=== PATIENT | female | born 1975 | race Caucasian/White ===

== ENCOUNTER 2021-06-03 12:23 | Outpatient (REF) | payer MEDICAID, SELFPAY ==
--- NOTE | ~2021-06-03 | CT_ITS ---
EXAMINATION: CT ABDOMEN AND PELVIS WITH CONTRAST CLINICAL INFORMATION: Left lower quadrant pain COMPARISON: None TECHNIQUE: Multidetector volumetric images were obtained from the superior aspect of the liver through the pubic symphysis following administration 85 mL of Omnipaque 350 intravenous contrast. Sagittal and coronal reformatted images were obtained on the technologist's workstation. Oral contrast: Yes This CT examination was performed using dose optimization techniques as appropriate, variously including the following: *Automated exposure control *Adjustment of mA and/or kV according to patient size (this includes techniques or standardized protocols for targeted exams where dose is matched to indication/reason for exam; i.e. extremities or head) *Use of iterative reconstruction technique DLP: 372 mGy-cm FINDINGS: LUNG BASES: The visualized lung bases are unremarkable. LIVER, GALLBLADDER, AND BILIARY TREE: The liver is normal in size, shape, and attenuation. No focal hepatic lesion or biliary ductal dilatation is present. The gallbladder is unremarkable with no evidence of radiopaque gallstones, gallbladder wall thickening, or obvious pericholecystic inflammatory changes. PANCREAS: Unremarkable. SPLEEN: Unremarkable. ADRENAL GLANDS: Unremarkable. KIDNEYS AND URETERS: The kidneys are normal in size, shape, and attenuation. No hydronephrosis, hydroureter, or calculi seen. No perinephric stranding. BLADDER: Unremarkable. GASTROINTESTINAL TRACT: There is a large amount of stool in the colon suggestive of constipation. The small and large bowel are otherwise unremarkable. The appendix is unremarkable. ABDOMINAL WALL: No significant hernia is appreciated. LYMPH NODES: Normal. VASCULAR: Unremarkable. PELVIC VISCERA: There is a small 2 cm left ovarian cyst. Uterus and adnexa are otherwise unremarkable. OSSEOUS STRUCTURES: Unremarkable. CT/CT abdomen pelvis w con IMPRESSION: Constipation. Small 2 cm left ovarian cyst.
[2021-06-03] MEDS: iohexoL 350 MG/ML 100 ML INFUS..BTL IV (15:28)
[2021-06-03] MEDS: Barium Sulfate Oral (Vanilla) 450 ML ORAL.SUSP 900 ML PO (15:29)
== END 2021-06-03 12:24 | disposition home or self-care (01) ==
LOC: HO.CT 12:23
PROVIDERS: PCP Internal Medicine; Visit Provider Internal Medicine
DX: R10.32 Left lower quadrant pain (principal)
CPT/HCPCS: 74177; Q9967

== ENCOUNTER 2021-06-29 11:57 | Outpatient (REF) | payer MEDICAID, SELFPAY ==
--- NOTE | ~2021-06-29 | XR_ITS ---
EXAMINATION: XR CERVICAL SPINE CLINICAL INFORMATION: Cervicalgia. COMPARISON: None TECHNIQUE: 6 views of the cervical spine, inclusive of flexion and extension views, were obtained. FINDINGS: Some mild degenerative changes are present at C4-C5, C5-C6 and C6-C7. They are most marked, but still somewhat mild at C5-C6, where there is the most joint space narrowing. Foramina are widely patent. No fractures, soft tissue swelling or bony destructive lesions. XR/XR cervical spine min 6V IMPRESSION: Negative exam aside from some mild degenerative changes as described above.
== END 2021-06-29 11:58 | disposition home or self-care (01) ==
LOC: HO.XRAY 11:57
PROVIDERS: Absent Provider Internal Medicine; PCP Internal Medicine; Visit Provider Emergency Medicine
DX: M54.2 Cervicalgia (principal)
CPT/HCPCS: 72052

== ENCOUNTER 2021-07-01 10:30 | Outpatient (REF) | payer MEDICAID, SELFPAY ==
--- NOTE | ~2021-07-01 | MM_ITS ---
EXAMINATION: MM DIAGNOSTIC DIGITAL BREAST TOMOSYNTHESIS, BILATERAL US DIAGNOSTIC ULTRASOUND BREAST, LEFT CLINICAL INFORMATION: Upper left breast pain for approximately one week. No palpable mass or discharge. Due for yearly. Family history breast cancer, paternal aunt. The lifetime risk of breast cancer based on the Tyrer-Cuzick Model is 10%. COMPARISON: Mammography: 11/17/2016, 02/21/2013 TECHNIQUE: Digital breast tomosynthesis is performed in both the craniocaudal and mediolateral oblique views along with computer-aided detection (CAD). Synthesized 2D images are generated from the tomosynthesis. Ultrasound left breast is targeted to the areas of clinical concern, imaging 9:00 through 3:00 position. Grayscale imaging and color Doppler are performed without and with harmonics. FINDINGS: There are scattered areas of fibroglandular density (ACR BI-RADS breast composition Category b). There are no significant masses, abnormal calcifications, or other abnormalities. Parenchymal pattern is similar to prior studies. There is no developing density or interval architectural changes. No coarsening of the Skinny's ligaments. No skin thickening. The axilla are unremarkable. Ultrasound demonstrates no cystic or solid mass, architectural abnormality, or focal duct ectasia. There is no skin thickening or edema tracking in the soft tissue planes. Results are discussed with the patient at time of visit. MM/MM tomosynthesis diagnostic BI IMPRESSION: No mammographic evidence of malignancy or inflammatory changes. Unremarkable targeted left breast ultrasound. ASSESSMENT: BI-RADS 1: Negative RECOMMENDATION: 1. Patient's left breast pain should be managed based on the clinical impression. 2. Otherwise, routine annual screening mammography. This patient's information was entered into a reminder system with a target due date for their next mammogram.
== END 2021-07-01 10:31 | disposition home or self-care (01) ==
LOC: HO.MAMMO 10:30
PROVIDERS: PCP Internal Medicine; Visit Provider Advanced Practice Midwife
DX: N64.4 Mastodynia (principal)
CPT/HCPCS: 76642; 77062; 77066

== ENCOUNTER 2021-07-14 10:09 | Outpatient (REF) | payer MEDICAID, SELFPAY ==
--- NOTE | ~2021-07-14 | US_ITS ---
EXAMINATION: US PELVIS CLINICAL INFORMATION: Dysmenorrhea COMPARISON: Previous CT of the abdomen and pelvis May 2021 TECHNIQUE: Ultrasound of the pelvis is performed using both transabdominal and transvaginal transducers along with Doppler. Transvaginal imaging is performed due to inadequate visualization transabdominally. FINDINGS: The uterus is anteverted and measures 9 x 4.3 x 5 cm in dimension. No focal uterine lesion is seen. Endometrial thickness is normal measuring 1.1 cm. There are nabothian cysts in the cervix. The ovaries are normal-appearing. The right ovary measures 3.5 x 1.3 x 2.2 cm and the left ovary measures 4.3 x 2.4 x 2.2 cm. There is no fluid in the pelvis. There are prominent pelvic vessels bilaterally questionable for pelvic congestion. US/US pelvic and transvaginal IMPRESSION: Prominent bilateral pelvic vessels questionable for pelvic congestion. Otherwise unremarkable exam.
== END 2021-07-14 10:10 | disposition home or self-care (01) ==
LOC: HO.HMGCX 10:09
PROVIDERS: PCP Internal Medicine; Visit Provider Advanced Practice Midwife
DX: N92.0 Excessive and frequent menstruation with regular cycle (principal); N94.6 Dysmenorrhea, unspecified
CPT/HCPCS: 76830; 76856

== ENCOUNTER 2021-12-10 09:46 | Outpatient (REF) | payer MEDICAID, SELFPAY ==
--- NOTE | ~2021-12-10 | US_ITS ---
EXAMINATION: US PELVIS CLINICAL INFORMATION: Pain. COMPARISON: Previous ultrasound July [address] of the abdomen and pelvis May 2021. TECHNIQUE: Ultrasound of the pelvis is performed using both transabdominal and transvaginal transducers along with Doppler. Transvaginal imaging is performed due to inadequate visualization transabdominally. FINDINGS: The uterus is anteverted and measures 8.3 x 4.3 x 5.6 cm in dimension. Endometrial thickness is normal measuring 1.2 cm. No focal uterine lesion is seen. There are small nabothian cysts in the cervix. The right ovary is normal-appearing and measures 4.1 x 2.4 x 2.3 cm. The left ovary measures 3.6 x 2.3 x 2.2 cm. There is a 2.6 x 2.2 x 1.7 cm complex left ovarian cyst. This is irregularly shaped. This has a thickened echogenic wall and internal echoes. This may represent an involuting physiologic cyst. Of note, complex left ovarian cyst is seen on May [address] and previous pelvic ultrasound July 2021 and it is uncertain whether this could represent the same cyst. There is no fluid in the pelvis. US/US pelvic and transvaginal IMPRESSION: 2.6 x 2.2 x 1.7 cm complex left ovarian cyst, question representing an involuting or hemorrhagic cyst. Complex left ovarian cyst is seen on May [address] and previous pelvic ultrasound July 2021 and it is uncertain whether this could represent the same cyst.
== END 2021-12-10 09:47 | disposition home or self-care (01) ==
LOC: HO.HMGCX 09:46
PROVIDERS: PCP Internal Medicine; Visit Provider Internal Medicine
DX: R10.2 Pelvic and perineal pain (principal)
CPT/HCPCS: 76830; 76856

== ENCOUNTER 2022-06-13 07:22 | Outpatient (REF) | payer MEDICAID, SELFPAY | END 2022-06-13 07:23 | disposition home or self-care (01) | LOC: HO.MAMMO 07:22 | PROVIDERS: PCP Internal Medicine; Visit Provider Obstetrics & Gynecology | DX: Z13.89 Encounter for screening for other disorder (principal) ==

== ENCOUNTER 2022-07-19 07:41 | Outpatient (REF) | payer MEDICAID, SELFPAY ==
--- NOTE | ~2022-07-19 | MM_ITS ---
EXAMINATION: MM SCREENING DIGITAL BREAST TOMOSYNTHESIS, BILATERAL CLINICAL INFORMATION: Screening. Asymptomatic. COMPARISON: Mammography: 07/01/2021 and studies dating back to 02/21/2013 TECHNIQUE: Digital breast tomosynthesis is performed in both the craniocaudal and mediolateral oblique views along with computer-aided detection (CAD). Synthesized 2D images are generated from the tomosynthesis. FINDINGS: There are scattered areas of fibroglandular density (ACR BI-RADS breast composition Category b). There is a stable parenchymal pattern of the right breast with no new abnormal dominant mass or suspicious grouping of microcalcifications. There is a question region of architectural distortion which is not completely imaged on left breast craniocaudal projection deep lateral aspect as well as 2 densities seen on the mediolateral oblique projection in the deep superior aspect. Spot compression views and possible ultrasound recommended. MM/MM tomosynthesis screening BI IMPRESSION: Left breast findings for further evaluation as described. ASSESSMENT: BI-RADS 0: Incomplete - Need Additional Imaging Evaluation RECOMMENDATION: 1. Additional views of the left breast 2. Targeted ultrasound if warranted after review of the additional views. 3. Radiology department staff will contact the patient for additional imaging. This patient's information was entered into a reminder system with a target due date for their next mammogram.
== END 2022-07-19 07:42 | disposition home or self-care (01) ==
LOC: HO.MAMMO 07:41
PROVIDERS: PCP Internal Medicine; Visit Provider Internal Medicine
DX: Z12.31 Encounter for screening mammogram for malignant neoplasm of breast (principal)
CPT/HCPCS: 77063; 77067

== ENCOUNTER 2022-07-22 08:40 | Outpatient (REF) | payer MEDICAID, SELFPAY ==
--- NOTE | ~2022-07-22 | MM_ITS ---
EXAMINATION: MM DIAGNOSTIC DIGITAL BREAST TOMOSYNTHESIS, LEFT US BREAST TARGETED, LEFT CLINICAL INFORMATION: Density deep upper outer aspect of the left breast. COMPARISON: Mammography: 07/19/2022 and studies dating back to 02/21/2013 TECHNIQUE: Digital breast tomosynthesis is performed. 2D images are generated from the tomosynthesis. The following views are obtained: Spot compression views and exaggerated craniocaudal and mediolateral oblique projections. Targeted left breast ultrasound. FINDINGS: MAMMOGRAM: There are scattered areas of fibroglandular density (ACR BI-RADS breast composition Category b). Additional views show no significant mass, architectural abnormality, or abnormal calcifications. The questioned region of architectural distortion compresses out and is shown to demonstrate some position of fibroglandular tissue. There is also noted to be a circumscribed density with what appears to be some internal fat within the upper outer aspect of the left breast approximately 5 cm from the nipple measuring 4 x 4 mm in size. This likely represents an intramammary lymph node or cyst. There is persistence of a faintly seen density in the region of the left axilla with measuring approximately 6 x 4 mm area. US TARGETED EXAMINATION BREAST APPROXIMATELY 4 CM NIPPLE, LEFT: There is a simple appearing cyst. Targeted ultrasound at approximately 2 o'clock position 9 cm from nipple demonstrated a cystic structure with the appearance of complex cyst without any internal vascularity or distal sound shadowing. There is some distal sound enhancement and the lesion is wider than it is tall. No suspicious-appearing masses seen. There are some normal-appearing lymph nodes within the axilla with smooth margins, normal fatty clefts, and no evidence of cortical thickening or lobulation. This measures approximately 9 x 4 x 5 mm in size. Recommend 6 month follow-up mammogram and ultrasound. Results are discussed with the patient at time of visit. MM/MM tomosynthesis added views L IMPRESSION: Complex-appearing cyst, deep upper outer aspect of the left breast, for which 6 month follow-up mammography and ultrasound is recommended. ASSESSMENT: BI-RADS 3: Probably Benign RECOMMENDATION: Diagnostic mammography in 6 months. This patient's information was entered into a reminder system with a target due date for their next mammogram.
== END 2022-07-22 08:41 | disposition home or self-care (01) ==
LOC: HO.MAMMO 08:40
PROVIDERS: PCP Internal Medicine; Visit Provider Internal Medicine
DX: R92.2 Inconclusive mammogram (principal)
CPT/HCPCS: 76642; 77061; 77065

== ENCOUNTER 2023-09-16 08:42 | Outpatient (REF) | payer MEDICAID, SELFPAY | END 2023-09-16 08:43 | disposition home or self-care (01) | LOC: HO.LAB 08:42 | PROVIDERS: PCP Internal Medicine; Visit Provider Internal Medicine | DX: Z00.00 Encounter for general adult medical examination without abnormal findings (principal); G43.909 Migraine, unspecified, not intractable, without status migrainosus | CPT/HCPCS: 36415; 80048; 80061; 80076; 85025 ==

== ENCOUNTER 2023-10-13 14:27 | Outpatient (REF) | payer MEDICAID, SELFPAY ==
--- NOTE | ~2023-10-13 | US_ITS ---
EXAMINATION: US PELVIS COMPLETE CLINICAL INFORMATION: Complex ovarian cyst; the last menstrual period is not specified. COMPARISON: Pelvic ultrasound dated 12/10/2021. TECHNIQUE: Transabdominal and transvaginal imaging were performed. FINDINGS: The uterus is of normal size and echogenicity measuring 7.3 x 3.8 x 4.9 cm. The uterus is anteverted and anteflexed. A regular, homogeneous endometrium is identified measuring 0.6 cm. FIBROIDS: There is 1 fibroid seen. 1. Location: Fundus. Size: 1.0 x 0.8 x 1.0 cm. Fibroid characteristics: Hypoechoic, possibly showing central degenerative necrosis. Both ovaries are of normal size and echogenicity. The right ovary measures 2.9 x 1.2 x 1.9 cm for a volume of 3.5 mL. The right ovary contains a 1.1 cm dominant, simple physiologic follicle. This requires no imaging follow-up. The left ovary measures 3.1 x 2.1 x 2.5 cm for a volume of 8.5 mL. There is no pelvic free fluid. No adnexal mass is seen. US/US pelvic and transvaginal IMPRESSION: A small degenerating fundal fibroid is seen. The examination is otherwise unremarkable.
== END 2023-10-13 14:28 | disposition home or self-care (01) ==
LOC: HO.US 14:27
PROVIDERS: PCP Internal Medicine; Visit Provider Internal Medicine
DX: N60.09 Solitary cyst of unspecified breast (principal)
CPT/HCPCS: 76830; 76856

== ENCOUNTER 2023-12-26 11:29 | Outpatient (REF) | payer MEDICAID, SELFPAY ==
[2023-12-28 22:39] LABS: TS Negative Control Passed; TS Panel A 0; TS Panel B 0; TS Positive Control Passed; TSpotTB Negative (Negative)
== END 2023-12-26 11:30 | disposition home or self-care (01) ==
LOC: HO.HHCL 11:29
PROVIDERS: Visit Provider Internal Medicine
DX: Z11.1 Encounter for screening for respiratory tuberculosis (principal)
CPT/HCPCS: 36415; 86481

== ENCOUNTER 2024-05-10 15:08 | Outpatient (REF) | payer MEDICAID, SELFPAY ==
--- NOTE | ~2024-05-10 | CT_ITS ---
EXAMINATION: CT HEAD WITHOUT CONTRAST CLINICAL INFORMATION: Left facial numbness for 2 to 3 weeks COMPARISON: None available. TECHNIQUE: Contiguous axial imaging was performed from the skull base to vertex without intravenous administration of contrast. This CT examination was performed using dose optimization techniques as appropriate, variously including the following: *Automated exposure control *Adjustment of mA and/or kV according to patient size (this includes techniques or standardized protocols for targeted exams where dose is matched to indication/reason for exam; i.e. extremities or head) *Use of iterative reconstruction technique DLP: 713 mGy-cm RESULTS: There is no evidence of acute intracranial hemorrhage, acute large vessel infarct, midline shift or mass effect. The tang-white differentiation is preserved. The ventricles and sulci are within normal limits in size and configuration. There is no evidence of hydrocephalus. There are no extraaxial collections. Osseous structures are intact. Paranasal sinuses and mastoid air cells are well aerated. CT/CT head/brain wo IV con IMPRESSION: Unremarkable non-contrast CT of the brain. Electronically signed by: Melyssa Andersen MD 05/11/2024 11:45 AM EDT
== END 2024-05-10 15:09 | disposition home or self-care (01) ==
LOC: HO.CT 15:08
PROVIDERS: PCP Internal Medicine; Visit Provider Registered Nurse
DX: R20.0 Anesthesia of skin (principal); R20.2 Paresthesia of skin; R20.8 Other disturbances of skin sensation
CPT/HCPCS: 70450

== ENCOUNTER 2024-09-17 15:14 | Outpatient (REF) | payer MEDICAID, SELFPAY ==
--- NOTE | ~2024-09-17 | XR_ITS ---
EXAMINATION: Left shoulder and cervical spine. CLINICAL INDICATION: Neck pain and left shoulder pain. COMPARISON: Cervical spine 06/29/2021 TECHNIQUE: Cervical spine 3 views. Left shoulder 3 views. FINDINGS: Cervical spine: There is maintained cervical lordosis. The vertebral heights and alignment is normal. There is mild loss of C5-6 disc height with mild posterior spondylosis. Rest the disc heights are normal. The craniovertebral junction and C1-C2 alignment is normal. There is no visible acute fracture, dislocation or subluxation seen. The prevertebral soft tissues are normal. Left shoulder: The glenohumeral and AC joint spaces maintain normal. No acute fracture, dislocation or subluxation seen. The soft tissues are normal. XR/XR cervical spine 3V IMPRESSION: Unremarkable left shoulder exam. Degenerative disc changes C5-6 disc level with mild posterior spondylosis. Electronically signed by: Stefano Noel MD 09/17/2024 04:21 PM [facility]
--- NOTE | ~2024-09-17 | XR_ITS ---
EXAMINATION: Left shoulder and cervical spine. CLINICAL INDICATION: Neck pain and left shoulder pain. COMPARISON: Cervical spine 06/29/2021 TECHNIQUE: Cervical spine 3 views. Left shoulder 3 views. FINDINGS: Cervical spine: There is maintained cervical lordosis. The vertebral heights and alignment is normal. There is mild loss of C5-6 disc height with mild posterior spondylosis. Rest the disc heights are normal. The craniovertebral junction and C1-C2 alignment is normal. There is no visible acute fracture, dislocation or subluxation seen. The prevertebral soft tissues are normal. Left shoulder: The glenohumeral and AC joint spaces maintain normal. No acute fracture, dislocation or subluxation seen. The soft tissues are normal. XR/XR shoulder LT min 2V IMPRESSION: Unremarkable left shoulder exam. Degenerative disc changes C5-6 disc level with mild posterior spondylosis. Electronically signed by: Stefano Noel MD 09/17/2024 04:21 PM [facility]
== END 2024-09-17 15:15 | disposition home or self-care (01) ==
LOC: HO.HHCX 15:14
PROVIDERS: Visit Provider Internal Medicine
DX: M54.2 Cervicalgia (principal); M25.512 Pain in left shoulder
CPT/HCPCS: 72040; 73030

== ENCOUNTER → 2024-09-17 15:15 | Outpatient (BNV) | payer MEDICAID, SELFPAY | PROVIDERS: Visit Provider Radiology Diagnostic Radiology | DX: M25.512 Pain in left shoulder (principal); M54.2 Cervicalgia | CPT/HCPCS: 72040; 73030 ==

== ENCOUNTER 2024-09-23 13:03 | Outpatient (REF) | payer MEDICAID, SELFPAY | END 2024-09-23 13:04 | disposition home or self-care (01) | LOC: HO.HHCLNP 13:03 | PROVIDERS: Visit Provider Internal Medicine | DX: R35.0 Frequency of micturition (principal) | CPT/HCPCS: 87086 ==

== ENCOUNTER 2024-10-08 05:57 | Outpatient (REF) | payer MEDICAID, SELFPAY ==
--- NOTE | 2024-10-08 | EMG_ITS ---
Left median and ulnar motor and sensory studies were performed. Left radial sensory and median and lateral antecubital brachial sensory studies were performed, and paraspinal muscles were tested with a needle. IMPRESSION: This is an unremarkable study with no significant abnormality noted. MD STEVEN Collazo/ROZ / [id number]
--- OUTSIDE RECORDS SUMMARY | 2024-10-08 05:59 | XMS_ITS | Encounter Summary ---
Author Organization [employer] Address [address] [place] [address] [address] [place] [address] Care Team Providers Care Industrial Retrofit Designer Name Role Phone Gilmer Alvarez MD Primary Care Provide r Encounter Details Date Type Department Care Team (Late Contact Info) Description 09/08/2022 Telephone [facility] [address] [place] [address] [phone] Gilmer Alvarez MD [address] [place] [address] [phone] Social History Tobacco Use Types Packs/Day Years Used Date Smoking Tobacco: Never Assessed Comments Unknown Sex and Gender Information Value Date Recorded Sex Assigned at Female 07/11/2022 10:16 AM EDT Legal Sex Female 10:16 AM EDT Gender Identity Female 07/11/2022 10:16 AM EDT Sexual Orientation Straight 07/11/2022 10 :16 AM EDT COVID-19 Exposure Response Date Recorded In the last 10 days, have yo u been in contact with someone who was confirmed or suspected to have Coronavirus/COVID-19? No / Unsure 09/01/2022 10:22 AM EST documented as of this encounter Plan of Treatment Upcoming Encounters Date Type Department Care Team (Late st Contact Info) Description 11/19/2024 11:15 AM EDT Office Visit [facility] [address] [place] [phone] Gilmer Alvarez MD [address] [place] [address] [phone] documented as of this encounter Visit Diagnoses Not on filedocumented in this encounter Care Teams Industrial Retrofit Designer Relationship Specialty Start Date End Date Gilmer Alvarez MD [address] [place] [address] PCP - General Internal Medicine 06/18/14 documented as of this encounter
--- OUTSIDE RECORDS SUMMARY | 2024-10-08 05:59 | XMS_ITS | Encounter Summary ---
Author Organization [employer] Address [address] [place] [address] Care Team Providers Care Sap Administrator Name Role Phone Gilmer Alvarez MD Primary Care Provide r Encounter Details Date Type Department Care Team ([facility] st Contact Info) Description 09/17/2024 Telephone [facility] [address] [place], [place] [phone] Gilmer Alvarez MD [address] [place], [place] [phone] Social History Tobacco Use Types Packs/Day Years Used Date Smoking Tobacco: Never Passive Smoke Exposure: Never Smokeless Tobacco: Never Depression Answer Date Recorded Patient Health Questionnaire-9 Score 0 09/17/2024 Patient Health Questionnaire-9 Score 0 09/17/2024 Last PHQ-9: Questionnaire Data Not on file 0 09/17/2024 Housing Stability Answer Date Recorded What is your housing situation today? I have veronica pleitez 09/05/[address] you li ve. Do you have problems with any of the following? None of the above 09/05/2024 Food Insecurity Answer Date Recorded Within the past 12 months, y ou worried that your food would run out before you got money to buy more: Never True 09/05/2024 Within the past 12 months,th e food you bought just didn't last and you didn't have enough money to get more: Never True Transportation Answer Date Recorded In the past 12 months, has l ack of transportation kept you from medical appts, meetings, work or from getting things needed for daily living? No 09/05/2024 Utilities Answer Date Recorded In the past 12 months, has t he electric, gas, oil or water company threatened to shut off services in your home? No 09/05/2024 Depression Answer Date Recorded Patient Health Questionnaire-2 Score 0 09/17/2024 Internet Access Answer Date Recorded Internet Access Q1 Yes 09/05/2024 Internet Access Q2 Not on file 09/05/2024 Comments Unknown Sex and Gender Information Value Date Recorded Sex Assigned at Female 07/11/2022 10:16 AM EDT Legal Sex Female 10:16 AM EDT Gender Identity Female 07/11/2022 10:16 AM EDT Sexual Orientation Straight 07/11/2022 10 :16 AM EDT documented as of this encounter Plan of Treatment Upcoming Encounters Date Type Department Care Team (Late st Contact Info) Description 11/19/2024 11:15 AM EDT Office Visit [facility] [address] [place] [phone] Gilmer Alvarez MD [address] [place] [phone] documented as of this encounter Visit Diagnoses Not on filedocumented in this encounter Additional Health Concerns Assessment Noted Time PHQ-9 Depression Total Score: 0 09/17/19 25 2:35 PM EST documented as of this encounter Care Teams Sap Administrator Relationship Specialty Start Date End Date Gilmer Alvarez MD [address] [place] [phone] PCP - General Internal Medicine 06/18/14 documented as of this encounter
--- OUTSIDE RECORDS SUMMARY | 2024-10-08 05:59 | XMS_ITS | Clinical Summary ---
Author Organization [facility] Address [address] [place] [address] Phone Care Team Providers Care Family Therapist Name Role Phone Gilmer Silverio MD Primary Care Provi kirsty Allergies No known active allergies Medications Medication Sig Dispensed Refills Start Date End Date Status diphenhydrAMINE (BENADRYL) 25 mg capsule Take 1 capsule (25 mg total) by mouth every 4 (four) hours if needed for itching for up to 4 days. 16 capsule 08/07/2024 Active predniSONE (DELTASONE) 20 mg tablet Take 3 tablets (60 mg total) by mouth 1 (one) time each day. 15 tablet 09/25/2024 Active doxycycline (MONODOX) 100 mg capsule Take 1 capsule (100 mg total) by mouth 2 (two) times a day for 7 days. Take with at least 8 ounces (large glass) of water, do not lie down for 30 minutes after 14 each 09/25/2024 10/02/2024 Active Problems No known active problems Encounters Date Type Department Care Team Description 09/25/2024 6:20 PM EST - 09/25/2024 10:38 PM EST Emergency [facility] Emergency [address] [place] [address] Yogi Carrillo DO Acute cough (Primary Dx) Discharge Disposition: Home or Self Care 08/07/2024 10:44 AM EST - 08/07/2024 11:21 AM EST Emergency [facility] Emergency [address] [place] [address] Tinea corporis (Primary Dx) Discharge Disposition: Home or Self Care from Last 3 Months Medical History Medical History Date Comments Migraines Asthma Social History Tobacco Use Types Packs/Day Years Used Date Smoking Tobacco: Never Smokeless Tobacco: Never Tobacco Cessation:Counseling Given: Not Answered Alcohol Use Standard Drinks/Week Comments Not Asked 0 (1 standard drink = 0.6 oz pur e alcohol) Sex and Gender Information Value Date Recorded Sex Assigned at Female 08/07/2024 10:56 AM EST Gender Identity Female 08/07/2024 10:56 AM EST Sexual Orientation Straight 08/07/2024 10 :56 AM EST Job Start Date Occupation Industry Not on file Not on file Not on file Obstetrics History Last Filed Vital Signs Vital Sign Reading Time Taken Comments Blood Pressure 134/72 09/25/2024 10:18 PM EST Pulse 111 09/25/2024 10:18 PM EST Temperature 37 ??C (98.6 ??F) 09/25/2024 10:18 PM EST Respiratory Rate 26 09/25/2024 6:07 PM EST Oxygen Saturation 96% 09/25/2024 10:18 PM EST Inhaled Oxygen Concentration - - Weight 72.6 kg (160 lb) 09/25/2024 6:07 PM EST Height 154.9 cm (5' 1 ) 09/25/2024 6:07 PM EST Body Mass Index 30.23 09/25/2024 6:07 PM EST Plan of Treatment Health Maintenance Due Date Last Done Comments Breast Cancer Screening 1975 Pneumococcal Vaccine: Pediatrics (0 to 5 Years) and At-Risk Patients (6 to 64 Years) (1 of 2 - PCV) 12/04/1981 Cervical Cancer Screening: P ap Smear 12/04/1996 Cholesterol Screening (Lipid Panel) 08/14/2022 Colorectal Cancer Screening: Colonoscopy 08/14/2022 Social Influencers of Health Screening 08/14/2022 COVID-19 Vaccine (2023-2 5 season) 2024 09/17/2021, 02/23/2021, 01/26/2021 Influenza Vaccine (#1) 2024 06/23/2021 Depression Screening 09/17/2025 09/17/2024 Hypertension/CHF/CAD Annual BMP Blood Test 09/25/2025 09/25/2024 DTaP,Tdap,and Td Vaccines (2 - Td or Tdap) 06/23/2031 06/23/2021 Hepatitis B Vaccines Completed 02/18/2009, 08/26/2008, 07/10/2008 HIV Screening Completed 09/02/2022 Hepatitis C Screening Completed 09/02/2022 HIB Vaccines Aged Out No longer eligi ble based on patient's age to complete this topic HPV Vaccines Aged Out No longer eligi ble based on patient's age to complete this topic Hepatitis A Vaccines Aged Out No long er eligible based on patient's age to complete this topic IPV Vaccines Aged Out No longer eligi ble based on patient's age to complete this topic MMR Vaccines Aged Out No longer eligi ble based on patient's age to complete this topic Meningococcal ACWY Vaccine Aged Out N o longer eligible based on patient's age to complete this topic RSV Immunization Patients Under 20 months Aged Out No longer eligible b ased on patient's age to complete this topic Varicella Vaccines Aged Out No longer eligible based on patient's age to complete this topic Procedures Procedure Name Priority Date/Time Associated Diagnosis Comments XR CHEST 2 VIEWS STAT 09/25/2024 9:20 PM EST COMPREHENSIVE METABOLIC PANEL STAT 09/25/2024 7:31 PM EST COMPLETE BLOOD COUNT STAT 09/25/2024 7:31 PM EST RESPIRATORY VIRUS PANEL MOLECULAR STUDY STAT 09/25/2024 7:25 PM EST from Last 3 Months Results * XR Chest 2 Views (09/25/2024 9:20 PM EST) Anatomical Region Laterality Modality Body Radiographic Rebecca ging 09/26/2024 8:31 AM EST Impressions 09/26/2024 8:31 AM EST Normal chest radiographs. -------- FINAL REPORT -------- Dictated By: Enmanuel Friend Dictated Date: 09/26/2024 08:31 ET Assigned Physician: Enmanuel Friend Reviewed and Electronically Signed By: Enmanuel Friend Signed Date: 09/26/2024 08:31 ET Workstation ID: [id number] Transcribed By: Self Edit Transcribed Date: 09/26/2024 08:31 ET Narrative 09/26/2024 8:31 AM EST PROCEDURE: PA and lateral radiographs of the chest. HISTORY: dyspnea. COMPARISON: 12/18/2023. FINDINGS: The heart, mediastinum, lungs, pleural spaces, and bony thorax are normal. Procedure Note Enmanuel Friend MD - 09/26/2024 PROCEDURE: PA and lateral radiographs of the chest. HISTORY: dyspnea. COMPARISON: 12/18/2023. FINDINGS: The heart, mediastinum, lungs, pleural spaces, and bony thorax arenormal. IMPRESSION: Normal chest radiographs. -------- FINAL REPORT -------- Dictated By: Enmanuel Friend Dictated Date: 09/26/2024 08:31 ET Assigned Physician: Enmanuel Friend Reviewed and Electronically Signed By: Enmanuel Friend Signed Date: 09/26/2024 08:31 ET Workstation ID: [id number] Transcribed By: Self Edit Transcribed Date: 09/26/2024 08:31 ET Lauri PERDOMO IMG XR PROCEDURES * (ABNORMAL) CBC (09/25/2024 7:31 PM EST) WBC 18.7(H) 4.8 - 10.8 K/mcL LAB HEMETOLOGY METHOD 09/25/2024 8:08 PM [facility] RBC 5.10(H) 3.80 - 4.80 M/mcL LAB HEMETOLOGY METHOD 09/25/2024 8:08 PM [facility] Hemoglobin 13.4 11.5 - 16.0 g/dL LAB HEMETOLOGY METHOD 09/25/2024 8:08 PM [facility] Hematocrit 42.1 35.0 - 47.0 % LAB HEMETOLOGY METHOD 09/25/2024 8:08 PM [facility] MCV 82.9 79.0 - 98.0 FL LAB HEMETOLOGY METHOD 09/25/2024 8:08 PM EST [facility] MCH 26.4(L) 27.0 - 32.0 pcg LAB HEMETOLOGY METHOD 09/25/2024 8:08 PM EST [facility] MCHC 31.8(L) 32.0 - 37.0 g/dL LAB HEMETOLOGY METHOD 09/25/2024 8:08 PM EST [facility] RDW 15.7(H) 11.0 - 15.0 % LAB HEMETOLOGY METHOD 09/25/2024 8:08 PM [facility] Platelets 427(H) 130 - 400 K/mcL LAB HEMETOLOGY METHOD 09/25/2024 8:08 PM [facility] MPV 11.7(H) 7.0 - 11.0 FL LAB HEMETOLOGY METHOD 09/25/2024 8:08 PM EST [facility] NRBC 0.0 <1.0 % LAB HEMETOLOGY METHOD 09/25/2024 8:08 PM EST [facility] NRBC Absolute 0.00 <0.10 K/mcL LAB HEMETOLOGY METHOD 09/25/2024 8:08 PM [facility] Blood Venous blood specimen / Unknown Venipuncture / Unknown 09/25/2024 7:31 PM EST 09/25/2024 7:57 PM EST Chio Ritchie DO LAB BLOOD ORDERAB LES [facility] [address] [place] [address], * (ABNORMAL) Comprehensive metabolic panel (09/25/2024 7:31 PM EST) Sodium 137 133 - 145 mmol/L LAB CHEMISTRY METHOD 09/25/2024 8:54 PM EST [facility] Potassium 3.7 3.5 - 5.5 mmol/L LAB CHEMISTRY METHOD 09/25/2024 8:54 PM [facility] Chloride 106 96 - 110 mmol/L LAB CHEMISTRY METHOD 09/25/2024 8:54 PM [facility] CO2 23 21 - 32 mmol/L LAB CHEMISTRY METHOD 09/25/2024 8:54 PM [facility] Anion Gap 8 3 - 11 LAB CHEMISTRY METHOD 09/25/2024 8:54 PM [facility] Glucose 98 70 - 100 mg/dL LAB CHEMISTRY METHOD 09/25/2024 8:54 PM [facility] BUN 16 5 - 25 mg/dL LAB CHEMISTRY METHOD 09/25/2024 8:54 PM [facility] Creatinine 0.86 0.50 - 1.10 mg/dL LAB CHEMISTRY METHOD 09/25/2024 8:54 PM [facility] eGFR 83 >=60 mL/min/1. 73m2 LAB CHEMISTRY METHOD 09/25/2024 8:54 PM [facility] Comment:Calculation based on the??Chronic Kidney Disease Epidemiology Collaboration (CKD-EPI) equation refit??without adjustment for race. BUN/Creatinine Ratio 18.6 LAB CHEMISTRY METHOD 09/25/2024 8:54 PM [facility] Calcium 9.7 8.5 - 10.5 mg/dL LAB CHEMISTRY METHOD 09/25/2024 8:54 PM [facility] AST (SGOT) 52(H) 10 - 42 unit/L LAB CHEMISTRY METHOD 09/25/2024 8:54 PM [facility] ALT (SGPT) 64(H) 10 - 60 unit/L LAB CHEMISTRY METHOD 09/25/2024 8:54 PM [facility] Alkaline Phosphatase 99 42 - 121 unit/L LAB CHEMISTRY METHOD 09/25/2024 8:54 PM [facility] Total Protein 8.4(H) 6.0 - 8.0 g/dL LAB CHEMISTRY METHOD 09/25/2024 8:54 PM EST [facility] Albumin 4.3 3.2 - 5.0 g/dL LAB CHEMISTRY METHOD 09/25/2024 8:54 PM EST [facility] Total Bilirubin 0.3 0.0 - 1.4 mg/dL LAB CHEMISTRY METHOD 09/25/2024 8:54 PM EST [facility] Blood Venous blood specimen / Unknown Venipuncture / Unknown 09/25/2024 7:31 PM EST 09/25/2024 7:57 PM EST Chio Haji Ritchie DO LAB BLOOD ORDERAB LES [facility] [address] [place] [address], * Respiratory virus panel molecular study (09/25/2024 7:25 PM EST) Adenovirus Detection by PCR Not Detected Not Detected LAB MICROBIOLOGY METHOD 09/25/2024 9:18 PM [facility] Influenza A PCR Not Detected Not Detected LAB MICROBIOLOGY METHOD 09/25/2024 9:18 PM [facility] Influenza B PCR Not Detected Not Detected LAB MICROBIOLOGY METHOD 09/25/2024 9:18 PM [facility] Coronavirus 229E Not Detected Not Detected LAB MICROBIOLOGY METHOD 09/25/2024 9:18 PM EST [facility] Coronavirus HKU1 Not Detected Not Detected LAB MICROBIOLOGY METHOD 09/25/2024 9:18 PM EST [facility] Coronavirus OC43 Not Detected Not Detected LAB MICROBIOLOGY METHOD 09/25/2024 9:18 PM [facility] Coronavirus NL63 Not Detected Not Detected LAB MICROBIOLOGY METHOD 09/25/2024 9:18 PM EST [facility] Parainfluenza Virus 1 Not Detected Not Detected LAB MICROBIOLOGY METHOD 09/25/2024 9:18 PM [facility] Parainfluenza Virus 2 Not Detected Not Detected LAB MICROBIOLOGY METHOD 09/25/2024 9:18 PM [facility] Parainfluenza Virus 3 Not Detected Not Detected LAB MICROBIOLOGY METHOD 09/25/2024 9:18 PM [facility] Parainfluenza Virus 4 Not Detected Not Detected LAB MICROBIOLOGY METHOD 09/25/2024 9:18 PM [facility] RSV PCR Not Detected Not Detected LAB MICROBIOLOGY METHOD 09/25/2024 9:18 PM [facility] Human Metapneumovirus A and B Not Detected Not Detected LAB MICROBIOLOGY METHOD 09/25/2024 9:18 PM [facility] Rhinovirus/Entero virus Not Detected Not Detected LAB MICROBIOLOGY METHOD 09/25/2024 9:18 PM [facility] Bordetella pertussis Not Detected Not Detected LAB MICROBIOLOGY METHOD 09/25/2024 9:18 PM [facility] Bordetella parapertussis Not Detected Not Detected LAB MICROBIOLOGY METHOD 09/25/2024 9:18 PM [facility] Mycoplasma pneumo by PCR Not Detected Not Detected LAB MICROBIOLOGY METHOD 09/25/2024 9:18 PM [facility] Chlamydia pneumoniae Not Detected Not Detected LAB MICROBIOLOGY METHOD 09/25/2024 9:18 PM [facility] SARS COV-2 Not Detected Not Detected LAB MICROBIOLOGY METHOD 09/25/2024 9:18 PM [facility] Swab Both anterior nares / Unknown Non-blood Collection / Unknown 09/25/2024 7:25 PM EST 09/25/2024 8:17 PM EST [facility] - 09/25/2024 9:18 PM EST Testing was performed using the [employer] Respiratory Pathogen PCR Assay. All results must be correlated with the clinical findings. Results should not be used as the sole basis for diagnosis. False Negative results may occur from the presence of sequence variants in the region targeted by the assay or the presence of inhibitors. Results may be affected by concurrent antiviral/antimicrobial therapy or levels of organisms that are below the limit of detection. Yogi Carrillo DO LAB MICROBIOLOGY - G ENERAL ORDERABLES [facility] [address] [place] [address], from Last 3 Months Care Teams Family Therapist Relationship Specialty Start Date End Date Gilmer Silverio MD [address] [place] [address] PCP - General Internal Medicine 08/07/24
--- OUTSIDE RECORDS SUMMARY | 2024-10-08 05:59 | XMS_ITS | Clinical Summary ---
Author Organization [employer] Address [address] [place] [address] Care Team Providers Care Stain Applicator Name Role Phone Gilmer Alvarez MD Primary Care Provide r Allergies No known active allergies Medications * This document contains information received from the source organization and may not represent a complete record from that organization. ibuprofen 800 MG tablet TAKE 1 TABLET BY MOUTH THREE TIMES DAILY NEEDED FOR PAIN 06/27/20 22 Active polyethylene glycol, PEG, 3350 (Glycolax) 17 GM/SCOOP powder TAKE 17 GM MIXED IN 8 OUNCES OF WATER ONCE DAILY 01/25/20 22 Active FeroSul 325 (65 Fe) MG tablet TAKE 1 TABLET BY MOUTH EVERY OTHER DAY 90 tablet 01/04/20 23 Active rizatriptan (Maxalt) 10 MG tablet TAKE 1 TABLET BY MOUTH EVERY DAY AT ONSET OF MIGRAINE, MAY REPEAT IN 4 HOURS NEEDED, DO NOT EXCEED 2 DOSES / 24 HOURS 10/10/19 24 Active topiramate 50 MG tablet Take 1 tablet by mouth at bedtime. 10/10/19 24 Active ondansetron ODT (Zofran-ODT) 4 MG disintegrating tablet DISSOLVE 1 TABLET BY MOUTH EVERY DAY NEEDED FOR NAUSEA 20 tablet 11/09/19 24 Active omeprazole (PriLOSEC) [address] capsule TAKE 1 CAPSULE BY MOUTH EVERY DAY 30 MINUTES TO 1 HOUR BEFORE A MEAL 90 capsule 11/10/19 24 Active SUMAtriptan (Imitrex) 50 MG tablet TAKE 1 TABLET BY MOUTH AT ONSET OF MIGRAINE. MAY REPEAT ONCE AFTER 2 HOURS IF NEEDED DO NOT EXCEED 4 TABLETS IN 24 HOURS 6 tablet 01/25/20 24 Active buPROPion XL (Wellbutrin XL) 150 MG 24 hr tabletIndications: Depressive disorder Take 1 tablet (150 mg) by mouth Once per day. Do not crush, chew, or split. 30 tablet 6 03/05/20 24 Active hydrOXYzine pamoate (Vistaril) 25 MG capsuleIndications :Anxiety TAKE 1 CAPSULE BY MOUTH EVERY 8 HOURS NEEDED FOR ANXIETY 90 capsule 1 04/22/20 24 Active fluticasone (Flonase) 50 MCG/ACT nasal sprayIndications:R ight ear pain Administer 1-2 sprays into each nostril Once per day. Shake gently. Before first use, prime pump. After use, clean tip and replace cap. 16 g 2 08/02/20 24 025 Active cetirizine (ZyrTEC) 10 MG tabletIndications: Right ear pain Take 1 tablet (10 mg) by mouth Once per day. 30 tablet 5 08/02/20 24 025 Active clotrimazole (Lotrimin) 1 % creamIndications:T inea corporis Apply to affected area of skin twice a day until resolved, between 1-3 weeks. 60 g 1 08/05/20 24 Active amLODIPine (Norvasc) 2.5 MG tabletIndications: Primary hypertension Take 1 tablet (2.5 mg) by mouth Once per day. 30 tablet 3 08/15/20 24 Active Blood Pressure kitIndications:Lucia trey hypertension Use once a week 1 kit 09/17/19 25 Active predniSONE (Deltasone) 20 MG tabletIndications: Cough, unspecified type 2 tabs po daily for 5 days 10 tablet 09/23/19 25 Active predniSONE (Deltasone) 20 MG tabletIndications: Cervical spondylosis,Numbne ss and tingling in left arm 2 tabs po daily for 5 days 10 tablet 04/24/20 24 025 Discontinu ed(Therapy completed) guaiFENesin (Robitussin) 100 MG/5ML liquidIndications: Cough, unspecified type Take 10 mL (200 mg) by mouth if needed in the morning, at noon, and at bedtime for cough for up to 10 days. 120 mL 09/17/19 25 025 Discontinu ed(Therapy completed) benzonatate (Tessalon Perles) 100 MG capsuleIndications :Cough, unspecified type Take 1 capsule (100 mg) by mouth if needed in the morning, at noon, and at bedtime for cough for up to 7 days. Do not crush or chew. 20 capsule 09/23/19 25 025 acetaminophen (Tylenol Extra Strength) 500 MG tabletIndications: Cough, unspecified type Take 1 tablet (500 mg) by mouth every 6 (six) hours if needed for mild pain for up to 10 days. 30 tablet 09/23/19 25 025 Active Problems Problem Noted Date Diagnosed Date Neck pain on left side 09/17/2024 Assessment & Plan (09/17/2024 2:54 PM EST): Pt with c/o left sided neck pain radiates to left shoulder and arm Exam: evidence of muscle spasm Plan: Plain films, PT eval NCS to rule out radiculopathy Acute pain of left shoulder 09/17/2024 Assessment & Plan (09/17/2024 2:54 PM EST): Pt with c/o left sided neck pain radiates to left shoulder and arm Exam: evidence of muscle spasm Plan: Plain films, PT eval NCS to rule out radiculopathy Cough 09/17/2024 Assessment & Plan (09/17/2024 3:04 PM EST): Pt with mild non productive cough, lungs CTA B. Neg rapid flu and neg rapid covid tests Plan: Supportive measures, guaifenesin PRN. Ok to go back to work Subconjunctival hemorrhage of left eye Assessment & Plan (08/15/2024 12:16 PM EST): -no other symptoms -appointment for tomorrow with [facility] eye care 3:30 -Advised to go to ER for increased pain, vision changes, worsening symptoms or concerns. She agrees with the plan. Primary hypertension 08/15/2024 Assessment & Plan (09/17/2024 2:57 PM EST): Pt's blood pressure elevated recently started on Amlodipine 2.5mg daily 08/15/24. At [facility] Pt did not take it today Plan: BP monitor Follow up 8 weeks Assessment & Plan (08/15/2024 12:15 PM EST): -restart amlodipine 2.5mg daily 08/15/24 Breast pain, left 03/05/2024 Assessment & Plan (09/17/2024 2:41 PM EST): Pt had a Mammogram 07/2022 that showed a complex-appearing cyst, deep upper outer aspect of the left breast, for which 6 month follow-up mammography and ultrasound was recommended. Repeat Mammogram 03/15/2023 showed a suspicious mass for which a breast biopsy was recommended Biopsy was done 03/29/2023 . No evidence of malignancy, 6 month follow up was recommended Pt last visit c/o persistent pain left breast She was referred back to the Breast and wellness Ctr at [facility]. She was seen 04/03/2024 and reassured that there was no breast sources of her pain and it was likely referred pain Assessment & Plan (03/05/2024 1:10 PM EDT): Pt had a Mammogram 07/2022 that showed a complex-appearing cyst, deep upper outer aspect of the left breast, for which 6 month follow-up mammography and ultrasound was recommended. Repeat Mammogram 03/15/2023 showed a suspicious mass for which a breast biopsy was recommended Biopsy was done 03/29/2023 . No evidence of malignancy, 6 month follow up was recommended Pt today c/o persistent pain left breast Plan: Will refer back to the Breast and wellness Ctr at [facility] Adjustment disorder with anxiety 12/13/2023 Assessment & Plan (12/13/2023 11:32 AM EDT): During [facility]BH Consult Purnima presenting with excessive worry/anxiety, difficulty controlling worry, restless/keyed up/On edge, easily fatigued, difficulty concentrating/Mind going blank , irritability, muscle tension, and sleep disturbance difficulty falling asleep and palpitations, trembling/shaking, sensation of shortness of breath/smothering, Chest pain/discomfort, nausea/abdominal distress, dizzy/unsteady/light-headed/faint, numbness/tingling, fear of losing control, Persistent concern/worry of panic attacks or their consequences; for a period of 0-6 mo, for all symptoms in the context of illness or family illness. Purnima received bad news from the hospital where her is currently staying. This news is leading to increase of symptoms and episodes of panic attacks. Pt reports having difficulty adjusting to drastic changes. Made a plan to utilize when experiencing high increase of sxs which includes coping mechanisms to regulate emotions. Pt interested on starting medication to help with sleep routine. Request sent to provider. PLAN: (check all that apply) Behavioral Health Integration Plan Patient Self Plan Patient to utilize skills provided in intervention , Patient to reach out to [facility] team as needed, Comply with medication , and Patient to reach out to [facility] as needed. Varicose vein of leg 09/12/2023 09/12/2023 Complex cyst of breast 09/12/2023 Assessment & Plan (09/17/2024 2:42 PM EST): Pt had a Mammogram 07/2022 that showed a complex-appearing cyst, deep upper outer aspect of the left breast, for which 6 month follow-up mammography and ultrasound was recommended. Repeat Mammogram 03/15/2023 showed a suspicious mass for which a breast biopsy was recommended Biopsy was done 03/29/2023 . No evidence of malignancy, 6 month follow up was recommended She was referred back to the Breast and wellness Ctr at [facility]. She was seen 04/03/2024 and reassured that there was no breast sources of her pain and it was likely referred pain Assessment & Plan (03/05/2024 1:10 PM EDT): Pt had a Mammogram 07/2022 that showed a complex-appearing cyst, deep upper outer aspect of the left breast, for which 6 month follow-up mammography and ultrasound was recommended. Repeat Mammogram 03/15/2023 showed a suspicious mass for which a breast biopsy was recommended Biopsy was done 03/29/2023 . No evidence of malignancy, 6 month follow up was recommended Pt today c/o persistent pain left breast Plan: Will refer back to the Breast and wellness Ctr at [facility] Breast mass, left 09/01/2022 Assessment & Plan (09/12/2023 10:55 AM EST): Pt had a Mammogram 07/2022 that showed a complex-appearing cyst, deep upper outer aspect of the left breast, for which 6 month follow-up mammography and ultrasound was recommended. Repeat Mammogram 03/15/2023 showed a suspicious mass for which a breast biopsy is recommended Biopsy was done 03/29/2023 . No evidence of malignancy, 6 month follow up was recommended Scheduled for 10/04/2023 per her report Assessment & Plan (04/11/2023 4:34 PM EDT): Pt had a Mammogram 07/2022 that showed a complex-appearing cyst, deep upper outer aspect of the left breast, for which 6 month follow-up mammography and ultrasound was recommended. Repeat Mammogram 03/15/2023 showed a suspicious mass for which a breast biopsy is recommended Biopsy was done 03/29/2023 . No evidence of malignancy, 6 month follow up was recommended Assessment & Plan (09/01/2022 4:29 PM EST): Pt had a Mammogram 07/2022 that showed a complex-appearing cyst, deep upper outer aspect of the left breast, for which 6 month follow-up mammography and ultrasound was recommended. This will need to be done in 01/2023. Pt was also referred to [facility], seen 08/10/2022 Complex cyst of left ovary 09/01/2022 Assessment & Plan (01/11/2024 9:46 AM EDT): Pt had c/o pelvic pain, work up included a Pelvic U/S done in 12/10/2021 that showed: 2.6 x 2.2 x 1.7 cm complex left ovarian cyst, question representing an involuting or hemorrhagic cyst. Complex left ovarian cyst is seen on May [address] and previous pelvic ultrasound July 2021 and it is uncertain whether this could represent the same cyst. Pt was referred to [employer] [employer] . Pt tells me she is going to schedule an appointment. She tells me she is seeing someone at [facility] Repeat Pelvic US 10/2023 showed:A small degenerating fundal fibroid is seen. The examination is otherwise unremarkable. Assessment & Plan (09/12/2023 11:02 AM EST): Pt had c/o pelvic pain, work up included a Pelvic U/S done in 12/10/2021 that showed: 2.6 x 2.2 x 1.7 cm complex left ovarian cyst, question representing an involuting or hemorrhagic cyst. Complex left ovarian cyst is seen on May [address] and previous pelvic ultrasound July 2021 and it is uncertain whether this could represent the same cyst. Pt was referred to [facility] . Pt tells me she is going to schedule an appointment. She tells me she is seeing someone at [facility] Will repeat Pelvic US Assessment & Plan (09/01/2022 10:51 AM EST): Pt had c/o pelvic pain, work up included a Pelvic U/S done in 12/10/2021 that showed: 2.6 x 2.2 x 1.7 cm complex left ovarian cyst, question representing an involuting or hemorrhagic cyst. Complex left ovarian cyst is seen on May [address] and previous pelvic ultrasound July 2021 and it is uncertain whether this could represent the same cyst. Pt was referred to [facility] Physical exam, routine 09/01/2022 Assessment & Plan (09/12/2023 10:52 AM EST): Physical exam today within normal limits Assessment & Plan (09/01/2022 4:29 PM EST): Within normal limits Cervical spondylosis 07/05/2021 Depressive disorder 01/31/2013 Assessment & Plan (09/17/2024 2:43 PM EST): Patient here for a follow up Denies any SI or thoughts She is on Wellbutrin SR 150 mg po daily Pt reports she is felling better Pt has a Hx of panic attacks Pt is not amenable to counseling In the past she used to follow at [facility] (Paroxetine 20 mg po daily was stopped due to headaches Effexor XR to 150 mg po daily was stopped due to sedation) She was discharged from the agency she was going to due to no shows. In the past she was on Wellbutrin SR 100 mg po daily, with good results and Vistaril 25 mg po q 8 hrs for anxiety. Assessment & Plan (03/05/2024 1:10 PM EDT): Patient here for a follow up Recently lost her partner, very depressed as a result Denies any SI or thoughts, cries easily Last visit I started her on Wellbutrin SR 150 mg po daily Pt reports she is felling better Pt has a Hx of panic attacks Pt is not amenable to counseling In the past she used to follow at [facility] (Paroxetine 20 mg po daily was stopped due to headaches Effexor XR to 150 mg po daily was stopped due to sedation) She was discharged from the agency she was going to due to no shows. In the past she was on Wellbutrin SR 100 mg po daily, with good results and Vistaril 25 mg po q 8 hrs for anxiety. Assessment & Plan (01/11/2024 10:13 AM EDT): Patient here for a follow up Recently lost her prtner, very depressed as a result Denies any SI or thoughts, cries easily Pt has a Hx of panic attacks Pt is not amenable to counseling In the past she used to follow at [facility] (Paroxetine 20 mg po daily was stopped due to headaches Effexor XR to 150 mg po daily was stopped due to sedation) She was discharged from the agency she was going to due to no shows. In the past she was on Wellbutrin SR 100 mg po daily, with good results and Vistaril 25 mg po q 8 hrs for anxiety Today she is agreeable to restart Wellbutrin, I asked her to come back and see me in 6 weeks. Migraine 01/31/2013 Assessment & Plan (01/11/2024 9:44 AM EDT): Pt here for a follow up, previously seen at [facility] treated with Sumatriptan with good results Last visit she was referred back to neurology, appointment was scheduled for 09/2023 Of note she has a well known Hx of resistant migraines on average 4 episodes a month. Pt has been intolerant to numerous medications (please see Neurologist Note from 03/10/2015 ). The last time she was seen by Neurology he recommended the use of Imitrex 50 mg and if a touch of nausea could use the Imitrex 4mg injections instead. He mentioned that both of these treatments could be repeated after 1 hour if need be. Of note she had a CT of brain on 12/18/2015 that aside from sinusitis was otherwise negative. Pt used to follow with Dr Juarez who had been treating her with Topamax to 50mg po BID Pt is not taking it because she says it does not help and makes my stomach upset Pt was scheduled with Dr juarez but she no showed x 2. Here stating she did not go because the lack of site acquisition manager. Pt was seen by a different neurologist at [facility] who mentioned pt had compliance issues. recommended Sumatriptan and Amitriptyline and f/u last seen 10/2013 Assessment & Plan (09/12/2023 10:58 AM EST): Recently seen at [facility] treated with Sumatriptan with good results Will refer back to neurology Of note she has a well known Hx of resistant migraines on average 4 episodes a month. Pt has been intolerant to numerous medications (please see Neurologist Note from 03/10/2015 ). The last time she was seen by Neurology he recommended the use of Imitrex 50 mg and if a touch of nausea could use the Imitrex 4mg injections instead. He mentioned that both of these treatments could be repeated after 1 hour if need be. Of note she had a CT of brain on 12/18/2015 that aside from sinusitis was otherwise negative. Pt used to follow with Dr Juarez who had been treating her with Topamax to 50mg po BID Pt is not taking it because she says it does not help and makes my stomach upset Pt was scheduled with Dr juarez but she no showed x 2. Here stating she did not go because the lack of site acquisition manager. Pt was seen by a different neurologist at [facility] who mentioned pt had compliance issues. recommended Sumatriptan and Amitriptyline and f/u last seen 10/2013 Posttraumatic stress disorder 01/31/2013 Encounters Date Type Department Care Team Description 09/23/2024 9:20 AM EST Office Visit [facility] [address] [address] Marcela Hurd MD Cough, unspecified type (Primary Dx); Mild intermittent reactive airway disease with acute exacerbation; Primary hypertension; Urinary frequency 09/17/2024 2:30 PM EST Office Visit [address] [address] Gilmer Alvarez MD Breast pain, left (Primary Dx); Cough, unspecified type; Complex cyst of breast; Depressive disorder; Neck pain on left side; Acute pain of left shoulder; Primary hypertension 09/17/2024 Orders Only [address] [address] Gilmer Alvarez MD 09/17/[address] [address] Gilmer Alvarez MD 09/17/2024 Travel 09/05/[address] [address] Gilmer Alvarez MD Chart Prep 09/05/2024 Patient Outreach [address] [address] Gilmer Alvarez MD Pre-visit Planning (SDOH Screening negative and Tobacco screening negative) 09/02/2024 9:30 AM EST Office Visit [facility] [address] [place] [id number] Tata Madrid, OD Presbyopia of both eyes (Primary Dx) 09/02/2024 Travel 08/16/2024 11:00 AM EST Office Visit [facility] [address] [place] [address] Tata Madrid, OD Subconjunctival hemorrhage of left eye (Primary Dx) 08/16/2024 Travel 08/15/2024 11:40 AM EST Office Visit [facility] [address] [address] Leandra Lyon MD Subconjunctival hemorrhage of left eye (Primary Dx); Primary hypertension 08/05/2024 10:00 AM EST Office Visit [facility] [address] [place] [address] Rehana Arceo MD Tinea corporis (Primary Dx) 08/02/2024 9:40 AM EST Office Visit [facility] [address] [place] [address] Gay Watts, SUSTAINABILITY COACH Right ear pain (Primary Dx); Decreased hearing of right ear 08/01/2024 Telephone [facility] [address], [place] [phone] Gilmer Alvarez MD Nurse Triage from Last 3 Months Immunizations Name Administration Dates Next Due Hep B, adult 02/18/2009,08/26/2008,07/10/2008 Influenza injectable quadriv alent preservative free 06/23/2021 Tdap 06/23/2021 Social History Tobacco Use Types Packs/Day Years Used Date Smoking Tobacco: Never Passive Smoke Exposure: Never Smokeless Tobacco: Never Tobacco Cessation:Counseling Given: Not Answered Depression Answer Date Recorded Patient Health Questionnaire-9 [...] Orientation Straight 07/11/2022 10 :16 AM EDT Last Filed Vital Signs Vital Sign Reading Time Taken Comments Blood Pressure 146/85 09/23/2024 9:41 AM EST Pulse 79 09/23/2024 9:41 AM EST Temperature 36.8 ??C (98.2 ??F) 09/23/2024 9:41 AM ES T Respiratory Rate 17 09/23/2024 9:41 AM EST Oxygen Saturation 97% 09/23/2024 9:41 AM EST Inhaled Oxygen Concentration - - Weight 73 kg (161 lb) 09/23/2024 9:41 AM EST Height 154.9 cm (5' 1 ) 09/23/2024 9:41 AM EST Body Mass Index 30.42 09/23/2024 9:41 AM EST Plan of Treatment Upcoming Encounters Date Type Department Care Team (Late st Contact Info) Description 11/19/2024 11:15 AM EDT Office Visit [facility] [address], [place] [phone] Gilmer Alvarez MD [address] [place] [address] Health Maintenance Due Date Last Done Comments CT Colonography 1975 Colonoscopy 1975 Colorectal Cancer Screening 1975 FIT DNA/Cologuard 1975 FIT 1975 FOBT 1975 Sigmoidoscopy 1975 Pneumococcal Vaccine: Pediatrics (0 to 5 Years) and At-Risk Patients (6 to 64 Years) (1 of 2 - PCV) 12/04/1981 Family Planning (PISQ) 12/04/1990 Mammogram 01/12/2024 01/11/2023, 07/12, 07/22/2022, Additional history exists COVID-19 Vaccine ( season) 2024 09/17/2021, 02/23/2021, 01/26/2021 Influenza Vaccine (#1) 2024 06/23/2021 SDOH Screening 09/05/2025 09/05/2024 Alcohol/Substance Use Screening 09/17/2025 09/17/2024 Depression Screening 09/17/2025 09/17/2024, 09/17/19 Tobacco Screening 09/23/2025 09/23/2024 Zoster Vaccines (1 of 2) 12/04/2025 Cervical Cancer Screening 06/23/2026 HPV/Cotest 06/23/2026 06/23/2021 Pap Smear 06/23/2026 06/23/2021 Lipid Panel 09/16/2028 09/16/2023, 12/01/2021 DTaP/Tdap/Td Vaccines (2 - Td or Tdap) 06/23/2031 06/23/2021 RSV Patients and Patients Aged 60 years or older (1 - 1-dose 75+ series) 12/04/2050 Hepatitis B Vaccines Completed 02/18/2009, 08/26/2008, 07/10/2008 HIV Screening Completed 09/02/2022 Hepatitis C Screening Completed 09/02/2022, 022 HIB Vaccines Aged Out No longer eligi [...] patient's age to complete this topic Meningococcal Vaccine Aged Out No anibal lizzeth eligible based on patient's age to complete this topic RSV under 20 months Aged Out No longe r eligible based on patient's age to complete this topic Rotavirus Vaccines Aged Out No longer eligible based on patient's age to complete this topic Procedures Procedure Name Priority Date/Time Associated Diagnosis Comments POCT URINALYSIS DIPSTICK Routine 09/23/2024 10:14 AM EST Cough, unspecified type POCT INFLUENZA B (ID NOW RAPID MOLECULAR) Routine 09/23/2024 10:14 AM EST Cough, unspecified type POCT INFLUENZA A (ID NOW RAPID MOLECULAR) Routine 09/23/2024 10:14 AM EST Cough, unspecified type POCT COVID-19 AG BARBOSA ID NOW Routine 09/23/2024 10:14 AM EST Cough, unspecified type CULTURE, URINE, ROUTINE Routine 09/23/2024 12:00 AM EST Urinary frequency XR CERVICAL SPINE 3V Routine 09/17/2024 3:17 PM EST XR SHOULDER 2+ VIEWS LEFT Routine 09/17/2024 3:15 PM EST Acute pain of left shoulder POCT INFLUENZA A (ID NOW RAPID MOLECULAR) Routine 09/17/2024 2:44 PM EST Cough, unspecified type POCT INFLUENZA B (ID NOW RAPID MOLECULAR) Routine 09/17/2024 2:44 PM EST Cough, unspecified type POCT RAPID COVID ANTIGEN Routine 09/17/2024 2:37 PM EST Cough, unspecified type LIPID PANEL WITH REFLEX TO DIRECT LDL Routine 09/16/2023 8:58 AM EST Physical exam, routine HM MAMMOGRAPHY Routine 01/11/2023 11:46 AM EDT HEPATITIS C AB W/REFL TO HCV RNA, QN, PCR Routine 09/02/2022 9:37 AM EST Physical exam, routine HIV 1/2 ANTIGEN/ANTIBODY, FOURTH GENERATION W/RFL Routine 09/02/2022 9:37 AM EST Physical exam, routine HPV MRNA E6/E7 Routine 06/23/2021 11:17 AM EDT THINPREP PAP Routine 06/23/2021 11:17 AM EDT from Last 3 Months or Most Recently Relevant to Health Maintenance Results * POCT Rapid Influenza B BARBOSA ID NOW (09/23/2024 10:14 AM EST) Only the most recent of2 resultswithin the time period is included. [facility] Influenza B Negative Negative, Indeterminate [facility] Swab 09/23/2024 10:1 4 AM EST us Marcela Hurd MD POINT OF CARE TEST ENTER/ED IT ORDERABLES Final Result Performing Organization Address City/[facility]/ZIP Co de Phone Number [facility] [address] [place] [phone] * POCT Rapid Influenza A BARBOSA ID NOW (09/23/2024 10:14 AM EST) Only the most recent of2 resultswithin the time period is included. [facility] Influenza A Negative Negative, Indeterminate [facility] Swab 09/23/2024 10:1 4 AM EST us Marcela Hurd MD POINT OF CARE TEST ENTER/ED IT ORDERABLES Final Result Performing Organization Address [facility] Phone Number [facility] [address] [place] [phone] * POCT Rapid Covid-19 BARBOSA ID NOW (09/23/2024 10:14 AM EST) [facility] Coronavirus Antigen PCR Negative Negative, Indeterminate, None Detected, Invalid, Specimen unsatisfactory for evaluation, Weakly Positive [facility] Swab 09/23/2024 10:1 4 AM EST us Marcela Hurd MD POINT OF CARE TEST ENTER/ED IT ORDERABLES Final Result Performing Organization Address [facility] Co de Phone Number [facility] [address] [place] [phone] * POCT Urinalysis (09/23/2024 10:14 AM EST) Color, UA Yellow Clarity, UA Clear Glucose, UA Negative Bilirubin, UA Negative Ketones, UA Negative Spec Grav, UA 1.025 Blood, UA Negative Negative, None Detected pH, UA 5.0 Protein, UA Negative Urobilinogen, UA 0.2 Leukocytes, UA Trace Negative, Rare, Trace Nitrite, UA Negative Negative, None Detected Urine 09/23/2024 10:1 4 AM EST us Marcela Hurd MD POINT OF CARE TEST ENTER/ED IT ORDERABLES Final Result * Culture, Urine, Routine (09/23/2024 12:00 AM EST) Urine Urine specimen obtained by clean catch procedure / Unknown 09/23/2024 09/23/2024 Comment:UACC Narrative [facility] - 09/24/2024 8:38 AM EST Urine Culture No growth. Specimen Source: Urine clean catch us Marcela Hurd MD LAB MICROBIOLOGY - GENERAL ORDERABLES Final Result [facility] [address] [place] [phone] * XR CERVICAL SPINE 3V (09/17/2024 3:17 PM EST) Anatomical Region Laterality Modality Abdomen Radiographic Rebecca ging 09/17/2024 3:17 PM EST Narrative 09/17/2024 4:24 PM EST ?[facility] ?[address] ?[place] [address] ?XRay Report ? Signed ? Patient: Webber,Purnima ?MR#: [id number] ? : 1975 ?Acct:[id number] ? Age/Sex: 48 / F ?ADM Date: 01/07/25 ? Loc: HO.HHCX ? Attending Dr: Gilmer Silverio MD ? Ordering Physician: Gilmer Silverio MD ?? Date of Service: 09/17/24 ?? Procedure(s): XR cervical spine 3V ?? Accession Number(s): [id number] ? cc: Gilmer Silverio MD ? EXAMINATION: Left shoulder and cervical spine. ? CLINICAL INDICATION: Neck pain and left shoulder pain. ? COMPARISON: Cervical spine 06/29/2021 ? TECHNIQUE: Cervical spine 3 views. Left shoulder 3 views. ? FINDINGS: ? Cervical spine: There is maintained cervical lordosis. The vertebral ?? heights and alignment is normal. There is mild loss of C5-6 disc height ?? with mild posterior spondylosis. Rest the disc heights are normal. The ?? craniovertebral junction and C1-C2 alignment is normal. There is no ?? visible acute fracture, dislocation or subluxation seen. The ?? prevertebral soft tissues are normal. ? Left shoulder: The glenohumeral and AC joint spaces maintain normal. No ?? acute fracture, dislocation or subluxation seen. The soft tissues are ?? normal. ? XR/XR cervical spine 3V ?? IMPRESSION: Unremarkable left shoulder exam. ? Degenerative disc changes C5-6 disc level with mild posterior ?? spondylosis. ? Electronically signed by: ??Stefano Noel MD ??09/17/2024 04:21 PM EST RP ? Dictated By: ?Stefano Noel MD ? Signed By: ?<Electronically signed by Stefano Noel MD in OV> ?09/17/24 1621 ? DD/ 1517 ? TD/TT: 09/17/24 1544 ? Cigarette Carton Sealer: MSM ? Procedure Note Gerald, Image - 09/17/[address] [address] XRay Report Signed Patient: Leonardo Webber#: [id number] : 1975Acct:[id number] Age/Sex: 48 / FADM Date: 09/17/24 Loc: HO.HHCX Attending Dr: Gilmer Silverio MD Ordering Physician: Gilmer Silverio MD Date of Service: 09/17/24 Procedure(s): XR cervical spine 3V Accession Number(s): [id number] cc: Gilmer Silverio MD EXAMINATION: Left shoulder and cervical spine. CLINICAL INDICATION: Neck pain and left shoulder pain. COMPARISON: Cervical spine 06/29/2021 TECHNIQUE: Cervical spine 3 views. Left shoulder 3 views. FINDINGS: Cervical spine: There is maintained cervical lordosis. The vertebral heights and alignment is normal. There is mild loss of C5-6 disc height with mild posterior spondylosis. Rest the disc heights are normal. The craniovertebral junction and C1-C2 alignment is normal. There is no visible acute fracture, dislocation or subluxation seen. The prevertebral soft tissues are normal. Left shoulder: The glenohumeral and AC joint spaces maintain normal. No acute fracture, dislocation or subluxation seen. The soft tissues are normal. XR/XR cervical spine 3V IMPRESSION: Unremarkable left shoulder exam. Degenerative disc changes C5-6 disc level with mild posterior spondylosis. Electronically signed by: Stefano Noel MD 09/17/2024 04:21 PM EST RP Dictated By: Stefano Noel MD Signed By: <Electronically signed by Stefano Noel MD in OV> 09/17/24 1621 DD/ 1517 TD/TT: 09/17/24 1544 Cigarette Carton Sealer: CHET us Gilmer Garcia MD IMG XR PROCEDURES Fin al Result * XR Shoulder 2+ Views Left (09/17/2024 3:15 PM EST) Anatomical Region Laterality Modality Upper Extremities, Shoulder Left Radi ographic Imaging 09/17/2024 3:15 PM EST Narrative 09/17/2024 4:24 PM EST ?[facility] ?[address] ?[place] [address] ?XRay Report ? Signed ? Patient: Webber,Purnima ?MR#: [id number] ? : 1975 ?Acct:[id number] ? Age/Sex: 48 / F ?ADM Date: 01/07/25 ? Loc: HO.HHCX ? Attending Dr: Gilmer Silverio MD ? Ordering Physician: Gilmer Silverio MD ?? Date of Service: 09/17/24 ?? Procedure(s): XR shoulder LT min 2V ?? Accession Number(s): [id number] ? cc: Gilmer Silverio MD ? EXAMINATION: Left shoulder and cervical spine. ? CLINICAL INDICATION: Neck pain and left shoulder pain. ? COMPARISON: Cervical spine 06/29/2021 ? TECHNIQUE: Cervical spine 3 views. Left shoulder 3 views. ? FINDINGS: ? Cervical spine: There is maintained cervical lordosis. The vertebral ?? heights and alignment is normal. There is mild loss of C5-6 disc height ?? with mild posterior spondylosis. Rest the disc heights are normal. The ?? craniovertebral junction and C1-C2 alignment is normal. There is no ?? visible acute fracture, dislocation or subluxation seen. The ?? prevertebral soft tissues are normal. ? Left shoulder: The glenohumeral and AC joint spaces maintain normal. No ?? acute fracture, dislocation or subluxation seen. The soft tissues are ?? normal. ? XR/XR shoulder LT min 2V ?? IMPRESSION: Unremarkable left shoulder exam. ? Degenerative disc changes C5-6 disc level with mild posterior ?? spondylosis. ? Electronically signed by: ??Stefano Noel MD ??09/17/2024 04:21 PM EST RP ? Dictated By: ?Stefano Noel MD ? Signed By: ?<Electronically signed by Stefano Noel MD in OV> ?09/17/24 1621 ? DD/ 1515 ? TD/TT: 09/17/24 1544 ? Cigarette Carton Sealer: MSM ? Procedure Note Gerald, Byron - 09/17/[address] [address] XRay Report Signed Patient: Purnima WebberMR#: [id number] : 1975Acct:[id number] Age/Sex: 48 / FADM Date: 09/17/24 Loc: HO.HHCX Attending Dr: Gilmer Silverio MD Ordering Physician: Gilmer Silverio MD Date of Service: 09/17/24 Procedure(s): XR shoulder LT min 2V Accession Number(s): [id number] cc: Gilmer Silverio MD EXAMINATION: Left shoulder and cervical spine. CLINICAL INDICATION: Neck pain and left shoulder pain. COMPARISON: Cervical spine 06/29/2021 TECHNIQUE: Cervical spine 3 views. Left shoulder 3 views. FINDINGS: Cervical spine: There is maintained cervical lordosis. The vertebral heights and alignment is normal. There is mild loss of C5-6 disc height with mild posterior spondylosis. Rest the disc heights are normal. The craniovertebral junction and C1-C2 alignment is normal. There is no visible acute fracture, dislocation or subluxation seen. The prevertebral soft tissues are normal. Left shoulder: The glenohumeral and AC joint spaces maintain normal. No acute fracture, dislocation or subluxation seen. The soft tissues are normal. XR/XR shoulder LT min 2V IMPRESSION: Unremarkable left shoulder exam. Degenerative disc changes C5-6 disc level with mild posterior spondylosis. Electronically signed by: Stefano Noel MD 09/17/2024 04:21 PM EST Dictated By: Stefano Noel MD Signed By: <Electronically signed by Stefano Noel MD in OV> 09/17/24 1621 DD/ 1515 TD/TT: 09/17/24 1544 Cigarette Carton Sealer: CHET Gilmer Garcia MD IMG XR PROCEDURES Fin al Result * POCT Rapid Covid-19 BinaxNOW (09/17/2024 2:37 PM EST) [facility] Rapid COVID Ag Negative QC Media Lot # [id number] Lot# Expiration Date [id number] Swab 09/17/2024 2:37 PM EST Gilmer Garcia MD POINT OF CARE TEST EN TER/EDIT ORDERABLES Final Result * (ABNORMAL) Lipid Panel with Reflex to Direct LDL (09/16/2023 8:58 AM EST) Triglycerides 69 <150 mg/dL [facility] Comment:Desirable Triglyceri de: less than 150 mg/dLBorderline High Triglyceride 150-199 mg/dLHigh Triglyceride: 200-499 mg/dLVery High Triglyceride: greater than or equal to 5OO mg/dL Cholesterol 196 <200 mg/dL [facility] Comment:Desirable Cholestero l: less than 200 mg/dLBorderline High Cholesterol: 200-239 mg/dLHigh Cholesterol: greater than 239 mg/dL LDL Cholesterol Calculated 121(H) <100 mg/dL [facility] Comment:Desirable LDL: less than 100 mg/dLNear Optimal/Above Optimal LDL: 110- 129 mg/dLBorderline High LDL: 130-159 mg/dLHigh LDL: 160-189 mg/dLVery High LDL: greater than or equal to 190 mg/dL HDL Cholesterol 62 >40 mg/dL [facility] Comment:Desirable HDL: great er than 40 mg/dL Note: This HDL assay may give artificially low results in patients with liver disease. Blood 09/16/2023 8:58 AM EST 09/16/2023 8:58 AM EST Gilmer Garcia MD LAB BLOOD ORDERABLES Final Result [facility] [address] [place] [phone] * Mammography (01/11/2023 11:46 AM EDT) Mammogram Birads-1 Anatomical Region Laterality Modality Other Historical Provider HEALTH MAINTENANCE Final Result * Hepatitis C Antibody with Reflex to HCV, RNA, Quantitative, Real-Time PCR (09/02/2022 9:37 AM EST) Hepatitis C Antibody NON-REACT ADELINE NON-REACT ADELINE [facility] [place] [employer] Index 0.06 <1.00 [facility] [place] [facility] Comment: HCV antibody was non-reactive. There is no laboratory evidence of HCV infection. In most cases, no further action is required. However, if recent HCV exposure is suspected, a test for HCV RNA (test code 49817) is suggested. For additional information please refer to http://ACS Global.OnDeck/faq/USC13y2 (This link is being provided for informational/ educational purposes only.) Blood Venous blood specimen / Unknown 09/02/2022 9:37 AM EST 09/02/2022 9:38 AM EST Narrative [facility] - 09/04/2022 8:57 AM EST FASTING:NO FASTING: NO Gilmer Garcia MD LAB BLOOD ORDERABLES Final Result [facility] [address] [place] [address], [facility], [place] [address] [facility] [place] [employer] [address] [facility], ([address]) [place] [address] * HIV-1/2 Antigen and Antibodies, Fourth Generation, with Reflexes (09/02/2022 9:37 AM EST) [facility] HIV Antigen/Antibody, 4th Generation NON-REAC TIVE NON-REAC TIVE [facility] [place] [employer] Comment: HIV-1 antigen and HIV-1/HIV-2 antibodies were not detected. There is no laboratory evidence of HIV infection. PLEASE NOTE: This information has been disclosed to you from records whose confidentiality may be protected by state law. ??If your state requires such protection, then the state law prohibits you from making any further disclosure of the information without the specific written consent of the person to whom it pertains, or as otherwise permitted by law. A general authorization for the release of medical or other information is NOT sufficient for this purpose. ?? For additional information please refer to http://ACS Global.OnDeck/faq/FXX320 (This link is being provided for informational/ educational purposes only.) The performance of this assay has not been clinically validated in patients less than 2 years old. Blood Venous blood specimen / Unknown 09/02/2022 9:37 AM EST 09/02/2022 9:38 AM EST Narrative [facility] - 09/04/2022 8:57 AM EST FASTING:NO FASTING: NO us Gilmer Garcia MD LAB BLOOD ORDERABLES Final Result [address], [facility], [place] [address] [facility] [address] [facility], ([address]) [place] [address] * THINPREP PAP (06/23/2021 11:17 AM EDT) Clinical Information: None given [facility] COMMENT SEE COMMENT [facility] Comment: EXPLANATORY NOTE: ? The Pap is a screening test for cervical cancer. It is ?? not a diagnostic test and is subject to false negative ?? and false positive results. It is most reliable when a ?? satisfactory sample, regularly obtained, is submitted ?? with relevant clinical findings and history, and when ?? the Pap result is evaluated along with historic and ?? current clinical information. ?? Airframe And Powerplant Technician : SEE COMMENT [facility] Comment: HJP, CT(ASCP) CT screening location: [address] ??[id number] Interpretation/R esult: Negative for intraepithelial lesion or malignancy. [facility] LMP: NONE GIVEN [facility] Prev. BX: NONE GIVEN [facility] Prev. PAP: NONE GIVEN [facility] SOURCE: None given [facility] Statement Of Adequacy: SEE COMMENT [facility] Comment: Satisfactory for evaluation. Endocervical/transformation zone component absent. Age and/or menstrual status not provided 06/23/2021 11:1 7 AM EDT us Shadia Siddiqui CNM LAB PATHOLOGY ORDERABLES Final Result [facility] [address] * HPV mRNA E6/E7 (06/23/2021 11:17 AM EDT) HPV nRNA E6/E7 Not Detected Not Detected [facility] Comment: Methodology: Fixed Wing Aircraft Crew Chief-Mediated Amplification This assay detects E6/E7 viral messenger RNA (mRNA) from 14 high-risk HPV types (16,18,31,33,35,39,45,51,52,56,58,59,66,68). ? The analytical performance characteristics of this assay have been determined by [facility]. The modifications have not been cleared or approved by the FDA. This assay has been validated pursuant to the CLIA regulations and is used for clinical purposes. ?? For additional information, please refer to http://education.OnDeck/faq/WUG186d4 (This link if provided for information/ educational purposes only.) 06/23/2021 11:1 7 AM EDT Shadia ALEXANDRE LAB BLOOD ORDERABLES Makayla reina Result [facility] [address] from Last 3 Months or Most Recently Relevant to Health Maintenance Insurance [facility] C3 Care Teams Stain Applicator Relationship Specialty Start Date End Date Gilmer Alvarez MD [address] [place] [phone] PCP - General Internal Medicine 06/18/14
--- OUTSIDE RECORDS SUMMARY | 2024-10-08 05:59 | XMS_ITS | Encounter Summary ---
Author Organization [facility] Address [address] [facility] 7[address] [place] [address] Care Team Providers Care Grants Director Name Role Phone Gilmer Alvarez MD Primary Care Provide r Reason for Visit * Reason Comments UTI Cough Encounter Details Date Type Department Care Team ([facility] Contact Info) Description 09/23/2024 9:20 AM EST Office Visit [facility] [address] [place] [address] Marcela Hurd MD [address] [place] [address] Cough, unspecified type (Primary Dx); Mild intermittent reactive airway disease with acute exacerbation; Primary hypertension; Urinary frequency Social History Tobacco Use Types Packs/Day Years [...] AM EDT documented as of this encounter Last Filed Vital Signs Vital Sign Reading [...] Mass Index 30.42 09/23/2024 9:41 AM EST documented in this encounter Progress Notes * Marcela Hurd MD - 09/23/2024 9:20 AM EST Subjective Patient ID: Purnima Webber is a 48 y.o. female who presents for UTI and Cough. HPI H/o right anterior lower rib cage x 7 days and exacerbated by the cough. Prescribed Guaifenesin. Treatment completed but pt still has the cough. No fever. The cough also causes urinary incontinence. Also c/o worsening cough since cleaning her bathroom w/ Clorox about a week ago. Also c/o urinary frequency x the last week as well. Patient Active Problem List Diagnosis Cervical spondylosis Depressive disorder Migraine Posttraumatic stress disorder Breast mass, left Complex cyst of left ovary Physical exam, routine Varicose vein of leg Complex cyst of breast Adjustment disorder with anxiety Breast pain, left Subconjunctival hemorrhage of left eye Primary hypertension Neck pain on left side Acute pain of left shoulder Cough Current Outpatient Medications on File Prior to Visit Medication Sig Dispense Refill amLODIPine (Norvasc) 2.5 MG tablet Take 1 tablet (2.5 mg) by mouth Once per day. 30 tablet 3 Blood Pressure kit Use once a week 1 kit 0 buPROPion XL (Wellbutrin XL) 150 MG 24 hr tablet Take 1 tablet (150 mg) by mouth Once per day. Do not crush, chew, or split. 30 tablet 6 cetirizine (ZyrTEC) 10 MG tablet Take 1 tablet (10 mg) by mouth Once per day. 30 tablet 5 clotrimazole (Lotrimin) 1 % cream Apply to affected area of skin twice a day until resolved, between 1-3 weeks. 60 g 1 FeroSul 325 (65 Fe) MG tablet TAKE 1 TABLET BY MOUTH EVERY OTHER DAY 90 tablet 0 fluticasone (Flonase) 50 MCG/ACT nasal spray Administer 1-2 sprays into each nostril Once per day. Shake gently. Before first use, prime pump. After use, clean tip and replace cap. 16 g 2 hydrOXYzine pamoate (Vistaril) 25 MG capsule TAKE 1 CAPSULE BY MOUTH EVERY 8 HOURS NEEDED FOR ANXIETY 90 capsule 1 ibuprofen 800 MG tablet TAKE 1 TABLET BY MOUTH THREE TIMES DAILY NEEDED FOR PAIN omeprazole (PriLOSEC) [address] capsule TAKE 1 CAPSULE BY MOUTH EVERY DAY 30 MINUTES TO 1 HOUR BEFORE A MEAL 90 capsule 0 ondansetron ODT (Zofran-ODT) 4 MG disintegrating tablet DISSOLVE 1 TABLET BY MOUTH EVERY DAY NEEDED FOR NAUSEA 20 tablet 0 polyethylene glycol, PEG, 3350 (Glycolax) 17 GM/SCOOP powder TAKE 17 GM MIXED IN 8 OUNCES OF WATER ONCE DAILY rizatriptan (Maxalt) 10 MG tablet TAKE 1 TABLET BY MOUTH EVERY DAY AT ONSET OF MIGRAINE, MAY REPEATIN 4 HOURS NEEDED, DO NOT EXCEED 2 DOSES / 24 HOURS SUMAtriptan (Imitrex) 50 MG tablet TAKE 1 TABLET BY MOUTH AT ONSET OF MIGRAINE. MAY REPEAT ONCE AFTER 2 HOURS IF NEEDED DO NOT EXCEED 4 TABLETS IN 24 HOURS 6 tablet 0 topiramate 50 MG tablet Take 1 tablet by mouth at bedtime. [DISCONTINUED] guaiFENesin (Robitussin) 100 MG/5ML liquid Take 10 mL (200 mg) by mouth if needed inthe morning, at noon, and at bedtime for cough for up to 10 days. 120 mL 0 [DISCONTINUED] predniSONE (Deltasone) 20 MG tablet 2 tabs po daily for 5 days 10 tablet 0 No current facility-administered medications on file prior to visit. Review of Systems Constitutional: Negative for appetite change, chills and diaphoresis. Respiratory: Positive for cough and chest tightness. Cardiovascular: Negative for leg swelling. Gastrointestinal: Negative for anal bleeding and blood in stool. Musculoskeletal: Positive for myalgias. Skin: Negative for rash. Objective BP (!) 146/85 (BP Location: Left arm, Patient Position: Sitting, BP Cuff Size: Adult) Pulse 79 Temp 98.2 ??F (36.8 ??C) (Oral) Resp 17 Ht 5' 1 (1.549 m) Wt 161 lb (73 kg) SpO2 97% BMI 30.42 kg/m?? Physical Exam Constitutional: General: She is not in acute distress. Appearance: Normal appearance. She is not ill-appearing, toxic-appearing or diaphoretic. Cardiovascular: Rate and Rhythm: Normal rate. Pulmonary: Effort: Pulmonary effort is normal. Breath sounds: Decreased air movement present. Abdominal: Palpations: Abdomen is soft. Neurological: Mental Status: She is alert. Assessment/Plan Diagnoses and all orders for this visit: Cough, unspecified type - POCT Rapid Covid-19 BARBOSA ID NOW - POCT Rapid Influenza A BARBOSA ID NOW - POCT Rapid Influenza B BARBOSA ID NOW - POCT Urinalysis - predniSONE (Deltasone) 20 MG tablet; 2 tabs po daily for 5 days - benzonatate (Tessalon Perles) 100 MG capsule; Take 1 capsule (100 mg) by mouth if needed in the morning, at noon, and at bedtime for cough for up to 7 days. Do not crush or chew. - acetaminophen (Tylenol Extra Strength) 500 MG tablet; Take 1 tablet (500 mg) by mouth every 6 (six) hours if needed for mild pain for up to 10 days. Mild intermittent reactive airway disease with acute exacerbation As noted above. Primary hypertension Comments: Uncontrolled Did not take her medication today DASH diet Compliance to medication reinforce. Urinary frequency Comments: Push fluids Urine culture ordered. We will treat accordingly. Orders: - Culture, Urine, Routine; Future documented in this encounter Plan of Treatment Upcoming Encounters Date Type Department Care Team (Late st Contact Info) Description 11/19/2024 11:15 AM EDT Office Visit [facility] [address] [place], [place] [phone] Gilmer Alvarez MD [address] [place], [place] [phone] documented as of this encounter Procedures Procedure Name Priority Date/Time Associated Diagnosis Comments POCT INFLUENZA B (ID NOW RAPID MOLECULAR) Routine 09/23/2024 10:14 AM EST Cough, unspecified type POCT INFLUENZA A (ID NOW RAPID MOLECULAR) Routine 09/23/2024 10:14 AM EST Cough, unspecified type POCT COVID-19 AG BARBOSA ID NOW Routine 09/23/2024 10:14 AM EST Cough, unspecified type POCT URINALYSIS DIPSTICK Routine 09/23/2024 10:14 AM EST Cough, unspecified type CULTURE, URINE, ROUTINE Routine 09/23/2024 12:00 AM EST Urinary frequency documented in this encounter Results * POCT Urinalysis (09/23/2024 10:14 AM EST) [...] TEST ENTER/ED IT ORDERABLES Final Result * POCT Rapid Influenza B BARBOSA ID NOW (09/23/2024 10:14 AM EST) Influenza B Negative Negative, Indeterminate [facility] Swab 09/23/2024 10:1 4 AM EST us Marcela Hurd MD POINT OF CARE TEST ENTER/ED IT ORDERABLES Final Result Performing Organization Address [facility] Co de Phone Number [facility] [address] [place] [phone] * POCT Rapid Influenza A BARBOSA ID NOW (09/23/2024 10:14 AM EST) Influenza A Negative Negative, Indeterminate [facility] Swab 09/23/2024 10:1 4 AM EST us Marcela Hurd MD POINT OF CARE TEST ENTER/ED IT ORDERABLES Final Result Performing Organization Address [facility] Co de Phone Number [facility] [address] [place] [phone] * POCT Rapid Covid-19 BARBOSA ID NOW (09/23/2024 10:14 AM EST) Coronavirus Antigen PCR Negative Negative, Indeterminate, None Detected, Invalid, Specimen unsatisfactory for evaluation, Weakly Positive [facility] Swab 09/23/2024 10:1 4 AM EST us Marcela Hurd MD POINT OF CARE TEST ENTER/ED IT ORDERABLES Final Result Performing Organization Address [facility] Co de Phone Number [facility] [address] [place] [phone] * Culture, Urine, Routine (09/23/2024 12:00 AM EST) Urine Urine specimen obtained by clean catch procedure / Unknown 09/23/2024 09/23/2024 Comment:UACC Narrative [facility] - 09/24/2024 8:38 AM EST Urine Culture No growth. Specimen Source: Urine clean catch us Marcela Hurd MD LAB MICROBIOLOGY - GENERAL ORDERABLES Final Result Performing Organization Address City/State/[facility] Co de Phone Number [facility] [address] [place] [address] [phone] documented in this encounter Visit Diagnoses Diagnosis Cough, unspecified type- Primary Mild intermittent reactive airway disease with acute exacerbation Primary hypertension Unspecified essential hypertension Urinary frequency documented in this encounter Additional Health Concerns Assessment Noted Time PHQ-9 Depression Total Score: 0 09/17/19 25 2:35 PM EST documented as of this encounter Care Teams Grants Director Relationship Specialty Start Date End Date Gilmer Alvarez MD [address] [place] [phone] PCP - General Internal Medicine 06/18/14 documented as of this encounter
--- OUTSIDE RECORDS SUMMARY | 2024-10-08 05:59 | XMS_ITS | Encounter Summary ---
Author Organization [employer] Address [address] [facility] [address] [place] [address] Care Team Providers Care Service Agent Name Role Phone Gilmer Alvarez MD Primary Care Provide r Reason for Referral * Consultation (Routine) - Closed Specialty Diagnoses / Procedures Referred By Miguel Angel t Referred To Contact Physical Therapy Diagnoses Neck pain on left side Acute pain of left shoulder Gilmer Alvarez MD [address] [place] [address] Phone: tel: fax: [facility] [address] [place] [address] Phone: tel: fax: Referral ID Status Reason Start Date Expiration Date V isits Requested Visits Authorized [id number] Closed Specialty Services Required 09/17/2024 09/17/2025 20 20 * Neurology (Routine) - Authorized Specialty Diagnoses / Procedures Referred By Contac t Referred To Contact Diagnoses Neck pain on left side Acute pain of left shoulder Procedures Nerve conduction test Gilmer Alvarez MD [address] [place] [address] Phone: tel: fax: [facility] [address] [place] [address] Phone: tel: fax: Referral ID Status Reason Start Date Expiration Date V isits Requested Visits Authorized [id number] Authorized 09/17/2024 09/17/2025 1 1 Encounter Details Date Type Department Care Team (Late st Contact Info) Description 09/17/2024 2:30 PM EST Office Visit [facility] [address] [place] [address] Gilmer Alvarez MD [address] [place] [address] Breast pain, left (Primary Dx); Cough, unspecified type; Complex cyst of breast; Depressive disorder; Neck pain on left side; Acute pain of left shoulder; Primary hypertension Social History Tobacco Use Types Packs/Day Years [...] Sign Reading Time Taken Comments Blood Pressure 145/98 09/17/2024 2:34 PM EST Pulse 77 09/17/2024 2:34 PM EST Temperature 36.3 ??C (97.3 ??F) 09/17/2024 2:34 PM ES T Respiratory Rate 20 09/17/2024 2:34 PM EST Oxygen Saturation 98% 09/17/2024 2:34 PM EST Inhaled Oxygen Concentration - - Weight 72.9 kg (160 lb 12.8 oz) 09/17/2024 2:34 PM EST Height 154.9 cm (5' 1 ) 09/17/2024 2:34 PM EST Body Mass Index 30.38 09/17/2024 2:34 PM EST documented in this encounter Progress Notes * Gilmer Garcia MD - 09/17/2024 2:30 PM EST SUBJECTIVE Purnima Webber is a 48 y.o. female who presents for No chief complaint on file.. Depression Visit Type: follow-up Patient is not experiencing: shortness of breath. Cough This is a new problem. The current episode started in the past 7 days. The cough is Non-productive.Pertinent negatives include no chest pain, chills, fever, headaches, sore throat or shortness of breath. The symptoms are aggravated by dust. She has tried nothing for the symptoms. Review of Systems Constitutional: Negative for chills and fever. HENT: Negative for sore throat. Respiratory: Positive for cough. Negative for shortness of breath. Cardiovascular: Negative for chest pain. Gastrointestinal: Negative for abdominal pain. Neurological: Negative for headaches. Psychiatric/Behavioral: Positive for depression. No Known Allergies OBJECTIVE Vitals: 09/17/24 1434 BP: (!) 145/98 BP Location: Left arm Patient Position: Sitting BP Cuff Size: Adult Pulse: 77 Resp: 20 Temp: 97.3 ??F (36.3 ??C) TempSrc: Temporal SpO2: 98% Weight: 160 lb 12.8 oz (72.9 kg) Height: 5' 1 (1.549 m) Physical Exam Vitals reviewed. Constitutional: Appearance: Normal appearance. HENT: Head: Normocephalic and atraumatic. Right Ear: External ear normal. Left Ear: External ear normal. Nose: Nose normal. Mouth/Throat: Mouth: Mucous membranes are moist. Eyes: Conjunctiva/sclera: Conjunctivae normal. Cardiovascular: Rate and Rhythm: Normal rate and regular rhythm. Pulmonary: Effort: Pulmonary effort is normal. Breath sounds: Normal breath sounds and air entry. No wheezing, rhonchi or rales. Skin: General: Skin is warm. Neurological: Mental Status: She is alert. Mental status is at baseline. Assessment/Plan Problem List Items Addressed This Visit Cough Pt with mild non productive cough, lungs CTA B. Neg rapid flu and neg rapid covid tests Plan: Supportive measures, guaifenesin PRN. Ok to go back to work Relevant Medications guaiFENesin (Robitussin) 100 MG/5ML liquid Other Relevant Orders POCT Rapid Influenza B BARBOSA ID NOW (Completed) POCT Rapid Influenza A BARBOSA ID NOW (Completed) POCT Rapid Covid-19 BinaxNOW (Completed) Breast pain, left - Primary Pt had a Mammogram 07/2022 that showed [...] to the [facility] She was seen 04/03/2024 and reassured that there was no breast sources of her pain and it was likely referred pain Complex cyst of breast Pt had a Mammogram 07/2022 that showed [...] to the [facility] at [facility] She was seen 04/03/2024 and reassured that there was no breast sources of her pain and it was likely referred pain Depressive disorder Patient here for a follow up Denies any SI or thoughts She is on Wellbutrin SR 150 mg po daily Pt reports she is felling better Pt has a Hx of panic attacks Pt is not amenable to counseling In the past she used to follow at [facility] (Paroxetine 20 mg po daily was stopped due to headaches Effexor XR to 150 mg po daily was stopped due to sedation) She was discharged from the agency she was going to due to no shows. In the past she was on Wellbutrin SR 100 mg po daily, with good results and Vistaril 25 mg po q 8 hrs for anxiety. Neck pain on left side Pt with c/o left sided neck pain radiates to left shoulder and arm Exam: evidence of muscle spasm Plan: Plain films, PT eval NCS to rule out radiculopathy Relevant Orders Nerve conduction test XR Cervical Spine 2-3 Views Referral to Physical Therapy Acute pain of left shoulder Pt with c/o left sided neck pain radiates to left shoulder and arm Exam: evidence of muscle spasm Plan: Plain films, PT eval NCS to rule out radiculopathy Relevant Orders Nerve conduction test XR Shoulder 2+ Views Left Referral to Physical Therapy Primary hypertension Pt's blood pressure elevated recently started on Amlodipine 2.5mg daily 08/15/24. At [facility] Pt did not take it today Plan: BP monitor Follow up 8 weeks Relevant Medications Blood Pressure kit documented in this encounter Miscellaneous Notes * Assessment & Plan Note - Gilmer Garcia MD - 09/17/2024 3:04 PM EST Associated Problem(s): Cough Pt with mild non productive cough, lungs CTA B. Neg rapid flu and neg rapid covid tests Plan: Supportive measures, guaifenesin PRN. Ok to go back to work * Assessment & Plan Note - Gilmer Garcia MD - 09/17/2024 2:56 PM EST Associated Problem(s): Primary hypertension Pt's blood pressure elevated recently started on Amlodipine 2.5mg daily 08/15/24. At [facility] Pt did not take it today Plan: BP monitor Follow up 8 weeks * Assessment & Plan Note - Gilmer Garcia MD - 09/17/2024 2:54 PM EST Associated Problem(s): Acute pain of left shoulder Pt with c/o left sided neck pain radiates to left shoulder and arm Exam: evidence of muscle spasm Plan: Plain films, PT eval NCS to rule out radiculopathy * Assessment & Plan Note - Gilmer Garcia MD - 09/17/2024 2:54 PM EST Associated Problem(s): Neck pain on left side Pt with c/o left sided neck pain radiates to left shoulder and arm Exam: evidence of muscle spasm Plan: Plain films, PT eval NCS to rule out radiculopathy * Assessment & Plan Note - Gilmer Garcia MD - 09/17/2024 2:42 PM EST Associated Problem(s): Depressive disorder Patient here for a follow up Denies any SI or thoughts She is on Wellbutrin SR 150 mg po daily Pt reports she is felling better Pt has a Hx of panic attacks Pt is not amenable to counseling In the past she used to follow at [facility] (Paroxetine 20 mg po daily was stopped due to headaches Effexor XR to 150 mg po daily was stopped due to sedation) She was discharged from the agency she was going to due to no shows. In the past she was on Wellbutrin SR 100 mg po daily, with good results and Vistaril 25 mg po q 8 hrs for anxiety. * Assessment & Plan Note - Gilmer Garcia MD - 09/17/2024 2:42 PM EST Associated Problem(s): Complex cyst of breast Pt had a Mammogram 07/2022 that showed [...] to the [facility] at [facility] She was seen 04/03/2024 and reassured that there was no breast sources of her pain and it was likely referred pain * Assessment & Plan Note - Gilmer Garcia MD - 09/17/2024 2:41 PM EST Associated Problem(s): Breast pain, left Pt had a Mammogram 07/2022 that showed [...] to the [facility] and [facility] at [facility]. She was seen 04/03/2024 and reassured that there was no breast sources of her pain and it was likely referred pain documented in this encounter Plan of Treatment Upcoming Encounters Date Type Department Care Team (Late st Contact Info) Description 11/19/2024 11:15 AM EDT Office Visit [facility] [address] [place] [address] Gilmer Alvarez MD [address] [place] [address] Scheduled Orders Name Type Priority Associated Diagnoses Orde r Schedule Nerve conduction test Neurology Routine Neck pain on left side Acute pain of left shoulder Expected: 09/17/2024 (Approximate), Expires: 09/17/2025 XR Cervical Spine 2-3 Views Imaging Routine Neck pain on left side Ordered: 09/17/2024 Scheduled Referrals Name Type Priority Associated Diagnoses Orde r Schedule Referral to Physical Therapy Outpatient Referral Routine Neck pain on left side Acute pain of left shoulder Expected: 09/17/2024 (Approximate), Expires: 09/17/2025 documented as of this encounter Procedures Procedure Name Priority Date/Time Associated Diagnosis Comments XR SHOULDER 2+ VIEWS LEFT Routine 09/17/2024 3:15 PM EST Acute pain of left shoulder POCT INFLUENZA B (ID NOW RAPID MOLECULAR) Routine 09/17/2024 2:44 PM EST Cough, unspecified type POCT INFLUENZA A (ID NOW RAPID MOLECULAR) Routine 09/17/2024 2:44 PM EST Cough, unspecified type POCT RAPID COVID ANTIGEN Routine 09/17/2024 2:37 PM EST Cough, unspecified type documented in this encounter Results * XR Shoulder 2+ Views Left (09/17/2024 3:15 PM EST) Anatomical Region Laterality Modality Upper Extremities, Shoulder Left Radi ographic Imaging 09/17/2024 3:15 PM EST Narrative 09/17/2024 4:24 PM EST ?[facility] [place] [facility] ?[address] ?[place] [address] ?XRay Report ? Signed ? Patient: Webber,Purnima ?MR#: [id number] ? : 1975 ?Acct:[id number] ? Age/Sex: 48 / F ?ADM Date: 09/17/24 ? Loc: HO.HHCX ? Attending Dr: Gilmer Silverio MD ? Ordering Physician: Gilmer Silverio MD ?? Date of Service: 09/17/24 ?? Procedure(s): XR shoulder LT min 2V ?? Accession Number(s): [id number] ? cc: Gilmer Silverio MD ? EXAMINATION: [...] EST RP ? Dictated By: ?Stefano Noel S ? Signed By: ?<Electronically signed by Stefano S MD Sadie in OV> ?09/17/24 1621 ? DD/ 1515 ? TD/TT: 09/17/24 1544 ? Catering Barista: MSM ? Procedure Note Gerald, Byron - 09/17/2024 [facility] [address] [facility] [place] [address] XRay Report Signed Patient: Purnima WebberMR#: [id number] : 1975Acct:[id number] Age/Sex: 48 / FADM Date: 09/17/24 Loc: HO.HHCX Attending Dr: Gilmer Silverio MD Ordering Physician: Gilmer Silverio MD Date of Service: 09/17/24 Procedure(s): XR shoulder LT min 2V Accession Number(s): [id number] cc: Gilmer Silverio MD EXAMINATION: Left shoulder [...] 09/17/24 1621 DD/ 1515 TD/TT: 09/17/24 1544 Catering Barista: CHET us Gilmer Garcia MD IMG XR PROCEDURES Fin al Result * POCT Rapid Influenza A BARBOSA ID NOW (09/17/2024 2:44 PM EST) Influenza A Negative Negative, Indeterminate [facility] QC Media Lot # [id number] [facility] Lot# Expiration Date 3,026 [facility] Swab 09/17/2024 2:44 PM EST Gilmer Garcia MD POINT OF CARE TEST EN TER/EDIT ORDERABLES Final Result Performing Organization Address [facility] Co de Phone Number [facility] [address] [place] [phone] * POCT Rapid Influenza B BARBOSA ID NOW (09/17/2024 2:44 PM EST) Influenza B Negative Negative, Indeterminate [facility] QC Media Lot # [id number] [facility] Lot# Expiration Date [facility] Swab 09/17/2024 2:44 PM EST Gilmer Garcia MD POINT OF CARE TEST EN TER/EDIT ORDERABLES Final Result Performing Organization Address [facility] Co de Phone Number [facility] [address] [place] [phone] * POCT Rapid Covid-19 BinaxNOW (09/17/2024 2:37 PM EST) Rapid COVID Ag Negative QC Media Lot # [id number] Lot# Expiration Date Swab 09/17/2024 2:37 PM EST Result [facility] Gilmer Garcia MD POINT OF CARE TEST EN TER/EDIT ORDERABLES Final Result documented in this encounter Visit Diagnoses Diagnosis Breast pain, left- Primary Cough, unspecified type Complex cyst of breast Depressive disorder Depressive disorder, not elsewhere classified Neck pain on left side Acute pain of left shoulder Primary hypertension Unspecified essential hypertension documented in this encounter Additional Health Concerns Assessment Noted Time PHQ-9 Depression Total Score: 0 09/17/19 25 2:35 PM EST documented as of this encounter Care Teams Service Agent Relationship Specialty Start Date End Date Gilmer Alvarez MD [address] [place] [address] PCP - General Internal Medicine 06/18/14 documented as of this encounter
--- OUTSIDE RECORDS SUMMARY | 2024-10-08 05:59 | XMS_ITS | Encounter Summary ---
Author Organization [employer] [facility] Address [address] [place] [address] [address] [place] [address] Care Team Providers Care Ore Miner Name Role Phone Gilmer Alvarez MD Primary Care Provide r Encounter Details Date Type Department Care Team (Late st Contact Info) Description 10/26/2022 Orders Only [facility] [address] [place] [phone] Provider, MD Christo Social History Tobacco Use Types Packs/Day Years [...] Office Visit [facility] [address] [place] [phone] Gilmer Alvarez MD [address] [place] [phone] documented as of this encounter Visit Diagnoses Not on filedocumented in this encounter Care Teams Ore Miner Relationship Specialty Start Date End Date Gilmer Alvarez MD [address] [place] [phone] PCP - General Internal Medicine 06/18/14 documented as of this encounter
--- OUTSIDE RECORDS SUMMARY | 2024-10-08 05:59 | XMS_ITS | Encounter Summary ---
Author Organization [facility] Address [address] [place] [address] Care Team Providers Care Multi Disciplined Language Analyst Name Role Phone Gilmer Silverio MD Primary Care Provi kirsty Reason for Visit * Reason Comments Cough Shortness of Breath Asthma Encounter Details Date Type Department Care Team (Late st Contact Info) Description 09/25/2024 6:20 PM EST - 09/25/2024 10:38 PM EST [facility] Emergency [address] [place] [address] Yogi Carrillo, DO [address] [place] [address] Acute cough (Primary Dx) Discharge Disposition: Home or Self Care Social History Tobacco Use Types Packs/Day Years Used Date Smoking Tobacco: Never Smokeless Tobacco: Never Alcohol Use Standard Drinks/Week Comments Not Asked 0 (1 standard drink = 0.6 oz pur e alcohol) Sex and Gender Information Value Date Recorded Sex Assigned at Female 08/07/2024 10:56 AM EST Gender Identity Female 08/07/2024 10:56 AM EST Sexual Orientation Straight 08/07/2024 10 :56 AM EST Job Start Date Occupation Industry Not on file Not on file Not on file documented as of this encounter Last Filed [...] Mass Index 30.23 09/25/2024 6:07 PM EST documented in this encounter Functional Status Functional Status Response Date of Assess ment Are you deaf or do you have serious difficulty h earing? No 09/25/2024 Are you blind or do you have serious difficulty seeing, even when wearing glasses? No 09/25/2024 Do you have serious difficul ty walking or climbing stairs? No 09/25/2024 Do you have serious difficulty dressing or bathi ng? No 09/25/2024 Because of a physical, menta l, or emotional condition, do you have serious difficulty doing errands alone such as visiting the doctor? No 09/25/2024 Cognitive Status Response Date of Assessm ent Because of a physical, menta l, or emotional condition, do you have serious difficulty concentrating, remembering, or making decisions? (5 years old or older) No 09/25/2024 documented as of this encounter Discharge Instructions * Discharge Instructions* CONOR Mendez - 09/25/2024 10:28 PM EST Thank you for choosing [facility]'s Emergency Department for your care today. Thankfully your viral panel today was negative for COVID, influenza, or RSV. Your lung exam today improved significantly following administration of steroids, breathing treatments, and magnesium sulfate. At this time there is no indication for admission to the hospital or continued ED observation, and it is safe to discharge you home. Your chest x-ray shows no radiographic evidence of pneumonia, however your laboratory evaluation does show an elevated white blood cell count which can indicate an infection. Seeing as your symptoms have been ongoing for greater than 10 days, and your white blood cell count is elevated, we are treating you for suspected pneumonia with an antibiotic called doxyc ycline. We are also treating you with a 5-day burst of prednisone as your symptoms improved following steroids in the ED. Please take both the antibiotic and steroid as prescribed until finished. Please stay well hydrated and get plenty of rest. Please follow up with your primary care physician for re-evaluation, pulmonary function testing to evaluate for a diagnosis of asthma/COPD, as well as additional management of your symptoms, and continued preventative care. If you do not have a primary care physician, please call the [facility] at [phone] [facility] a new primary care physician. Please return to the emergency department if you develop a sudden severe change in your symptoms, afever over 100.4,, or severe or recurrent vomiting, or if you experience any other new or worseningsymptoms or concerns. * Attachments The following attachments cannot be sent through Care Everywhere. * Cough (Beninese) documented in this encounter Medications at Time of Discharge Medication Sig Dispensed Refills Start Date End Date predniSONE (DELTASONE) 20 mg tablet Take 3 tablets (60 mg total) by mouth 1 (one) time each day. 15 tablet 09/25/2024 doxycycline (MONODOX) 100 mg capsule Take 1 capsule (100 mg total) by mouth 2 (two) times a day for 7 days. Take with at least 8 ounces (large glass) of water, do not lie down for 30 minutes after 14 each 09/25/2024 10/02/2024 documented as of this encounter Ordered Prescriptions Prescription Sig Dispensed Refills Start Date End Da te predniSONE (DELTASONE) 20 mg tablet Take 3 tablets (60 mg total) by mouth 1 (one) time each day. 15 tablet 09/25/2024 doxycycline (MONODOX) 100 mg capsule Take 1 capsule (100 mg total) by mouth 2 (two) times a day for 7 days. Take with at least 8 ounces (large glass) of water, do not lie down for 30 minutes after 14 each 09/25/2024 10/02/2024 documented in this encounter Discharge Disposition Disposition Code Departure Means Destination Comment s Home or Self Care documented in this encounter Progress Notes * Yogi Carrillo, - 09/25/2024 5:31 PM EST Emergency Medicine Note Patient Name: Purnima Webber Initial Evaluation: 09/25/2024 : 1975 Patient's PCP: Gilmer Silverio MD Emergency Physician: Yogi Carrillo DO History of Present Illness Chief Complaint: Chief Complaint Patient presents with Cough Shortness of Breath Asthma HPI: This 48-year-old female presents emergency department from home with her adult boyfriend who is helping to interpret Moroccan and to provide some history. The patient reportedly has been having cough and wheezing and shortness of breath for approximately 1 week with nasal congestion. He has some chest tightness but no other chest discomfort or palpitations. No fevers, chills or sweats. She has had a cough with clear sputum. No abdominal pain or vomiting or diarrhea. No headache, neck pain or focal numbness or weakness. No urinary or other complaints. The patient does not smoke and doesnot believe she has a history of asthma. No other acute complaints. ROS: I have performed a ROS with the pertinent positives and negatives documented in the history ofpresent illness. Previous History Past Medical History: Diagnosis Date Asthma Migraines History reviewed. No pertinent surgical history. Social History Tobacco Use Smoking status: Never Smokeless tobacco: Never Vaping Use Vaping status: Never Used Substance Use Topics Drug use: Never No family history on file. has No Known Allergies. No current facility-administered medications on file prior to encounter. Current Outpatient Medications on File Prior to Encounter Medication Sig Dispense Refill diphenhydrAMINE (BENADRYL) 25 mg capsule Take 1 capsule (25 mg total) by mouth every 4 (four) hoursif needed for itching for up to 4 days. 16 capsule 0 Physical Exam ED Triage Vitals [09/25/24 1807] Temp Heart Rate Resp BP 36.7 ??C (98.1 ??F) (!) 114 26 (!) 151/95 SpO2 Temp Source Heart Rate Source Patient Position 97 % Oral -- -- BP Location FiO2 (%) -- -- General: Alert and oriented x 3, taking an albuterol treatment at the time of my evaluation, she isable to speak sentences, but has some increased respiratory effort. She is conversing and followingcommands appropriately with clear sensorium. HEENT: R[place] and moist mucosa Neck: Soft and supple Chest: Good air entry bilaterally, wheezing bilaterally positive increased respiratory effort Circulatory: Regular rhythm, mild tachycardia with her shortness of breath Abdomen: Soft, non-distended, Non-Tender Extremities: Warm and well-perfused Skin: Warm and dry Neuro: Alert and oriented x 3, no obvious gross acute focal deficits Results Labs Reviewed COMPLETE BLOOD COUNT - Abnormal Result Value WBC 18.7 (*) RBC 5.10 (*) Hemoglobin 13.4 Hematocrit 42.1 MCV 82.9 MCH 26.4 (*) MCHC 31.8 (*) RDW 15.7 (*) Platelets 427 (*) MPV 11.7 (*) NRBC 0.0 NRBC Absolute 0.00 COMPREHENSIVE METABOLIC PANEL - Abnormal Sodium 137 Potassium 3.7 Chloride 106 CO2 23 Anion Gap 8 Glucose 98 BUN 16 Creatinine 0.86 eGFR 83 BUN/Creatinine Ratio 18.6 Calcium 9.7 AST (SGOT) 52 (*) ALT (SGPT) 64 (*) Alkaline Phosphatase 99 Total Protein 8.4 (*) Albumin 4.3 Total Bilirubin 0.3 RESPIRATORY VIRUS PANEL MOLECULAR STUDY - Normal Adenovirus Detection by PCR Not Detected Influenza A PCR Not Detected Influenza B PCR Not Detected Coronavirus 229E Not Detected Coronavirus HKU1 Not Detected Coronavirus OC43 Not Detected Coronavirus NL63 Not Detected Parainfluenza Virus 1 Not Detected Parainfluenza Virus 2 Not Detected Parainfluenza Virus 3 Not Detected Parainfluenza Virus 4 Not Detected RSV PCR Not Detected Human Metapneumovirus A and B Not Detected Rhinovirus/Enterovirus Not Detected Bordetella pertussis Not Detected Bordetella parapertussis Not Detected Mycoplasma pneumo by PCR Not Detected Chlamydia pneumoniae Not Detected SARS COV-2 Not Detected Narrative: Testing was performed using the [employer] Respiratory Pathogen PCR Assay. All results must [...] that are below the limit of detection. Abnormal Labs Reviewed COMPLETE BLOOD COUNT - Abnormal; Notable for the following components: Result Value WBC 18.7 (*) RBC 5.10 (*) MCH 26.4 (*) MCHC 31.8 (*) RDW 15.7 (*) Platelets 427 (*) MPV 11.7 (*) All other components within normal limits COMPREHENSIVE METABOLIC PANEL - Abnormal; Notable for the following components: AST (SGOT) 52 (*) ALT (SGPT) 64 (*) Total Protein 8.4 (*) All other components within normal limits XR Chest 2 Views Final Result Normal chest radiographs. -------- FINAL REPORT -------- Dictated By: Enmanuel Friend Dictated Date: 09/26/2024 08:31 ET Assigned Physician: Enmanuel Friend Reviewed and Electronically Signed By: Enmanuel Friend Signed Date: 09/26/2024 08:31 ET Workstation ID: [id number] Transcribed By: Self Edit Transcribed Date: 09/26/2024 08:31 ET I have discussed the incidental/abnormal imaging and/or lab abnormalities with the patient and haveinstructed them the need for further evaluation and workup with their primary care doctor. The laboratory results, imaging results and other diagnostic exam results were reviewed in the EMR. EKG Interpretation Critical Care Time None ? Medical Decision Making Medications albuterol 2.5 mg /3 mL (0.083 %) nebulizer solution 2.5 mg (2.5 mg nebulization Given 09/25/24 185) methylPREDNISolone sodium succ (SOLU-Medrol) injection 125 mg (125 mg intravenous Given 09/25/24 1924) magnesium sulfate 2 gram/50 mL (4 %) IVPB 2 g (0 g intravenous Stopped 09/25/242105) albuterol 2.5 mg /3 mL (0.083 %) nebulizer solution 10 mg (10 mg nebulization Given 09/25/24 193) doxycycline (MONODOX) capsule 100 mg (100 mg oral Given 09/25/242231) ED Course as of 09/26/241949Sep 25, 20242048 The patient was signed out to this provider at shift change. In summary the patient is a 48-year-old female presenting with severe shortness of breath and wheezing. The patient has no reported diagnosed respiratory disease, no history of asthma or COPD. The patient was treated with magnesium, Solu-Medrol, and albuterol x 2. At time of signout chest x-ray, laboratory evaluation, and viral panel were all pending. At this time the patient's CBC has resulted with a leukocytosis of 18.7, remaining laboratory workup is still pending. Will follow- up lab results and reassess for improvement in symptoms. [RM] 2205 The patient's chest x-ray was reviewed and shows no focal consolidation, no other acute cardiopulmonary process. CMP shows mildly elevated ALT and AST, no other acute findings. Patient has no old labs available in the EMR to trend leukocytosis. On repeat examination the patient's lung sounds are markedly improved compared to previously reported, no wheezing, no increased respiratory effort or work of breathing. The patient has remained afebrile, heart rate has improved slightly despite multiple rounds of albuterol, no hypoxia, patient denies chest pain or pleurisy. The patient's productive cough and shortness of breath have been ongoing for over 10 days. In the setting of greater than 10 days of symptoms and noted leukocytosis, despite lack of consolidation on x-ray we will treat with a course of doxycycline and prednisone burst. Patient will be discharged with instructions to follow-up with PCP for reevaluation and pulmonary function testing. [RM] ED Course User Index [RM] CONOR Mendez Clinical Impressions as of 09/26/241949 Acute cough Procedures Procedures Diagnosis 1. Acute cough Disposition Discharge ED Prescriptions Medication Sig Dispense Start Date End Date Auth. Provider doxycycline (MONODOX) 100 mg capsule Take 1 capsule (100 mg total) by mouth 2 (two) times a day for7 days. Take with at least 8 ounces (large glass) of water, do not lie down for 30 minutes after 14each 09/25/2024 10/02/2024 CONOR Mendez predniSONE (DELTASONE) 20 mg tablet Take 3 tablets (60 mg total) by mouth 1 (one) time each day. 15tablet 09/25/2024 -- CONOR Mendez Physician Attestation Yogi Carrillo DO 09/25/242013 Yogi Carrillo DO 09/26/24 0814 Yogi Carrillo DO 09/26/241949 documented in this encounter Plan of Treatment Not on file documented as of this encounter Procedures Procedure Name Priority Date/Time Associated Diagnosis Comments XR CHEST 2 VIEWS STAT 09/25/2024 9:20 PM EST COMPLETE BLOOD COUNT STAT 09/25/2024 7:31 PM EST COMPREHENSIVE METABOLIC PANEL STAT 09/25/2024 7:31 PM EST RESPIRATORY VIRUS PANEL MOLECULAR STUDY STAT 09/25/2024 7:25 PM EST documented in this encounter Results * XR Chest 2 Views (09/25/2024 9:20 PM EST) Anatomical Region Laterality Modality Body Radiographic Rebecca ging 09/26/2024 8:31 AM EST Impressions 09/26/2024 8:31 AM EST Normal chest radiographs. -------- FINAL REPORT -------- Dictated By: Enmanuel Friend Dictated Date: 09/26/2024 08:31 ET Assigned Physician: Enmanuel Friend Reviewed and Electronically Signed By: Enmanuel Friend Signed Date: 09/26/2024 08:31 ET Workstation ID: [id number] Transcribed By: Self Edit Transcribed Date: 09/26/2024 [...] Signed Date: 09/26/2024 08:31 ET Workstation ID: [id number] Transcribed By: Self Edit Transcribed Date: 09/26/2024 08:31 ET Lauri PERDOMO IMG XR PROCEDURES * (ABNORMAL) Comprehensive metabolic panel (09/25/2024 7:31 PM EST) [facility] Signature Sodium 137 133 - 145 mmol/L LAB CHEMISTRY METHOD 09/25/2024 8:54 PM [facility] Potassium 3.7 3.5 - 5.5 mmol/L LAB CHEMISTRY METHOD 09/25/2024 8:54 PM [facility] Chloride 106 96 - 110 mmol/L LAB CHEMISTRY METHOD 09/25/2024 8:54 PM [facility] CO2 23 21 - 32 mmol/L LAB CHEMISTRY METHOD 09/25/2024 8:54 PM [facility] Anion Gap 8 3 - 11 LAB CHEMISTRY METHOD 09/25/2024 8:54 PM [facility] Glucose 98 70 - 100 mg/dL LAB CHEMISTRY METHOD 09/25/2024 8:54 PM [facility] BUN 16 5 - 25 mg/dL LAB CHEMISTRY METHOD 09/25/2024 8:54 PM [facility] Creatinine 0.86 0.50 - 1.10 mg/dL LAB CHEMISTRY METHOD 09/25/2024 8:54 PM [facility] eGFR 83 >=60 mL/min/1. 73m2 LAB CHEMISTRY METHOD 09/25/2024 8:54 PM [facility] Comment:Calculation based on the??Chronic Kidney Disease Epidemiology Collaboration (CKD-EPI) equation refit??without adjustment for race. BUN/Creatinine Ratio 18.6 LAB CHEMISTRY METHOD 09/25/2024 8:54 PM [facility] Calcium 9.7 8.5 - 10.5 mg/dL LAB CHEMISTRY METHOD 09/25/2024 8:54 PM [facility] AST (SGOT) 52(H) 10 - 42 unit/L LAB CHEMISTRY METHOD 09/25/2024 8:54 PM [facility] ALT (SGPT) 64(H) 10 - 60 unit/L LAB CHEMISTRY METHOD 09/25/2024 8:54 PM EST [facility] Alkaline Phosphatase 99 42 - 121 unit/L LAB CHEMISTRY METHOD 09/25/2024 8:54 PM EST [facility] Total Protein 8.4(H) 6.0 - 8.0 g/dL LAB CHEMISTRY METHOD 09/25/2024 8:54 PM [facility] Albumin 4.3 3.2 - 5.0 g/dL LAB CHEMISTRY METHOD 09/25/2024 8:54 PM [facility] Total Bilirubin 0.3 0.0 - 1.4 mg/dL LAB CHEMISTRY METHOD 09/25/2024 8:54 PM [facility] Blood Venous blood specimen / Unknown Venipuncture / Unknown 09/25/2024 7:31 PM EST 09/25/2024 7:57 PM EST Chio Ritchie DO LAB BLOOD ORDERAB LES [facility] [address] [place] [address], * (ABNORMAL) CBC (09/25/2024 7:31 PM EST) WBC 18.7(H) 4.8 - 10.8 K/mcL LAB HEMETOLOGY METHOD 09/25/2024 8:08 PM [facility] RBC 5.10(H) 3.80 - 4.80 M/mcL LAB HEMETOLOGY METHOD 09/25/2024 8:08 PM [facility] Hemoglobin 13.4 11.5 - 16.0 g/dL LAB HEMETOLOGY METHOD 09/25/2024 8:08 PM [facility] Hematocrit 42.1 35.0 - 47.0 % LAB HEMETOLOGY METHOD 09/25/2024 8:08 PM [facility] MCV 82.9 79.0 - 98.0 FL LAB HEMETOLOGY METHOD 09/25/2024 8:08 PM EST [facility] MCH 26.4(L) 27.0 - 32.0 pcg LAB HEMETOLOGY METHOD 09/25/2024 8:08 PM EST [facility] MCHC 31.8(L) 32.0 - 37.0 g/dL LAB HEMETOLOGY METHOD 09/25/2024 8:08 PM EST [facility] RDW 15.7(H) 11.0 - 15.0 % LAB HEMETOLOGY METHOD 09/25/2024 8:08 PM [facility] Platelets 427(H) 130 - 400 K/mcL LAB HEMETOLOGY METHOD 09/25/2024 8:08 PM [facility] MPV 11.7(H) 7.0 - 11.0 FL LAB HEMETOLOGY METHOD 09/25/2024 8:08 PM EST [facility] NRBC 0.0 <1.0 % LAB HEMETOLOGY METHOD 09/25/2024 8:08 PM [facility] NRBC Absolute 0.00 <0.10 K/mcL LAB HEMETOLOGY METHOD 09/25/2024 8:08 PM [facility] Blood Venous blood specimen / Unknown Venipuncture / Unknown 09/25/2024 7:31 PM EST 09/25/2024 7:57 PM EST Chio Ritchie DO LAB BLOOD ORDERAB LES [facility] [address] [place] [address], * Respiratory virus panel molecular study (09/25/2024 7:25 PM EST) Adenovirus Detection by PCR Not Detected Not Detected LAB MICROBIOLOGY METHOD 09/25/2024 9:18 PM EST [facility] Influenza A PCR Not Detected Not Detected LAB MICROBIOLOGY METHOD 09/25/2024 9:18 PM EST [facility] Influenza B PCR Not Detected Not Detected LAB MICROBIOLOGY METHOD 09/25/2024 9:18 PM EST [facility] Coronavirus 229E Not Detected Not Detected LAB MICROBIOLOGY METHOD 09/25/2024 9:18 PM [facility] Coronavirus HKU1 Not Detected Not Detected LAB MICROBIOLOGY METHOD 09/25/2024 9:18 PM [facility] Coronavirus OC43 Not Detected Not Detected LAB MICROBIOLOGY METHOD 09/25/2024 9:18 PM [facility] Coronavirus NL63 Not Detected Not Detected LAB MICROBIOLOGY METHOD 09/25/2024 9:18 PM [facility] Parainfluenza Virus 1 Not Detected Not Detected LAB MICROBIOLOGY METHOD 09/25/2024 9:18 PM [facility] Parainfluenza Virus 2 Not Detected Not Detected LAB MICROBIOLOGY METHOD 09/25/2024 9:18 PM [facility] Parainfluenza Virus 3 Not Detected Not Detected LAB MICROBIOLOGY METHOD 09/25/2024 9:18 PM [facility] Parainfluenza Virus 4 Not Detected Not Detected LAB MICROBIOLOGY METHOD 09/25/2024 9:18 PM [facility] RSV PCR Not Detected Not Detected LAB MICROBIOLOGY METHOD 09/25/2024 9:18 PM [facility] Human Metapneumovirus A and B Not Detected Not Detected LAB MICROBIOLOGY METHOD 09/25/2024 9:18 PM [facility] Rhinovirus/Entero virus Not Detected Not Detected LAB MICROBIOLOGY METHOD 09/25/2024 9:18 PM [facility] Bordetella pertussis Not Detected Not Detected LAB MICROBIOLOGY METHOD 09/25/2024 9:18 PM [facility] Bordetella parapertussis Not Detected Not Detected LAB MICROBIOLOGY METHOD 09/25/2024 9:18 PM EST [facility] Mycoplasma pneumo by PCR Not Detected Not Detected LAB MICROBIOLOGY METHOD 09/25/2024 9:18 PM EST [facility] Chlamydia pneumoniae Not Detected Not Detected LAB MICROBIOLOGY METHOD 09/25/2024 9:18 PM EST [facility] SARS COV-2 Not Detected Not Detected LAB MICROBIOLOGY METHOD 09/25/2024 9:18 PM [facility] Swab Both anterior nares / Unknown Non-blood Collection / Unknown 09/25/2024 7:25 PM EST 09/25/2024 8:17 PM EST [facility] - 09/25/2024 9:18 PM EST Testing was performed using the [employer] Respiratory Pathogen PCR Assay. All results must [...] DO LAB MICROBIOLOGY - G ENERAL ORDERABLES [facility] [address] [place] [address], documented in this encounter Visit Diagnoses Diagnosis Acute cough- Primary documented in this encounter Administered Medications Inactive Administered Medications - up to 3 most recent administrations Medication Order MAR Action Action Date Dose Rate Site albuterol 2.5 mg /3 mL (0.083 %) nebulizer solution - ADS Override Pull Starting on Mon09/25/24 at 1849, For 1 dose, Created by cabinet override albuterol 2.5 mg /3 mL (0.083 %) nebulizer solution 10 mg 10 mg, nebulization, Once, On Mon09/25/24 at 1937, For 1 dose Given 09/25/2024 7:39 PM EST 10 mg albuterol 2.5 mg /3 mL (0.083 %) nebulizer solution 2.5 mg 2.5 mg, nebulization, Once as needed, wheezing, Starting on Mon09/25/24 at 1846, For 1 dose Given 09/25/2024 6:55 PM EST 2.5 mg doxycycline (MONODOX) capsule 100 mg 100 mg, oral, Once, On Mon09/25/24 at 2223, For 1 dose, Take with at least 8 ounces (large glass) of water, do not lie down for 30 minutes after, Indication: Pneumonia, Community Acquired Given 09/25/2024 10:32 PM EST 100 mg magnesium sulfate 2 gram/50 mL (4 %) IVPB 2 g 2 g, intravenous, at 25 mL/hr, Administer over 2 Hours, Once, On Mon09/25/24 at 1909, For 1 dose New Bag 09/25/2024 7:25 PM EST 2 g 25 mL/hr methylPREDNISolone sodium succ (SOLU-Medrol) injection 125 mg 125 mg, intravenous, Once, On Mon09/25/24 at 1909, For 1 dose, Reconstitute each 125 mg vial with 2 mL sterile water for injection to a concentration of 62.5 mg/mL. Given 09/25/2024 7:24 PM EST 125 mg documented in this encounter Active and Recently Administered Medications Times are shown in EST. Scheduled Medication Order 09/23/2024 09/24/2024 09/25/2024 albuterol 2.5 mg /3 mL (0.083 %) nebulizer solution 10 mg (COMPLETED) 10 mg, nebulization, Once, On Mon09/25/24 at 1937, For 1 dose 1938 (Given - Provid er: Josselin Black RN) doxycycline (MONODOX) capsule 100 mg (COMPLETED) 100 mg, oral, Once, On Mon09/25/24 at 2223, For 1 dose, Take with at least 8 ounces (large glass) of water, do not lie down for 30 minutes after, Indication: Pneumonia, Community Acquired 2231 (Given - Provid er: Josselin Black RN) magnesium sulfate 2 gram/50 mL (4 %) IVPB 2 g (COMPLETED) 2 g, intravenous, at 25 mL/hr, Administer over 2 Hours, Once, On Mon09/25/24 at 1909, For 1 dose 1924 (New Bag - Prov ider: Josselin Black RN)2105 (Stopped - Provider: Josselin Black RN) methylPREDNISolone sodium succ (SOLU-Medrol) injection 125 mg (COMPLETED) 125 mg, intravenous, Once, On Mon09/25/24 at 1909, For 1 dose, Reconstitute each 125 mg vial with 2 mL sterile water for injection to a concentration of 62.5 mg/mL. 1923 (Given - Provid er: Josselin Black RN) PRN Medication Order 09/23/2024 09/24/2024 09/25/2024 albuterol 2.5 mg /3 mL (0.083 %) nebulizer solution 2.5 mg (COMPLETED) 2.5 mg, nebulization, Once as needed, wheezing, Starting on Mon09/25/24 at 1846, For 1 dose 1855 (Given - Provid er: Gera Lopez RN) documented in this encounter Orders Medications Ordered That Huey ht Not Have Been Administered Count Last Ordered Date First Ordered Date albuterol 2.5 mg /3 mL (0.08 3 %) nebulizer solution 10 mg 1 09/25/2024 Isolation Count Last Ordered Date First Orde red Date INITIATE DROPLET ISOLATION 1 09/25/2024 documented in this encounter Additional Health Concerns Infection Onset Date Last Indicated Resolved Time Respiratory Rule-Out 09/25/2024 09/25/2024 025 9:18 PM EST COVID-19 Rule-Out 09/25/2024 09/25/2024 09/25/2024 9:18 PM EST documented as of this encounter Care Teams Multi Disciplined Language Analyst Relationship Specialty Start Date End Date Gilmer Silverio MD [address] [place] [id number] PCP - General Internal Medicine 08/07/24 documented as of this encounter
--- OUTSIDE RECORDS SUMMARY | 2024-10-08 05:59 | XMS_ITS | Encounter Summary ---
Author Organization [employer] Address [address] [facility] [address] [place] [address] Care Team Providers Care Bore Mill Operator Name Role Phone Gilmer Alvarez MD Primary Care Provide r Reason for Visit * Reason Onset Date Comments Med Refill 08/10/2023 Encounter Details Date Type Department Care Team ([facility] st Contact Info) Description 08/10/2023 Telephone [facility]INE [address], [place] [phone] Gilmer Alvarez MD [address] [place] [address] Med Refill Social History Tobacco Use Types Packs/Day Years Used Date Smoking Tobacco: Never Smokeless Tobacco: Never Depression Answer Date Recorded Patient Health Questionnaire-9 Score 0 04/06/2023 Housing Stability Answer Date Recorded What is your housing situation today? I have veronica pleitez 07/03/[address] you li ve. Do you have problems with any of the following? None of the above 07/03/2023 Food Insecurity Answer Date Recorded Within the past 12 months, y ou worried that your food would run out before you got money to buy more: Never True 07/03/2023 Within the past 12 months,th e food you bought just didn't last and you didn't have enough money to get more: Never True Transportation Answer Date Recorded In the past 12 months, has l ack of transportation kept you from medical appts, meetings, work or from getting things needed for daily living? No 07/03/2023 Utilities Answer Date Recorded In the past 12 months, has t he electric, gas, oil or water company threatened to shut off services in your home? No 07/03/2023 Depression Answer Date Recorded Patient Health Questionnaire-2 Score 0 04/06/2023 Comments Unknown Sex and Gender Information Value Date Recorded Sex Assigned at Female 07/11/2022 10:16 AM EDT Legal Sex Female 10:16 AM EDT Gender Identity Female 07/11/2022 10:16 AM EDT Sexual Orientation Straight 07/11/2022 10 :16 AM EDT documented as of this encounter Miscellaneous Notes * Telephone Encounter - Lorrie Zapata LPN - 08/10/2023 1:02 PM EST Medication pended to provider. * Telephone Encounter - Camryn Hdez - 08/10/2023 11:57 AM EST Tc from pt requesting a med refill on medication: SUMAtriptan (Imitrex) [address] Subramanian documented in this encounter Plan of Treatment Upcoming Encounters Date Type Department Care Team (Late st Contact Info) Description 11/19/2024 11:15 AM EDT Office Visit [facility] [address] [place] [address] Gilmer Alvarez MD [address] [place] [address] documented as of this encounter Visit Diagnoses Not on filedocumented in this encounter Additional Health Concerns Assessment Noted Time PHQ-9 Depression Total Score: 0 04/06/20 23 3:23 PM EDT documented as of this encounter Care Teams Bore Mill Operator Relationship Specialty Start Date End Date Gilmer Alvarez MD [address] [place] [address] PCP - General Internal Medicine 06/18/14 documented as of this encounter
--- OUTSIDE RECORDS SUMMARY | 2024-10-08 05:59 | XMS_ITS | Encounter Summary ---
Author Organization [employer] Address [address] [facility] [address] [place] [address] Care Team Providers Care Flask Cleaner Name Role Phone Gilmer Alvarez MD Primary Care Provide r Reason for Visit * Reason Onset Date Comments Med Refill 04/26/2024 Encounter Details Date Type Department Care Team ([facility] st Contact Info) Description 04/26/2024 Telephone [facility] MEDICINE [address] [place], [place] [phone] Gilmer Alvarez MD [address] [place] [address] Med Refill Social History Tobacco Use Types [...] Telephone Encounter - Lorrie Zapata LPN - 04/26/2024 10:04 AM EDT Medication isn't prescribed by PCP. * Telephone Encounter - Jey Garcia - 04/26/2024 10:01 AM EDT TC from pt requesting medication refill. Medications needing refill : topiramate 50 MG tablet To be sent to: [facility] - [place], [place] - [address] [facility] documented in this encounter Plan of Treatment Upcoming Encounters Date Type Department Care Team (Late st Contact Info) Description 11/19/2024 11:15 AM EDT Office Visit [facility] MED[facility]INE [address] [place] [address] Gilmer Alvarez MD [address] [place] [address] documented as of this encounter Visit Diagnoses Not on filedocumented in this encounter Additional Health Concerns Assessment Noted Time PHQ-9 Depression Total Score: 0 04/06/20 23 3:23 PM EDT documented as of this encounter Care Teams Flask Cleaner Relationship Specialty Start Date End Date Gilmer Alvarez MD [address] [place] [address] PCP - General Internal Medicine 06/18/14 documented as of this encounter
--- OUTSIDE RECORDS SUMMARY | 2024-10-08 05:59 | XMS_ITS | Encounter Summary ---
Author Organization [employer] Address [address] [place] [address] Care Team Providers Care Customs Import Specialist Name Role Phone Gilmer Alvarez MD Primary Care Provide r Encounter Details Date Type Department Care Team (Latest Contact Info) Description 09/17/2024 Travel Social History Tobacco Use Types Packs/Day Years [...] Description 11/19/2024 11:15 AM EDT Office Visit [facility] MEDICINE [address] [place] [address] Gilmer Alvarez MD [address] [place] [address] documented as of this encounter Visit Diagnoses Not on filedocumented in this encounter Additional Health Concerns Assessment Noted Time PHQ-9 Depression Total Score: 0 09/17/19 25 2:35 PM EST documented as of this encounter Care Teams Customs Import Specialist Relationship Specialty Start Date End Date Gilmer Alvarez MD [address] [place] [address] PCP - General Internal Medicine 06/18/14 documented as of this encounter
== END 2024-10-08 05:58 | disposition home or self-care (01) ==
LOC: HO.NEURO 05:57
PROVIDERS: PCP Internal Medicine; Visit Provider Internal Medicine
DX: M54.2 Cervicalgia (principal); M25.512 Pain in left shoulder
CPT/HCPCS: 95886; 95910

== ENCOUNTER 2024-11-19 11:40 | Outpatient (REF) | payer MEDICAID, SELFPAY ==
[2024-11-19 13:09] LABS: MANUAL DIFF FLAG NO
[2024-11-19 13:39] LABS: Basophils Percent Auto 0.4 % (0-2); Eosinophils Absolute Auto 0.2 X10*3/uL (0.0-0.4); Eosinophils Percent Auto 2.3 % (0-4); Hematocrit 43.2 % (37.0-47.0); Hemoglobin 13.4 g/dl (12.0-16.0); Imm Gran Abs Auto 0.03 X10*3/uL (0.00-0.03); Imm Gran Pct Auto 0.4 % (0.0-0.4); Lymphocytes Absolute Auto 2.7 X10*3/uL (1.2-4.9); Lymphocytes Percent Auto 32.5 % (20-40); Mean Corpuscular Hemoglobin 25.9 pg (27.0-33.0); Mean Corpuscular Volume 83.6 fL (80.0-98.0); Mean Platelet Volume 11.5 fL (9.4-12.3); Monocytes Absolute Auto 0.6 X10*3/uL (0.1-1.2); Monocytes Percent Auto 6.5 % (2-11); Neutrophils Absolute Auto 4.9 x10*3/uL (2.0-8.3); Neutrophils Percent Auto 57.9 % (45-73); Platelet Count 381 X10*3/uL (160-400); Red Blood Count 5.17 X10*6/uL (4.20-5.50); Red Cell Distribution Width 15.3 % (11.0-16.0); White Blood Count 8.4 X10*3/uL (4.8-10.8)
[2024-11-19 14:21] LABS: Alanine Aminotransferase 21 U/L (0-31); Albumin Level 4.3 g/dL (3.5-5.0); Alkaline Phosphatase 82 U/L (39-117); Anion Gap 14 (12-20); Aspartate Amino Transferase 28 U/L (5-31); Bilirubin Total 0.2 mg/dL (0.0-1.0); Blood Urea Nitrogen 11 mg/dL (9-16); Calcium 9.8 mg/dL (8.4-10.2); Carbon Dioxide 24 mmol/L (22-29); Chloride 107 mmol/L (96-108); Estimated Glomerular Filt Rate > 60; Glucose Random 83 mg/dL (60-115); Sodium 140 mmol/L (135-145); Total Protein 8.2 g/dL (6.5-8.0)
--- OUTSIDE RECORDS SUMMARY | 2024-11-19 14:27 | XMS_ITS | Clinical Summary ---
Author Organization [employer] Address [address] [facility] [address] [place] [address] Care Team Providers Care Research Technologist Name Role Phone Gilmer Alvarez MD Primary [...] XL (Wellbutrin XL) 150 MG 24 hr tabletIndications :Depressive disorder Take 1 tablet (150 mg) by mouth Once per day. Do not crush, chew, or split. 30 tablet 6 03/05/20 24 Active hydrOXYzine pamoate (Vistaril) 25 MG capsuleIndication s:Anxiety TAKE 1 CAPSULE BY MOUTH EVERY 8 HOURS NEEDED FOR ANXIETY 90 capsule 1 04/22/20 24 Active fluticasone (Flonase) 50 MCG/ACT nasal sprayIndications: Right ear pain Administer 1-2 sprays into each nostril Once per day. Shake gently. Before first use, prime pump. After use, clean tip and replace cap. 16 g 2 08/02/20 24 2024 Active cetirizine (ZyrTEC) 10 MG tabletIndications :Right ear pain Take 1 tablet (10 mg) by mouth Once per day. 30 tablet 5 08/02/20 24 2024 Active clotrimazole (Lotrimin) 1 % creamIndications: Tinea corporis Apply to affected area of skin twice a day until resolved, between 1-3 weeks. 60 g 1 08/05/20 24 Active Blood Pressure kitIndications:Pr imary hypertension Use once a week 1 kit 09/17/19 25 Active predniSONE (Deltasone) 20 MG tabletIndications :Cough, unspecified type 2 tabs po daily for 5 days 10 tablet 09/23/19 25 Active amLODIPine (Norvasc) 2.5 MG tabletIndications :Primary hypertension TAKE 1 TABLET BY MOUTH ONCE DAILY 90 tablet 1 11/06/19 25 Active amLODIPine (Norvasc) 2.5 MG tabletIndications :Primary hypertension Take 1 tablet (2.5 mg) by mouth Once per day. 30 tablet 3 08/15/20 24 2024 Discontinued Active Problems Problem Noted Date Diagnosed Date Right lower quadrant abdominal pain 11/19/2024 Assessment & Plan (11/19/2024 11:35 AM EDT): Patient seen in the ER, 10/15/2024 as part of her work up she had a CT with IV contrast that showed: CT abdomen and pelvis with contrast No consolidation or effusion. The liver, gallbladder, spleen, adrenal glands and pancreas are unremarkable. The kidneys demonstrate neither obstruction nor suspicious lesion. The bladder is decompressed. Uterus and adnexa are within normal limits. Normal appendix. Gas and fluid throughout nondistended small and large bowel with engorgement of the vasa recta. Trace free fluid in the pelvis. No acute osseous finding. Findings as per radiologist were those of a mild enteritis Plan: will refer to GI pt interested in colorectal cancer screen Kidney stone 10/15/2024 Neck pain on left side 09/17/2024 Assessment & Plan (11/19/2024 8:58 AM EDT): Pt with previous c/o left sided neck pain radiates to left shoulder and arm Exam: evidence of muscle spasm Plain films showed: Degenerative disc changes C5-6 disc level with mild posterior spondylosis. Pt sent for PT eval NCS was unremarkable Assessment & Plan (09/17/2024 2:54 PM EST): Pt with c/o left sided neck pain radiates to left shoulder and arm Exam: evidence of muscle spasm Plan: Plain films, PT eval NCS to rule out radiculopathy Acute pain of left shoulder 09/17/2024 Assessment & Plan (11/19/2024 8:59 AM EDT): Pt with previous c/o left sided neck pain radiates to left shoulder and arm Exam: evidence of muscle spasm Plain films showed: Unremarkable shoulder Pt referred for PT eval NCS was unremarkable Assessment & Plan (09/17/2024 2:54 PM EST): Pt with c/o left sided neck pain radiates to left shoulder and arm Exam: evidence of muscle spasm Plan: Plain films, PT eval NCS to rule out radiculopathy Cough 09/17/2024 Assessment & Plan (11/19/2024 11:33 AM EDT): Pt with mild non productive cough, lungs CTA B. Plan: will obtain PFTs to tule out cough variant asthma Assessment & Plan (09/17/2024 3:04 PM EST): Pt with mild non productive cough, lungs CTA B. Neg rapid flu and neg rapid covid tests Plan: Supportive measures, guaifenesin PRN. Ok to go back to work Subconjunctival hemorrhage of left eye Assessment & Plan (08/15/2024 12:16 PM EST): -no other symptoms -appointment for tomorrow with [facility] eye care 3:30 -Advised to go to ER for increased pain, vision changes, worsening symptoms or concerns. She agrees with the plan. Primary hypertension 08/15/2024 Assessment & Plan (11/19/2024 11:15 AM EDT): Pt here for a follow up On Amlodipine 2.5mg daily Follow up 3 months Assessment & Plan (09/17/2024 2:57 PM EST): Pt's blood pressure elevated recently started on Amlodipine 2.5mg daily 08/15/24. At [facility] Pt did not take it today Plan: [...] to the Breast and wellness Ctr at [facility]. She was seen 04/03/2024 and reassured that [...] to the Breast and wellness Ctr at [facility] Adjustment disorder with anxiety 12/13/2023 Assessment & [...] intervention , Patient to reach out to [facility] team as needed, Comply with medication , [...] to the Breast and wellness Ctr at [facility]. She was seen 04/03/2024 and reassured that [...] to the Breast and wellness Ctr at [facility] Breast mass, left 09/01/2022 Assessment & Plan [...] in 01/2023. Pt was also referred to [facility] Breast Center, seen 08/10/2022 Complex cyst of [...] the same cyst. Pt was referred to [facility] . Pt tells me she is going to schedule an appointment. She tells me she is seeing someone at [facility] Repeat Pelvic US 10/2023 showed:A small degenerating [...] the same cyst. Pt was referred to [facility] . Pt tells me she is going to schedule an appointment. She tells me she is seeing someone at [facility] Will repeat Pelvic US Assessment & Plan [...] the same cyst. Pt was referred to [facility] Preventative health care 09/01/2022 Assessment & Plan (11/19/2024 11:25 AM EDT): Mammogram:Pt had a Mammogram 07/2022 that showed a [...] to the Breast and wellness Ctr at [facility]. She was seen 04/03/2024 and reassured that there was no breast sources of her pain and it was likely referred pain Pap smear: Pap Smear: NL: 06/23/2021 Colorectal cancer screen: referred Assessment & Plan (09/12/2023 10:52 AM EST): [...] the past she used to follow at [facility] (Paroxetine 20 mg po daily was [...] the past she used to follow at [facility] (Paroxetine 20 mg po daily was [...] the past she used to follow at [facility] (Paroxetine 20 mg po daily was [...] for a follow up, previously seen at [facility] treated with Sumatriptan with good results [...] did not go because the lack of senior software engineering manager. Pt was seen by a different neurologist at [facility] who mentioned pt had compliance issues. recommended Sumatriptan and Amitriptyline and f/u last seen 10/2013 Assessment & Plan (09/12/2023 10:58 AM EST): Recently seen at [facility] treated with Sumatriptan with good results [...] did not go because the lack of senior software engineering manager. Pt was seen by a different neurologist at [facility] who mentioned pt had compliance issues. recommended Sumatriptan and Amitriptyline and f/u last seen 10/2013 Posttraumatic stress disorder 01/31/2013 Encounters Date Type Department Care Team Description 11/19/2024 11:15 AM EDT Office Visit [facility] [address] [place] [address] Gilmer Alvarez MD Right lower quadrant abdominal pain (Primary Dx); Primary hypertension; Neck pain on left side; Subacute cough; Acute pain of left shoulder; Colon cancer screening; Preventative health care 11/19/2024 Travel 11/07/[address] [facility] [address] [place] [address] Gilmer Alvarez MD Chart Prep 11/06/[address] [facility] [address] [address] Leandra Lyon MD Primary hypertension 10/16/2024 Orders Only [facility] [address] [place] [phone] Christo Barone MD 10/16/2024 Patient Outreach [facility] [address] [place] [address] Gilmer Alvarez MD Transition Of Care (Tcm) 10/15/2024 10:40 AM EST [facility] [address] [address] Luis Starkey MD Right lower quadrant abdominal pain (Primary Dx); Right flank pain; Primary hypertension 10/15/2024 Travel 09/23/2024 9:20 AM EST [facility] [address] [address] Marcela Hurd MD Cough, unspecified type (Primary Dx); Mild intermittent reactive airway disease with acute exacerbation; Primary hypertension; Urinary frequency 09/17/2024 2:30 PM EST Office Visit [address] [address] Gilmer Alvarez MD Breast pain, left (Primary Dx); Cough, unspecified type; Complex cyst of breast; Depressive disorder; Neck pain on left side; Acute pain of left shoulder; Primary hypertension 09/17/[address] [facility] [address] [place] [address] Gilmer Alvarez MD 09/17/[address] [address] Gilmer Alvarez MD 09/17/2024 Travel 09/05/[address] [address] Gilmer Alvarez MD Chart Prep 09/05/2024 Patient Outreach [address] [address] Gilmer Alvarez MD Pre-visit Planning (SDOH Screening negative and Tobacco screening negative) 09/02/2024 9:30 AM EST Office Visit [facility] [address] [place] [address] Tata Madrid, OD Presbyopia of both eyes (Primary Dx) 09/02/2024 Travel from Last 3 Months Immunizations Name Administration [...] Sign Reading Time Taken Comments Blood Pressure 138/76 11/19/2024 11:26 AM EDT Pulse 85 11/19/2024 11:02 AM EDT Temperature 36.3 ??C (97.3 ??F) 11/19/2024 1 1:02 AM EDT Respiratory Rate 20 11/19/2024 11:0 2 AM EDT Oxygen Saturation 98% 10/15/2024 10: 43 AM EST Inhaled Oxygen Concentration - - Weight 76.1 kg (167 lb 12.8 oz) 025 11:02 AM EDT Height 154.9 cm (5' 1 ) 11/19/2024 11:0 2 AM EDT Body Mass Index 31.71 11/19/2024 11:02 AM EDT Plan of Treatment Health Maintenance Due Date Last Done Comments CT Colonography 1975 Colonoscopy 1975 Colorectal Cancer Screening 1975 FIT DNA/Cologuard 1975 FIT 1975 FOBT 1975 Sigmoidoscopy 1975 Family Planning (PISQ) 12/04/1990 Pneumococcal Vaccine: Pediatrics (0 to 5 Years) and At-Risk Patients (6 to 49) Years) (1 of 2 - PCV) 12/04/1994 Mammogram 01/12/2024 01/11/2023, 07/12, 07/22/2022, Additional history exists COVID-19 Vaccine ( season) 2024 09/17/2021, 02/23/2021, 01/26/2021 Influenza Vaccine (#1) 2024 06/23/2021 SDOH Screening 09/05/2025 09/05/2024 Alcohol/Substance Use Screening 09/17/2025 09/17/2024 Depression Screening 09/17/2025 09/17/2024, 09/17/19 25 Tobacco Screening 11/19/2025 11/19/2024 Zoster Vaccines (1 of 2) 12/04/2025 Cervical [...] Procedure Name Priority Date/Time Associated Diagnosis Comments CBC WITH AUTO DIFFERENTIAL Routine 11/19/2024 11:42 AM EDT Right lower quadrant abdominal pain COMPREHENSIVE METABOLIC PANEL Routine 11/19/2024 11:42 AM EDT Right lower quadrant abdominal pain CT ABDOMEN PELVIS W CONTRAST Routine 10/15/2024 10:35 AM EST POCT URINALYSIS DIPSTICK Routine 09/23/2024 10:14 AM [...] Recently Relevant to Health Maintenance Results * (ABNORMAL) CBC auto differential (11/19/2024 11:42 AM EDT) White Blood Count 8.4 4.8 - 10.8 X10*3/uL [facility] Red Blood Count 5.17 4.20 - 5.50 X10*6/uL [facility] Hemoglobin 13.4 12.0 - 16.0 g/dl [facility] Hematocrit 43.2 37.0 - 47.0 % [facility] Mean Corpuscular Volume 83.6 80.0 - 98.0 fL [facility] Mean Corpuscular Hemoglobin 25.9(L) 27.0 - 33.0 pg [facility] Mean Corpuscular HGB Conc 31.0 31.0 - 35.0 g/dl [facility] Red Cell Distribution Width 15.3 11.0 - 16.0 % [facility] Platelet Count 381 160 - 400 X10*3/uL [facility] Mean Platelet Volume 11.5 9.4 - 12.3 fL [facility] Neutrophils Percent Auto 57.9 45 - 73 % [facility] Imm Gran Pct Auto 0.4 0.0 - 0.4 % [facility] Lymphocytes Percent Auto 32.5 20 - 40 % [facility] Monocytes Percent Auto 6.5 2 - 11 % [facility] Eosinophils Percent Auto 2.3 0 - 4 % [facility] Basophils Percent Auto 0.4 0 - 2 % [facility] NRBC Pct Auto 0.0 0.0 - 0.2 /100WBC [facility] Neutrophils Absolute Auto 4.9 2.0 - 8.3 x10*3/uL [facility] Imm Gran Abs Auto 0.03 0.00 - 0.03 X10*3/uL [facility] Lymphocytes Absolute Auto 2.7 1.2 - 4.9 X10*3/uL [facility] Monocytes Absolute Auto 0.6 0.1 - 1.2 X10*3/uL [facility] Eosinophils Absolute Auto 0.2 0.0 - 0.4 X10*3/uL [facility] Basophils Absolute Auto 0.0 0.0 - 0.2 X10*3/uL [facility] NRBC Abs Auto 0.000 0.0 - 0.012 X10*3/uL [facility] Blood Venous blood specimen / Unknown 11/19/2024 11:42 AM EDT 11/19/2024 1:08 PM EDT Gilmer Garcia MD LAB BLOOD ORDERABLES Final Result [facility] [address] [place] [phone] * (ABNORMAL) Comprehensive Metabolic Panel (11/19/2024 11:42 AM EDT) Sodium 140 135 - 145 mmol/L [facility] Potassium 5.0 3.3 - 5.1 mmol/L [facility] Chloride 107 96 - 108 mmol/L [facility] Carbon Dioxide 24 22 - 29 mmol/L [facility] Anion Gap 14 12 - 20 [facility] Urea Nitrogen (BUN) 11 9 - 16 mg/dL [facility] Creatinine, Serum 0.76 0.5 - 1.4 mg/dL [facility] Estimated Glomerular Filt Rate >60 [facility] Comment:Chronic Kidney Disea se: Estimated GFR < 60 mL/min/1.90i4Hmtdsd Kidney Disease: Estimated GFR < 15 mL/min/1.73m2 Glucose 83 60 - 115 mg/dL [facility] Calcium 9.8 8.4 - 10.2 mg/dL [facility] Bilirubin, Total 0.2 0.0 - 1.0 mg/dL [facility] Aspartate Amino Transferase 28 5 - 31 U/L [facility] Alanine Aminotransferase 21 0 - 31 U/L [facility] Total Protein 8.2(H) 6.5 - 8.0 g/dL [facility] Albumin Level 4.3 3.5 - 5.0 g/dL [facility] Alkaline Phosphatase 82 39 - 117 U/L [facility] Blood Venous blood specimen / Unknown 11/19/2024 11:42 AM EDT 11/19/2024 1:08 PM EDT Gilmer Garcia MD LAB BLOOD ORDERABLES Final Result Performing Organization Address [facility] Co de Phone Number [facility] [address] [place] [phone] * CT Abdomen Pelvis w/ Contrast (10/15/2024 10:35 AM EST) Anatomical Region Laterality Modality Body, Pelvis, Abdomen Computed T omography us Historical Provider IMG CT PROCEDURES Final R esult * POCT Rapid Influenza B BARBOSA ID NOW (09/23/2024 10:14 AM EST) Only the most recent of2 resultswithin the time period is included. [facility] Influenza B Negative Negative, Indeterminate [facility] Swab 09/23/2024 10:1 4 AM EST Marcela Hurd MD POINT OF CARE TEST ENTER/ED IT ORDERABLES Final Result Performing Organization Address [facility] Co de Phone Number [facility] [address] [place] [phone] * POCT Rapid Influenza A BARBOSA ID NOW (09/23/2024 10:14 AM EST) Only the most recent of2 resultswithin the time period is included. [facility] Influenza A Negative Negative, Indeterminate [facility] Swab 09/23/2024 10:1 4 AM EST Marcela Hurd MD POINT OF CARE TEST ENTER/ED IT ORDERABLES Final Result Performing Organization Address [facility] Co de Phone Number [facility] [address] [place] [phone] * POCT Rapid Covid-19 BARBOSA ID NOW (09/23/2024 10:14 AM EST) [facility] Coronavirus Antigen PCR Negative Negative, Indeterminate, None Detected, Invalid, Specimen unsatisfactory for evaluation, Weakly Positive [facility] Swab 09/23/2024 10:1 4 AM EST Marcela Hurd MD POINT OF CARE TEST ENTER/ED IT ORDERABLES Final Result Performing Organization Address [facility] Co de Phone Number [facility] [address] [place] [address] [phone] * POCT Urinalysis (09/23/2024 10:14 AM EST) Color, UA Yellow Clarity, UA Clear Glucose, UA Negative Bilirubin, UA Negative Ketones, UA Negative Spec Grav, UA 1.025 Blood, UA Negative Negative, None Detected pH, UA 5.0 Protein, UA Negative Urobilinogen, UA 0.2 Leukocytes, UA Trace Negative, Rare, Trace Nitrite, UA Negative Negative, None Detected Urine 09/23/2024 10:1 4 AM EST Marcela Hurd MD POINT OF CARE TEST ENTER/ED IT ORDERABLES Final Result * Culture, Urine, Routine (09/23/2024 12:00 AM EST) Urine Urine specimen obtained by clean catch procedure / Unknown 09/23/2024 09/23/2024 Comment:UACC Narrative [facility] - 09/24/2024 8:38 AM EST Urine Culture No growth. Specimen Source: Urine clean catch Marcela Hurd MD LAB MICROBIOLOGY - GENERAL ORDERABLES Final Result Performing Organization Address [facility]/ZIP Co de Phone Number [facility] [address] [place] [phone] * XR CERVICAL SPINE 3V (09/17/2024 3:17 PM EST) Anatomical Region Laterality Modality Abdomen Radiographic Rebecca ging 09/17/2024 3:17 PM EST Narrative 09/17/2024 4:24 PM EST ?[place] [facility] ?[address] ?[place] [address] ?XRay Report ? Signed ? Patient: Webber,Purnima ?MR#: [id number] ? : 1975 ?Acct:[id number] ? Age/Sex: 48 / F ?ADM Date: 09/17/24 ? Loc: HO.HHCX ? Attending Dr: Gilmer Silverio MD ? Ordering Physician: Gilmer Silverio MD ?? Date of Service: 09/17/24 ?? Procedure(s): XR cervical spine 3V ?? Accession Number(s): [id number] ? cc: Gilmer Silverio MD ? EXAMINATION: [...] Sadie in OV> ?09/17/24 1621 ? DD/ 1517 ? TD/TT: 09/17/24 1544 ? Deicer Repairer Electric: MSM ? Procedure Note Gerald, Byron - 09/17/2024 [facility] [address] [facility] [place] [address] XRay Report Signed Patient: Purnima WebberMR#: [id number] : 1975Acct:[id number] Age/Sex: 48 / FADM Date: 09/17/24 Loc: HO.HHCX Attending Dr: Gilmer Silverio MD Ordering Physician: Gilmer Silverio MD Date of Service: 09/17/24 Procedure(s): XR cervical spine 3V Accession Number(s): [id number] cc: Gilmer Silverio MD EXAMINATION: Left shoulder [...] 09/17/24 1621 DD/ 1517 TD/TT: 09/17/24 1544 [employer] Repairer [employer]: CHET us Gilmer Garcia MD IMG XR PROCEDURES Fin al Result * XR Shoulder 2+ Views Left (09/17/2024 3:15 PM EST) Anatomical Region Laterality Modality Upper Extremities, Shoulder Left Radi ographic Imaging 09/17/2024 3:15 PM EST Narrative 09/17/2024 4:24 PM EST ?[facility] ?[address] ?[place] [address] ?XRay Report ? Signed ? Patient: Webber,Purnima ?MR#: [id number] ? : 1975 ?Acct:[id number] ? Age/Sex: 48 / F ?ADM Date: 09/17/24 ? Loc: HO.HHCX ? Attending Dr: Gilmer Silverio MD ? Ordering Physician: Gilmer Silverio MD ?? Date of Service: 09/17/24 ?? Procedure(s): XR shoulder LT min 2V ?? Accession Number(s): [id number] ? cc: Gilmer Silverio MD ? EXAMINATION: [...] ?? spondylosis. ? Electronically signed by: ??Stefano Sadie MD ??09/17/2024 04:21 PM EST RP ? Dictated By: ?Sadie,Stefano S MD ? Signed By: ?<Electronically signed by Stefano S Sadie, MD in OV> ?09/17/24 1621 ? DD/ 1515 ? TD/TT: 09/17/24 1544 ? [employer]icer Repairer [employer]: MSM ? Procedure Note Gerald, Image - 09/17/[address] [place] [address] XRay Report Signed Patient: Leonardo Webber#: [id number] : 1975Acct:[id number] Age/Sex: 48 / FADM Date: 09/17/24 Loc: HO.HHCX Attending Dr: Gilmer Silverio MD Ordering Physician: Gilmer Silverio MD Date of Service: 09/17/24 Procedure(s): XR shoulder LT min 2V Accession Number(s): [id number] cc: Gilmer Silverio MD EXAMINATION: Left shoulder [...] 09/17/24 1621 DD/ 1515 TD/TT: 09/17/24 1544 [employer] Repaire[employer]: CHET us Gilmer Garcia MD IMG XR PROCEDURES Fin al Result * POCT Rapid Covid-19 BinaxNOW (09/17/2024 2:37 PM EST) [facility] Rapid COVID Ag Negative QC Media Lot # [id number] Lot# Expiration Date [id number] Swab 09/17/2024 2:37 PM EST Gilmer aGrcia MD POINT OF CARE TEST EN TER/EDIT ORDERABLES Final Result * (ABNORMAL) Lipid Panel with Reflex to Direct LDL (09/16/2023 8:58 AM EST) [facility] Triglycerides 69 <150 mg/dL [facility] Comment:Desirable Triglyceri de: less than 150 mg/dLBorderline High Triglyceride 150-199 mg/dLHigh Triglyceride: 200-499 mg/dLVery High Triglyceride: greater than or equal to 5OO mg/dL Cholesterol 196 <200 mg/dL [facility] Comment:Desirable Cholestero l: less than 200 mg/dLBorderline High Cholesterol: 200-239 mg/dLHigh Cholesterol: greater than 239 mg/dL LDL Cholesterol Calculated 121(H) <100 mg/dL [facility] Comment:Desirable LDL: less than 100 mg/dLNear Optimal/Above Optimal LDL: 110- 129 mg/dLBorderline High LDL: 130-159 mg/dLHigh LDL: 160-189 mg/dLVery High LDL: greater than or equal to 190 mg/dL HDL Cholesterol 62 >40 mg/dL [facility] Comment:Desirable HDL: great er than 40 mg/dL Note: This HDL assay may give artificially low results in patients with liver disease. Blood 09/16/2023 8:58 AM EST 09/16/2023 8:58 AM EST Gilmer Garcia MD LAB BLOOD ORDERABLES Final Result [facility] [address] [place] [phone] * Mammography (01/11/2023 11:46 AM EDT) Pathologist [facility] Mammogram Birads-1 Anatomical Region Laterality Modality Other Historical Provider HEALTH MAINTENANCE Final Result * Hepatitis C Antibody with Reflex to HCV, RNA, Quantitative, Real-Time PCR (09/02/2022 9:37 AM EST) Hepatitis C Antibody NON-REACT ADELINE NON-REACT ADELINE [employer] Index 0.06 <1.00 [employer] Comment: HCV antibody was non-reactive. There is no laboratory evidence of HCV infection. In most cases, no further action is required. However, if recent HCV exposure is suspected, a test for HCV RNA (test code 52947) is suggested. For additional information please refer to http://education.[employer] Company/faq/GXE29y6 (This link is being provided for informational/ educational purposes only.) Blood Venous blood specimen / Unknown 09/02/2022 9:37 AM EST 09/02/2022 9:38 AM EST Narrative [facility] - 09/04/2022 8:57 AM EST FASTING:NO FASTING: NO Gilmer Garcia MD LAB BLOOD ORDERABLES Final Result [facility] [address] [facility], [facility], [place] [address] [employer] [address], ([address]) [place] [address] * HIV-1/2 Antigen and Antibodies, Fourth Generation, with Reflexes (09/02/2022 9:37 AM EST) Pathologist [facility] HIV Antigen/Antibody, 4th Generation NON-REAC TIVE NON-REAC TIVE [employer] Comment: HIV-1 antigen and HIV-1/HIV-2 antibodies were [...] ?? For additional information please refer to http://education.Curbside.Row44/faq/GLQ424 (This link is being provided for informational/ educational purposes only.) The performance of this assay has not been clinically validated in patients less than 2 years old. Blood Venous blood specimen / Unknown 09/02/2022 9:37 AM EST 09/02/2022 9:38 AM EST Narrative [facility] - 09/04/2022 8:57 AM EST FASTING:NO FASTING: NO us Gilmer Garcia MD LAB BLOOD ORDERABLES Final Result [facility] [address] [place] [address], [place] [address] [employer] [facility] [employer] [address] [place] [address], (Nl2) [place] [address] * THINPREP PAP (06/23/2021 11:17 AM EDT) [...] historic and ?? current clinical information. ?? Tool Grinder Operator External : SEE COMMENT [employer] Comment: HJP, CT(ASCP) CT screening location: [address] [address] ??[id number] Interpretation/R esult: Negative for intraepithelial lesion or malignancy. [facility] LMP: NONE [facility]EN [facility] Prev. BX: NONE [facility]EN [facility] Prev. PAP: NONE [facility]IVEN [facility] SOURCE: None given [facility] Statement Of Adequacy: SEE COMMENT [facility] Comment: Satisfactory for evaluation. Endocervical/transformation zone component absent. Age and/or menstrual status not provided 06/23/2021 11:1 7 AM EDT Shadia Siddiqui [facility] PATHOLOGY ORDERABLES Final Result Performing Organization Address [facility] Co de Phone Number [facility] [address] * HPV mRNA E6/E7 (06/23/2021 11:17 AM EDT) HPV nRNA E6/E7 Not Detected Not Detected [facility] Comment: Methodology: Commutator Repairer-Mediated Amplification This assay detects E6/E7 viral messenger RNA (mRNA) from 14 high-risk HPV types (16,18,31,33,35,39,45,51,52,56,58,59,66,68). ? The analytical performance characteristics of this assay have been determined by [employer]. The modifications have not been cleared or approved by the FDA. This assay has been validated pursuant to the CLIA regulations and is used for clinical purposes. ?? For additional information, please refer to http://education.[employer]/faq/TKS787o6 (This link if provided for information/ educational purposes only.) 06/23/2021 11:1 7 AM EDT Shadia Siddiqui [facility] BLOOD ORDERABLES Makayla l Result Performing Organization Address [facility] de Phone Number [facility] [address] from Last 3 Months or Most Recently Relevant to Health Maintenance Insurance [facility] C3 Care Teams Research Technologist Relationship Specialty Start Date End Date Gilmer Alvarez MD [address] [place] [phone] PCP - General Internal Medicine 06/18/14
--- OUTSIDE RECORDS SUMMARY | 2024-11-19 14:28 | XMS_ITS | Encounter Summary ---
Author Organization [employer] Address [address] [place] [address] 7 [place] [address] Care Team Providers Care Security Assessor Name Role Phone Gilmer Alvarez MD Primary Care Provide r Encounter Details Date Type Department Care Team ([facility] st Contact Info) Description 09/08/2022 Telephone [facility] [address] [place], [place] [phone] Gilmer Alvarez MD [address] [place] [address] Social History Tobacco Use Types Packs/Day Years [...] as of this encounter Plan of Treatment Not on file documented as of this encounter Visit Diagnoses Not on filedocumented in this encounter Care Teams Security Assessor Relationship Specialty Start Date End Date Gilmer Alvarez MD [address] [place] [address] [phone] PCP - General Internal Medicine 06/18/14 documented as of this encounter
--- OUTSIDE RECORDS SUMMARY | 2024-11-19 14:28 | XMS_ITS | Encounter Summary ---
Author Organization [employer] Address [address] [facility] 7t [place] [address] Care Team Providers Care [place] Leverman Name Role Phone Gilmer Alvarez MD Primary Care Provide r Reason for Visit * Reason Onset Date Comments Chart Prep 11/07/2024 Encounter Details Date Type Department Care Team ([facility] st Contact Info) Description 11/07/2024 Telephone [facility]INE [address] [place], [place] [phone] Gilmer Alvarez MD [address] [place] [address] Chart Prep Social History Tobacco Use Types Packs/Day Years [...] encounter Miscellaneous Notes * Telephone Encounter - Sandra Murguia [place] - 11/07/2024 10:32 AM EST Chart Prep Labs: not applicable Images: done Vaccines due: Covid Due, PCV20 Due, and Flu Due Referrals: Neurology Completed Screenings: Colonoscopy and Mammogram Overdue care gaps: None Chart prep for upcoming appt with Dr.Esparza castaneda. LB documented in this encounter Plan of Treatment Not on file documented as of this encounter Visit Diagnoses Not on filedocumented in this encounter Additional Health Concerns Assessment Noted Time PHQ-9 Depression Total Score: 0 09/17/19 25 2:35 PM EST documented as of this encounter Care Teams [place]man Relationship Specialty Start Date End Date Gilmer Alvarez MD [address] [place] [address] PCP - General Internal Medicine 06/18/14 documented as of this encounter
--- OUTSIDE RECORDS SUMMARY | 2024-11-19 14:28 | XMS_ITS | Encounter Summary ---
Author Organization [employer] Address [address] [facility] [address] 7[address] [place] [address] Care Team Providers Care Security Systems Integrator Name Role Phone Gilmer Alvarez MD Primary Care Provide r Encounter Details Date Type Department Care Team (Latest Contact Info) Description 11/19/2024 Travel Social History Tobacco Use Types Packs/Day [...] documented as of this encounter Care Teams Security Systems Integrator Relationship Specialty Start Date End Date Gilmer Alvarez MD 230 [place] [address] PCP - General Internal Medicine 06/18/14 documented as of this encounter
--- OUTSIDE RECORDS SUMMARY | 2024-11-19 14:28 | XMS_ITS | Encounter Summary ---
Author Organization [employer] Address [address] [place] [address] 7t [place] [address] Care Team Providers Care Watch Parts Inspector Name Role Phone Gilmer Alavrez MD Primary Care Provide r Encounter Details Date Type Department Care Team ([facility] st Contact Info) Description 10/26/2022 Orders Only [facility] MED[facility]INE [address] [place], [place] [phone] Provider, MD Christo Social History Tobacco Use [...] on filedocumented in this encounter Care Teams Watch Parts Inspector Relationship Specialty Start Date End Date Gilmer Alvarez MD [address] [place] [address] PCP - General Internal Medicine 06/18/14 documented as of this encounter
--- OUTSIDE RECORDS SUMMARY | 2024-11-19 14:28 | XMS_ITS | Encounter Summary ---
Author Organization [employer] Address [address] [facility] 7t [place] [address] Care Team Providers Care Lens Shaper Grinder Name Role Phone Gilmer Alvarez MD Primary Care Provide r Encounter Details Date Type Department Care Team (Late st Contact Info) Description 10/16/2024 Orders Only [facility] [address] [place] [address] Provider, MD Christo Social History Tobacco Use [...] Procedure Name Priority Date/Time Associated Diagnosis Comments CT ABDOMEN PELVIS W CONTRAST Routine 10/15/2024 10:35 AM EST documented in this encounter Results * CT Abdomen Pelvis w/ Contrast (10/15/2024 10:35 AM EST) Anatomical Region Laterality Modality Body, Pelvis, Abdomen Computed T omography us Historical Provider MD TRAN CT PROCEDURES Final R esult documented in this encounter Visit Diagnoses Not on filedocumented in this encounter Additional Health Concerns Assessment Noted Time PHQ-9 Depression Total Score: 0 09/17/19 25 2:35 PM EST documented as of this encounter Care Teams Lens Shaper Grinder Relationship Specialty Start Date End Date Gilmer Alvarez MD [address] [place] [address] PCP - General Internal Medicine 06/18/14 documented as of this encounter
--- OUTSIDE RECORDS SUMMARY | 2024-11-19 14:28 | XMS_ITS | Encounter Summary ---
Author Organization [employer] Address [address] [facility] 7t [place] [address] Care Team Providers Care Visitor Services Assistant Name Role Phone Gilmer Alvarez MD Primary Care Provide r Reason for Visit * Reason Onset Date Comments Med Refill 08/10/2023 Encounter Details Date Type Department Care Team ([facility] st Contact Info) Description 08/10/2023 Telephone [facility]INE [address] [place], [place] [phone] Gilmer Alvarez MD [address] [place] [address] Med Refill Social History Tobacco Use Types [...] documented as of this encounter Care Teams Visitor Services Assistant Relationship Specialty Start Date End Date Gilmer Alvarez MD [address] [place] [phone] PCP - General Internal Medicine 06/18/14 documented as of this encounter
--- OUTSIDE RECORDS SUMMARY | 2024-11-19 14:28 | XMS_ITS | Encounter Summary ---
Author Organization [employer] Address [address] [facility] [address], [place] [address] Care Team Providers Care Leaf Sucker Operator Name Role Phone Gilmer Alvarez MD Primary Care Provide r Reason for Referral * PFT (Routine) - Authorized Specialty Diagnoses / Procedures Referred By Contac t Referred To Contact Diagnoses Subacute cough Procedures Pulmonary Function Test Gilmer Alvarez MD [address] [place] [address] Phone: tel: fax: [address] Phone: tel: fax: Referral ID Status Reason Start Date Expiration Date V isits Requested Visits Authorized [id number] Authorized 11/19/2024 11/19/2025 1 1 * Consultation (Routine) - Authorized Specialty Diagnoses / Procedures Referred By Contac t Referred To Contact Gastroenterology Diagnoses Right lower quadrant abdominal pain Colon cancer screening Gilmer Alvarez MD [address] [place] [address] Phone: tel: fax: [facility] [address] [place] [address] Phone: tel: fax: Referral ID Status Reason Start Date Expiration Date Visits Requested Visits Authorized [id number] Authorized Specialty Services Required 11/19/2024 11/19/2025 1 1 Reason for Visit * Reason Comments Hypertension Follow-up Pt reports having th e same abdominal pain that she went to the ED for, can't lift anything heavy without being in immediate discomfort Encounter Details Date Type Department Care Team (Late st Contact Info) Description 11/19/2024 11:15 AM EDT Office Visit [facility] MED[facility] [address] [place] [address] Gilmer Alvarez MD [address] [place], [place] [phone] Right lower quadrant abdominal pain (Primary Dx); Primary hypertension; Neck pain on left side; Subacute cough; Acute pain of left shoulder; Colon cancer screening; Preventative health care Social History Tobacco Use Types Packs/Day Years [...] 11/19/2024 11:0 2 AM EDT Oxygen Saturation - - Inhaled Oxygen Concentration - - Weight 76.1 kg (167 lb 12.8 oz) 025 11:02 AM EDT Height 154.9 cm (5' 1 ) 11/19/2024 11:0 2 AM EDT Body Mass Index 31.71 11/19/2024 11:02 AM EDT documented in this encounter Progress Notes * Gilmer Garcia MD - 11/19/2024 11:15 AM EDT SUBJECTIVE Purnima Webber is a 48 y.o. female who presents for Hypertension and Follow-up (Pt reports having the same abdominal pain that she went to the ED for, can't lift anything heavy without being in immediate discomfort ). Pt is here for a follow up, she was seen in the ER 10/15/2024 with RLL Q abdominal pain, diagnosed with enteritis still c/o pain Hypertension Pertinent negatives include no chest pain, headaches or shortness of breath. Abdominal Pain This is a recurrent problem. The current episode started more than 1 month ago. The pain is locatedin the RLQ. Pertinent negatives include no fever or headaches. Review of Systems Constitutional: Negative for fever. HENT: Negative for sore throat. Respiratory: Negative for cough and shortness of breath. Cardiovascular: Negative for chest pain. Gastrointestinal: Positive for abdominal pain. Neurological: Negative for headaches. No Known Allergies OBJECTIVE Vitals: 11/19/24 1102 11/19/24 1126 BP: (!) 152/92 138/76 BP Location: Left arm Left arm Patient Position: Sitting Sitting BP Cuff Size: Adult Pulse: 85 Resp: 20 Temp: 97.3 ??F (36.3 ??C) TempSrc: Temporal Weight: 167 lb 12.8 oz (76.1 kg) Height: 5' 1 (1.549 m) Physical Exam Vitals reviewed. Constitutional: Appearance: Normal appearance. HENT: Head: Normocephalic and atraumatic. Right Ear: External ear normal. Left Ear: External ear normal. Nose: Nose normal. Mouth/Throat: Mouth: Mucous membranes are moist. Eyes: Conjunctiva/sclera: Conjunctivae normal. Cardiovascular: Rate and Rhythm: Normal rate and regular rhythm. Pulmonary: Effort: Pulmonary effort is normal. Breath sounds: Normal breath sounds. Skin: General: Skin is warm. Neurological: Mental Status: She is alert. Mental status is at baseline. Assessment/Plan Problem List Items Addressed This Visit Right lower quadrant abdominal pain - Primary Patient seen in the ER, 10/15/2024 as [...] GI pt interested in colorectal cancer screen Relevant Orders Referral to Gastroenterology Comprehensive Metabolic Panel CBC auto differential Primary hypertension Pt here for a follow up On Amlodipine 2.5mg daily Follow up 3 months Neck pain on left side Pt with previous c/o left sided neck pain radiates to left shoulder and arm Exam: evidence of muscle spasm Plain films showed: Degenerative disc changes C5-6 disc level with mild posterior spondylosis. Pt sent for PT eval NCS was unremarkable Cough Pt with mild non productive cough, lungs CTA B. Plan: will obtain PFTs to tule out cough variant asthma Relevant Orders Pulmonary Function Test Acute pain of left shoulder Pt with previous c/o left sided neck pain radiates to left shoulder and arm Exam: evidence of muscle spasm Plain films showed: Unremarkable shoulder Pt referred for PT eval NCS was unremarkable Preventative health care Mammogram:Pt had a Mammogram 07/2022 that showed a complex-appearing cyst, deep upper outer aspect of the left breast, for which 6 month follow-up mammography and ultrasound was recommended. Repeat Mammogram 03/15/2023 showed a suspicious mass for which a breast biopsy was recommended Biopsy was done03/29/2023 . No evidence of malignancy, 6 month follow up was recommended She was referred back to the [facility] at [facility]. She was seen 04/03/2024 and reassured that there was no breast sources of her pain and it was likely referred pain Pap smear: Pap Smear: NL: 06/23/2021 Colorectal cancer screen: referred Other Visit Diagnoses Colon cancer screening Relevant Orders Referral to Gastroenterology documented in this encounter Miscellaneous Notes * Assessment & Plan Note - Gilmer Garcia MD - 11/19/2024 11:33 AM EDT Associated Problem(s): Cough Pt with mild non productive cough, lungs CTA B. Plan: will obtain PFTs to tule out cough variant asthma * Assessment & Plan Note - Gilmer Garcia MD - 11/19/2024 11:25 AM EDT Associated Problem(s): Preventative health care Mammogram:Pt had a Mammogram 07/2022 that showed a complex-appearing cyst, deep upper outer aspect of the left breast, for which 6 month follow-up mammography and ultrasound was recommended. Repeat Mammogram 03/15/2023 showed a suspicious mass for which a breast biopsy was recommended Biopsy was done03/29/2023 . No evidence of malignancy, 6 month follow up was recommended She was referred back to the Breast and wellness C[facility] at [facility]. She was seen 04/03/2024 and reassured that there was no breast sources of her pain and it was likely referred pain Pap smear: Pap Smear: NL: 06/23/2021 Colorectal cancer screen: referred * Assessment & Plan Note - Gilmer Garcia MD - 11/19/2024 11:19 AM EDT Associated Problem(s): Right lower quadrant abdominal pain Patient seen in the ER, 10/15/2024 as [...] GI pt interested in colorectal cancer screen * Assessment & Plan Note - Gilmer Garcia MD - 11/19/2024 11:15 AM EDT Associated Problem(s): Primary hypertension Pt here for a follow up On Amlodipine 2.5mg daily Follow up 3 months * Assessment & Plan Note - Gilmer Garcia MD - 11/19/2024 8:59 AM EDT Associated Problem(s): Acute pain of left shoulder Pt with previous c/o left sided neck pain radiates to left shoulder and arm Exam: evidence of muscle spasm Plain films showed: Unremarkable shoulder Pt referred for PT eval NCS was unremarkable * Assessment & Plan Note - Gilmer Garcia MD - 11/19/2024 8:58 AM EDT Associated Problem(s): Neck pain on left side Pt with previous c/o left sided neck pain radiates to left shoulder and arm Exam: evidence of muscle spasm Plain films showed: Degenerative disc changes C5-6 disc level with mild posterior spondylosis. Pt sent for PT eval NCS was unremarkable documented in this encounter Plan of Treatment Scheduled Orders Name Type Priority Associated Diagnoses Orde r Schedule Pulmonary Function Test PFT Routine Subacute cough Ordered: 11/19/2024 Scheduled Referrals Name Type Priority Associated Diagnoses Order Schedule Referral to Gastroenterology Outpatient Referral Routine Right lower quadrant abdominal pain Colon cancer screening Expected: 11/19/2024 (Approximate), Expires: 11/19/2025 documented as of this encounter Procedures Procedure Name Priority Date/Time Associated Diagnosis Comments CBC WITH AUTO DIFFERENTIAL Routine 11/19/2024 11:42 AM EDT Right lower quadrant abdominal pain COMPREHENSIVE METABOLIC PANEL Routine 11/19/2024 11:42 AM EDT Right lower quadrant abdominal pain documented in this encounter Results * (ABNORMAL) CBC auto differential (11/19/2024 11:42 AM EDT) White Blood Count 8.4 4.8 - 10.8 X10*3/uL [facility] Red Blood Count 5.17 4.20 - 5.50 X10*6/uL [facility] Hemoglobin 13.4 12.0 - 16.0 g/dl [facility] Hematocrit 43.2 37.0 - 47.0 % [facility] Mean Corpuscular Volume 83.6 80.0 - 98.0 fL [facility] Mean Corpuscular Hemoglobin 25.9(L) 27.0 - 33.0 pg [facility] Mean Corpuscular HGB Conc 31.0 31.0 - 35.0 g/dl [facility] Red Cell Distribution Width 15.3 11.0 - 16.0 % [facility] Platelet Count 381 160 - 400 X10*3/uL [facility] Mean Platelet Volume 11.5 9.4 - 12.3 fL [facility] Neutrophils Percent Auto 57.9 45 - 73 % [facility] Imm Gran Pct Auto 0.4 0.0 - 0.4 % [facility] Lymphocytes Percent Auto 32.5 20 - 40 % [facility] Monocytes Percent Auto 6.5 2 - 11 % [facility] Eosinophils Percent Auto 2.3 0 - 4 % [facility] Basophils Percent Auto 0.4 0 - 2 % [facility] NRBC Pct Auto 0.0 0.0 - 0.2 /100WBC [facility] Neutrophils Absolute Auto 4.9 2.0 - 8.3 x10*3/uL [facility] Imm Gran Abs Auto 0.03 0.00 - 0.03 X10*3/uL [facility] Lymphocytes Absolute Auto 2.7 1.2 - 4.9 X10*3/uL [facility] Monocytes Absolute Auto 0.6 0.1 - 1.2 X10*3/uL [facility] Eosinophils Absolute Auto 0.2 0.0 - 0.4 X10*3/uL [facility] Basophils Absolute Auto 0.0 0.0 - 0.2 X10*3/uL [facility] NRBC Abs Auto 0.000 0.0 - 0.012 X10*3/uL [facility] Blood Venous blood specimen / Unknown 11/19/2024 11:42 AM EDT 11/19/2024 1:08 PM EDT us Gilmer Garcia MD LAB BLOOD ORDERABLES Final Result [facility] [address] [place] [address] [phone] * (ABNORMAL) Comprehensive Metabolic Panel (11/19/2024 11:42 AM EDT) Sodium 140 135 - 145 mmol/L [facility] Potassium 5.0 3.3 - 5.1 mmol/L [facility] Chloride 107 96 - 108 mmol/L [facility] Carbon Dioxide 24 22 - 29 mmol/L [facility] Anion Gap 14 12 - 20 [facility] Urea Nitrogen (BUN) 11 9 - 16 mg/dL [facility] Creatinine, Serum 0.76 0.5 - 1.4 mg/dL [facility] Estimated Glomerular Filt Rate >60 [facility] Comment:Chronic Kidney Disea se: Estimated GFR < 60 mL/min/[id number] Kidney Disease: Estimated GFR < 15 mL/min/1.73m2 Glucose 83 60 - 115 mg/dL [facility] Calcium 9.8 8.4 - 10.2 mg/dL [facility] Bilirubin, Total 0.2 0.0 - 1.0 mg/dL [facility] Aspartate Amino Transferase 28 5 - 31 U/L [facility] Alanine Aminotransferase 21 0 - 31 U/L [facility] Total Protein 8.2(H) 6.5 - 8.0 g/dL [facility] Albumin Level 4.3 3.5 - 5.0 g/dL [facility] Alkaline Phosphatase 82 39 - 117 U/L [facility] Blood Venous blood specimen / Unknown 11/19/2024 11:42 AM EDT 11/19/2024 1:08 PM EDT us Gilmer Garcia MD LAB BLOOD ORDERABLES Final Result [facility] [address] [place] [address] [phone] documented in this encounter Visit Diagnoses Diagnosis Right lower quadrant abdominal pain- Primary Primary hypertension Unspecified essential hypertension Neck pain on left side Subacute cough Acute pain of left shoulder Colon cancer screening Special screening for malignant neoplasms, colon Preventative health care Routine general medical examination at a health care facility documented in this encounter Additional Health Concerns Assessment Noted Time PHQ-9 Depression Total Score: 0 09/17/19 25 2:35 PM EST documented as of this encounter Care Teams Leaf Sucker Operator Relationship Specialty Start Date End Date Gilmer Alvarez MD [address] [place] [address] PCP - General Internal Medicine 06/18/14 documented as of this encounter
--- OUTSIDE RECORDS SUMMARY | 2024-11-19 14:28 | XMS_ITS | Encounter Summary ---
Author Organization [employer] Address [address] [place] [address] Care Team Providers Care City Director Name Role Phone Gilmer Alvarez MD Primary Care Provide r Reason for Visit * Reason Comments Med Refill Encounter Details Date Type Department Care Team ([facility] st Contact Info) Description 11/06/2024 Refill [facility] [address] [place], [place] [phone] Leandra Lyon MD [address] [place], [place] [phone] Primary hypertension Social History Tobacco Use Types [...] documented as of this encounter Visit Diagnoses Diagnosis Primary hypertension Unspecified essential hypertension documented in this encounter Additional Health Concerns Assessment Noted Time PHQ-9 Depression Total Score: 0 09/17/19 25 2:35 PM EST documented as of this encounter Care Teams City Director Relationship Specialty Start Date End Date Gilmer Alvarez MD [address] [place] [address] PCP - General Internal Medicine 06/18/14 documented as of this encounter
--- OUTSIDE RECORDS SUMMARY | 2024-11-19 14:28 | XMS_ITS | Clinical Summary ---
Author Organization [facility] Address [address] [place] [address] Phone Care Team Providers Care [place] Laboratory Assistant Name Role Phone Gilmer Silverio MD Primary Care Provi kirsty Allergies Active Allergy Reactions Criticality Noted Date Comments Morphine Other High 03/31/2022 Chest tightness Medications diphenhydrAMINE (BENADRYL) 25 mg capsule Take 1 capsule (25 mg total) by mouth every 4 (four) hours if needed for itching for up to 4 days. 16 capsule 08/07/2024 Active predniSONE (DELTASONE) 20 mg tablet Take 3 tablets (60 mg total) by mouth 1 (one) time each day. 15 tablet 09/25/2024 Active Active Problems No known active problems Encounters Date Type Department Care Team Description 10/15/2024 6:40 PM EST - 10/15/2024 10:38 PM [facility] Emergency [address] [place] [phone] Enteritis (Primary Dx) Discharge Disposition: Home or Self Care 09/25/2024 6:20 PM EST - 09/25/2024 10:38 PM [facility] Emergency [address] [place] [phone] Yogi Carrillo DO Acute cough (Primary Dx) Discharge Disposition: Home or Self Care from Last 3 Months Medical History Medical History Date Comments Migraines Asthma Hypertension Social History Tobacco Use Types Packs/Day Years Used Date Smoking Tobacco: Never Smokeless Tobacco: Never Tobacco Cessation:Counseling Given: Not Answered Alcohol Use Standard Drinks/Week Comments Never 0 (1 standard drink = 0.6 oz pur e alcohol) Comments Unknown Sex and Gender Information Value Date Recorded Sex Assigned at Female 08/07/2024 10:56 AM EST Legal Sex Female 1:18 AM EST Gender Identity Female 08/07/2024 10:56 AM EST Sexual Orientation Straight 08/07/2024 10 :56 AM EST Obstetrics History Last Filed Vital Signs Vital Sign Reading Time Taken Comments Blood Pressure 131/78 10/15/2024 6:56 PM EST Pulse 65 10/15/2024 6:56 PM EST Temperature 36.7 ??C (98.1 ??F) 10/15/2024 6:56 PM ES T Respiratory Rate 16 10/15/2024 6:56 PM EST Oxygen Saturation 100% 10/15/2024 6:56 PM EST Inhaled Oxygen Concentration - - Weight 73.5 kg (162 lb) 10/15/2024 4:59 PM EST Height 154.9 cm (5' 1 ) 10/15/2024 4:59 PM EST Body Mass Index 30.61 10/15/2024 4:59 PM EST Plan of Treatment Health Maintenance Due Date Last Done Comments Breast Cancer Screening 1975 Pneumococcal Vaccine: Pediatrics (0 to 5 Years) and At-Risk Patients (6 to 64 Years) (1 of 2 - PCV) 12/04/1994 Cervical Cancer Screening: P ap Smear 12/04/1996 Cholesterol Screening (Lipid Panel) 08/14/2022 Colorectal Cancer Screening: Colonoscopy 08/14/2022 Social Influencers of Health Screening 08/14/2022 COVID-19 Vaccine (4 - 2023-2 5 season) 2024 09/17/2021, 02/23/2021, 01/26/2021 Influenza Vaccine (#1) 2024 06/23/2021 Depression Screening 09/17/2025 09/17/2024 Hypertension/CHF/CAD Annual BMP Blood Test 10/15/2025 10/15/2024, 09/25/2024 DTaP,Tdap,and Td Vaccines (2 - Td [...] patient's age to complete this topic Meningococcal B Vacine Aged Out No lo nger eligible based on patient's age to complete this topic RSV Immunization Patients Under 20 months Aged Out No longer eligible b ased on patient's age to complete this topic Varicella Vaccines Aged Out No longer eligible based on patient's age to complete this topic Procedures Procedure Name Priority Date/Time Associated Diagnosis Comments CT ABDOMEN PELVIS W CONTRAST STAT 10/15/2024 9:57 PM EST US PELVIS TRANSVAGINAL NON OB STAT 10/15/2024 9:45 PM EST POC , URINE DIAGNOSTIC STAT 10/15/2024 8:22 PM EST GREGG URINE CULTURE TUBE STAT 10/15/2024 8:21 PM EST URINALYSIS WITH REFLEX MICROSCOPIC AND CULTURE STAT 10/15/2024 8:21 PM EST URINALYSIS WITH REFLEX MICROSCOPIC AND CULTURE STAT 10/15/2024 8:21 PM EST CBC WITH AUTO DIFFERENTIAL STAT 10/15/2024 5:35 PM EST LIPASE STAT 10/15/2024 5:35 PM EST COMPREHENSIVE METABOLIC PANEL STAT 10/15/2024 5:35 PM EST CBC AND DIFFERENTIAL STAT 10/15/2024 5:35 PM EST XR CHEST 2 VIEWS STAT 09/25/2024 9:20 PM EST COMPREHENSIVE METABOLIC PANEL STAT 09/25/2024 7:31 PM EST COMPLETE BLOOD COUNT STAT 09/25/2024 7:31 PM EST RESPIRATORY VIRUS PANEL MOLECULAR STUDY STAT 09/25/2024 7:25 PM EST from Last 3 Months Results * CT Abdomen Pelvis w Contrast (10/15/2024 9:57 PM EST) Anatomical Region Laterality Modality Body Computed Tomogra phy 10/15/2024 10:2 3 PM EST Impressions 10/15/2024 10:23 PM EST Impression: Findings suggest mild enteritis. The appendix is normal. There is no free air, pneumatosis or abscess. This document has been electronically signed by: Antoni Oneil MD on 10/15/2024 22:23:49 Narrative 10/15/2024 10:23 PM EST INDICATION: abd distension, RLQ point tender/rebound CT abdomen and pelvis with contrast Comparison: None Findings: No consolidation or effusion. The liver, gallbladder, spleen, adrenal glands and pancreas are unremarkable. The kidneys demonstrate neither obstruction nor suspicious lesion. The bladder is decompressed. Uterus and adnexa are within normal limits. Normal appendix. Gas and fluid throughout nondistended small and large bowel with engorgement of the vasa recta. Trace free fluid in the pelvis. No acute osseous finding. Procedure Note Antoni Oneil MD - 10/15/2024 INDICATION: abd distension, RLQ point tender/rebound CT abdomen and pelvis with contrast Comparison: None Findings: No consolidation or effusion. The liver, gallbladder, spleen, adrenal glands and pancreas are unremarkable. The kidneys demonstrate neither obstruction nor suspicious lesion. The bladder is decompressed. Uterus and adnexa are within normal limits. Normal appendix. Gas and fluid throughout nondistended small and large bowel with engorgement of the vasa recta. Trace free fluid in the pelvis. No acute osseous finding. IMPRESSION: Impression: Findings suggest mild enteritis. The appendix is normal. There is nofree air, pneumatosis or abscess. This document has been electronically signed by: Antoni Oneil MD on 10/15/2024 22:23:49 us Camryn PERDOMO [facility] CT PROCEDURES Final Result * US Pelvis Transvaginal Non OB (10/15/2024 9:45 PM EST) Anatomical Region Laterality Modality Body Ultrasound 10/15/2024 10:1 3 PM EST Impressions 10/15/2024 10:13 PM EST No acute findings. Possible very small uterine fibroid. This document has been electronically signed by: Antoni Oneil MD on 10/15/2024 22:13:16 Narrative 10/15/2024 10:13 PM EST INDICATION: RLQ tenderness, r/o torsion US pelvis transvaginal Comparison: None Findings: Transvaginal scanning performed. The uterus is 8.1 cm length. Small rounded echogenic focus abutting the fundal endometrium likely a small fibroid measuring up to 9 mm. No endometrial lesion, 10 mm thickness. Right ovary 2.5 x 1.5 x 2.0 cm. Left ovary 2.1 x 1.7 x 1.4 cm. Normal color Doppler of both ovaries. No free fluid. Procedure Note Antoni Oneil MD - 10/15/2024 INDICATION: RLQ tenderness, r/o torsion US pelvis transvaginal Comparison: None Findings: Transvaginal scanning performed. The uterus is 8.1 cm length. Small rounded echogenic focus abutting the fundal endometrium likely a small fibroid measuring up to 9 mm. No endometrial lesion, 10 mm thickness. Right ovary 2.5 x 1.5 x 2.0 cm. Left ovary 2.1 x 1.7 x 1.4 cm. Normal color Doppler of both ovaries. No free fluid. IMPRESSION: No acute findings. Possible very small uterine fibroid. This document has been electronically signed by: Antoni Oneil MD on 10/15/2024 22:13:16 us Camryn PERDOMO [facility] US PROCEDURES Final Result * POC , urine manually resulted (10/15/2024 8:22 PM EST) HCG, Ur POC Negative Negative Urine Urine specimen obtained by clean catch procedure / Unknown 10/15/2024 8:22 PM EST Brad De La Rosa MD POINT OF CARE TEST ENTER/ED IT ORDERABLES Final Result * Urinalysis with reflex microscopic and culture (10/15/2024 8:21 PM EST) Pathologist [facility] Specific [place] Urine 1.024 1.003 - 1.030 LAB URINALYSIS - AUTOMATED METHOD 10/15/2024 8:39 PM [facility] pH, Urine 6.0 5.0 - 8.0 pH LAB URINALYSIS - AUTOMATED METHOD 10/15/2024 8:39 PM [facility] Leukocytes, Urine Negative Negative LAB URINALYSIS - AUTOMATED METHOD 10/15/2024 8:39 PM [facility] Nitrite, Urine Negative Negative LAB URINALYSIS - AUTOMATED METHOD 10/15/2024 8:39 PM [facility] Protein, Urine Negative <=Trace mg/dL LAB URINALYSIS - AUTOMATED METHOD 10/15/2024 8:39 PM [facility] Glucose, Urine Negative Negative mg/dL LAB URINALYSIS - AUTOMATED METHOD 10/15/2024 8:39 PM [facility] Ketones, Urine Negative Negative mg/dL LAB URINALYSIS - AUTOMATED METHOD 10/15/2024 8:39 PM [facility] Urobilinogen, Urine 1.0 0.2 - 1.0 mg/dL LAB URINALYSIS - AUTOMATED METHOD 10/15/2024 8:39 PM [facility] Bilirubin, Urine Negative Negative LAB URINALYSIS - AUTOMATED METHOD 10/15/2024 8:39 PM [facility] Blood, Urine Negative Negative LAB URINALYSIS - AUTOMATED METHOD 10/15/2024 8:39 PM EST [facility] Urine Urine specimen obtained by clean catch procedure / Unknown Non-blood Collection / Unknown 10/15/2024 8:21 PM EST 10/15/2024 8:29 PM EST Brad De La Rosa MD LAB URINE ORDERABLES Final Result [facility] [address] [place] [address], [place] [phone] * [place] urine culture tube (10/15/2024 8:21 PM EST) Pathologist [facility] Extra Tube Hold for add-ons. 10/15/2024 10:02 PM EST [facility] Comment:Auto resulted. Urine Urine specimen obtained by clean catch procedure / Unknown Non-blood Collection / Unknown 10/15/2024 8:21 PM EST 10/15/2024 8:29 PM EST Brad De La Rosa MD LAB URINE ORDERABLES Final Result Performing Organization Address City/[facility]/ZIP Co de Phone Number [facility] [address] [place] [address], [place] [phone] * (ABNORMAL) CBC auto differential (10/15/2024 5:35 PM EST) WBC 11.0(H) 4.8 - 10.8 K/[facility] LAB HEMETOLOGY METHOD 10/15/2024 6:21 PM [facility] RBC 5.20(H) 3.80 - 4.80 M/mcL LAB HEMETOLOGY METHOD 10/15/2024 6:21 PM [facility] Hemoglobin 13.5 11.5 - 16.0 g/dL LAB HEMETOLOGY METHOD 10/15/2024 6:21 PM [facility] Hematocrit 43.0 35.0 - 47.0 % LAB HEMETOLOGY METHOD 10/15/2024 6:21 PM [facility] MCV 83.3 79.0 - 98.0 FL LAB HEMETOLOGY METHOD 10/15/2024 6:21 PM [facility] MCH 26.2(L) 27.0 - 32.0 pcg LAB HEMETOLOGY METHOD 10/15/2024 6:21 PM [facility] MCHC 31.4(L) 32.0 - 37.0 g/dL LAB HEMETOLOGY METHOD 10/15/2024 6:21 PM [facility] RDW 15.9(H) 11.0 - 15.0 % LAB HEMETOLOGY METHOD 10/15/2024 6:21 PM [facility] Platelets 302 130 - 400 K/mcL LAB HEMETOLOGY METHOD 10/15/2024 6:21 PM [facility] MPV 11.1(H) 7.0 - 11.0 FL LAB HEMETOLOGY METHOD 10/15/2024 6:21 PM [facility] NRBC 0.0 <1.0 % LAB HEMETOLOGY METHOD 10/15/2024 6:21 PM [facility] NRBC Absolute 0.00 <0.10 K/mcL LAB HEMETOLOGY METHOD 10/15/2024 6:21 PM [facility] Neutrophils Relative 58.8 % LAB HEMETOLOGY METHOD 10/15/2024 6:21 PM [facility] Lymphocytes Relative 30.5 % LAB HEMETOLOGY METHOD 10/15/2024 6:21 PM [facility] Monocytes Relative 7.6 % LAB HEMETOLOGY METHOD 10/15/2024 6:21 PM [facility] Eosinophils Relative 2.2 % LAB HEMETOLOGY METHOD 10/15/2024 6:21 PM [facility] Basophils Relative 0.5 % LAB HEMETOLOGY METHOD 10/15/2024 6:21 PM EST [facility] Immature Granulocytes Relative 0.4 % LAB HEMETOLOGY METHOD 10/15/2024 6:21 PM EST [facility] Neutrophils Absolute 6.46 1.50 - 7.00 K/mcL LAB HEMETOLOGY METHOD 10/15/2024 6:21 PM [facility] Lymphocytes Absolute 3.34 1.00 - 5.00 K/mcL LAB HEMETOLOGY METHOD 10/15/2024 6:21 PM [facility] Monocytes Absolute 0.83 0.20 - 1.00 K/mcL LAB HEMETOLOGY METHOD 10/15/2024 6:21 PM [facility] Eosinophils Absolute 0.24 0.00 - 0.50 K/mcL LAB HEMETOLOGY METHOD 10/15/2024 6:21 PM [facility] Basophils Absolute 0.05 0.00 - 0.20 K/mcL LAB HEMETOLOGY METHOD 10/15/2024 6:21 PM [facility] Immature Granulocytes Absolute 0.04(H) 0.00 - 0.03 K/mcL LAB HEMETOLOGY METHOD 10/15/2024 6:21 PM [facility] Blood Venous blood specimen / Unknown Venipuncture / Unknown 10/15/2024 5:35 PM EST 10/15/2024 6:13 PM EST us Brad De La Rosa MD LAB BLOOD ORDERABLES Final Result [facility] [address] [place] [address], * Lipase (10/15/2024 5:35 PM EST) Lipase 38 13 - 75 unit/L LAB CHEMISTRY METHOD 10/15/2024 6:55 PM EST [facility] Blood Venous blood specimen / Unknown Venipuncture / Unknown 10/15/2024 5:35 PM EST 10/15/2024 6:13 PM EST us Brad De La Rosa MD LAB BLOOD ORDERABLES Final Result [facility] [address] [place] [address], * Comprehensive metabolic panel (10/15/2024 5:35 PM EST) Only the most recent of2 resultswithin the time period is included. Sodium 137 133 - 145 mmol/L LAB CHEMISTRY METHOD 10/15/2024 7:04 PM [facility] Potassium 4.8 3.5 - 5.5 mmol/L LAB CHEMISTRY METHOD 10/15/2024 7:04 PM [facility] Chloride 104 96 - 110 mmol/L LAB CHEMISTRY METHOD 10/15/2024 7:04 PM [facility] CO2 30 21 - 32 mmol/L LAB CHEMISTRY METHOD 10/15/2024 7:04 PM [facility] Anion Gap 3 3 - 11 LAB CHEMISTRY METHOD 10/15/2024 7:04 PM [facility] Glucose 83 70 - 100 mg/dL LAB CHEMISTRY METHOD 10/15/2024 7:04 PM [facility] BUN 13 5 - 25 mg/dL LAB CHEMISTRY METHOD 10/15/2024 7:04 PM [facility] Creatinine 0.89 0.50 - 1.10 mg/dL LAB CHEMISTRY METHOD 10/15/2024 7:04 PM [facility] eGFR 80 >=60 mL/min/1. 73m2 LAB CHEMISTRY METHOD 10/15/2024 7:04 PM [facility] Comment:Calculation based on the??Chronic Kidney Disease Epidemiology Collaboration (CKD-EPI) equation refit??without adjustment for race. BUN/Creatinine Ratio 14.6 LAB CHEMISTRY METHOD 10/15/2024 7:04 PM [facility] Calcium 9.7 8.5 - 10.5 mg/dL LAB CHEMISTRY METHOD 10/15/2024 7:04 PM [facility] AST (SGOT) 24 10 - 42 unit/L LAB CHEMISTRY METHOD 10/15/2024 7:04 PM [facility] ALT (SGPT) 32 10 - 60 unit/L LAB CHEMISTRY METHOD 10/15/2024 7:04 PM [facility] Alkaline Phosphatase 88 42 - 121 unit/L LAB CHEMISTRY METHOD 10/15/2024 7:04 PM [facility] Total Protein 7.7 6.0 - 8.0 g/dL LAB CHEMISTRY METHOD 10/15/2024 7:04 PM [facility] Albumin 3.8 3.2 - 5.0 g/dL LAB CHEMISTRY METHOD 10/15/2024 7:04 PM [facility] Total Bilirubin 0.3 0.0 - 1.4 mg/dL LAB CHEMISTRY METHOD 10/15/2024 7:04 PM [facility] Blood Venous blood specimen / Unknown Venipuncture / Unknown 10/15/2024 5:35 PM EST 10/15/2024 6:13 PM EST Brad De La Rosa MD LAB BLOOD ORDERABLES Final Result [facility] [address] [place] [address], * XR Chest 2 Views (09/25/2024 9:20 PM EST) Anatomical Region Laterality Modality Body Radiographic Rebecca ging 09/26/2024 8:31 AM EST Impressions 09/26/2024 8:31 AM EST Normal chest radiographs. -------- FINAL REPORT -------- Dictated By: Enmanuel Friend Dictated Date: 09/26/2024 08:31 ET Assigned Physician: Enmanuel Friend Reviewed and Electronically Signed By: Enmanuel Friend Signed Date: 09/26/2024 08:31 ET Workstation ID: [id number] Transcribed By: Self Edit Transcribed Date: 09/26/2024 [...] Signed Date: 09/26/2024 08:31 ET Workstation ID: [id number] Transcribed By: Self Edit Transcribed Date: 09/26/2024 08:31 ET Lauri PERDOMO IMG XR PROCEDURES Final Resu lt * (ABNORMAL) CBC (09/25/2024 7:31 PM EST) WBC 18.7(H) 4.8 - 10.8 K/[facility] LAB HEMETOLOGY METHOD 09/25/2024 8:08 PM EST [facility] RBC 5.10(H) 3.80 - 4.80 M/[facility] LAB HEMETOLOGY METHOD 09/25/2024 8:08 PM EST [facility] Hemoglobin 13.4 11.5 - 16.0 g/dL LAB HEMETOLOGY METHOD 09/25/2024 8:08 PM EST [facility] Hematocrit 42.1 35.0 - 47.0 % LAB HEMETOLOGY METHOD 09/25/2024 8:08 PM [facility] MCV 82.9 79.0 - 98.0 FL LAB HEMETOLOGY METHOD 09/25/2024 8:08 PM [facility] MCH 26.4(L) 27.0 - 32.0 pcg LAB HEMETOLOGY METHOD 09/25/2024 8:08 PM [facility] MCHC 31.8(L) 32.0 - 37.0 g/dL LAB HEMETOLOGY METHOD 09/25/2024 8:08 PM [facility] RDW 15.7(H) 11.0 - 15.0 % LAB HEMETOLOGY METHOD 09/25/2024 8:08 PM [facility] Platelets 427(H) 130 - 400 K/mcL LAB HEMETOLOGY METHOD 09/25/2024 8:08 PM [facility] MPV 11.7(H) 7.0 - 11.0 FL LAB HEMETOLOGY METHOD 09/25/2024 8:08 PM [facility] NRBC 0.0 <1.0 % LAB HEMETOLOGY METHOD 09/25/2024 8:08 PM [facility] NRBC Absolute 0.00 <0.10 K/mcL LAB HEMETOLOGY METHOD 09/25/2024 8:08 PM [facility] Blood Venous blood specimen / Unknown Venipuncture / Unknown 09/25/2024 7:31 PM EST 09/25/2024 7:57 PM EST us Chio Ritchie DO LAB BLOOD ORDERABLES Makayla l Result [facility] [address] [place] [address], * Respiratory virus panel molecular study (09/25/2024 7:25 PM EST) Pathologist [facility] Adenovirus Detection by PCR Not Detected Not Detected LAB MICROBIOLOGY METHOD 09/25/2024 9:18 PM EST [facility] Influenza A PCR Not Detected Not Detected LAB MICROBIOLOGY METHOD 09/25/2024 9:18 PM EST [facility] Influenza B PCR Not Detected Not Detected LAB MICROBIOLOGY METHOD 09/25/2024 9:18 PM EST [facility] Coronavirus 229E Not Detected Not Detected LAB MICROBIOLOGY METHOD 09/25/2024 9:18 PM EST [facility] Coronavirus HKU1 Not Detected Not Detected LAB MICROBIOLOGY METHOD 09/25/2024 9:18 PM [facility] Coronavirus OC43 Not Detected Not Detected LAB MICROBIOLOGY METHOD 09/25/2024 9:18 PM EST [facility] Coronavirus NL63 Not Detected Not Detected LAB MICROBIOLOGY METHOD 09/25/2024 9:18 PM EST [facility] Parainfluenza Virus 1 Not Detected Not Detected LAB MICROBIOLOGY METHOD 09/25/2024 9:18 PM EST [facility] Parainfluenza Virus 2 Not Detected Not Detected LAB MICROBIOLOGY METHOD 09/25/2024 9:18 PM [facility] Parainfluenza Virus 3 Not Detected Not Detected LAB MICROBIOLOGY METHOD 09/25/2024 9:18 PM EST [facility] Parainfluenza Virus 4 Not Detected Not Detected LAB MICROBIOLOGY METHOD 09/25/2024 9:18 PM EST [facility] RSV PCR Not Detected Not Detected LAB MICROBIOLOGY METHOD 09/25/2024 9:18 PM EST [facility] Human Metapneumovirus A and B Not Detected Not Detected LAB MICROBIOLOGY METHOD 09/25/2024 9:18 PM EST [facility] Rhinovirus/Entero virus Not Detected Not Detected LAB MICROBIOLOGY METHOD 09/25/2024 9:18 PM EST [facility] Bordetella pertussis Not Detected Not Detected LAB MICROBIOLOGY METHOD 09/25/2024 9:18 PM EST [facility] Bordetella parapertussis Not Detected Not Detected LAB MICROBIOLOGY METHOD 09/25/2024 9:18 PM EST [facility] Mycoplasma pneumo by PCR Not Detected Not Detected LAB MICROBIOLOGY METHOD 09/25/2024 9:18 PM EST [facility] Chlamydia pneumoniae Not Detected Not Detected LAB MICROBIOLOGY METHOD 09/25/2024 9:18 PM EST [facility] SARS COV-2 Not Detected Not Detected LAB MICROBIOLOGY METHOD 09/25/2024 9:18 PM [facility] Swab Both anterior nares / Unknown Non-blood Collection / Unknown 09/25/2024 7:25 PM EST 09/25/2024 8:17 PM EST [facility] - 09/25/2024 9:18 PM EST Testing was performed using the [employer] Respiratory Pathogen PCR Assay. All results must [...] detection. Yogi Carrillo DO LAB MICROBIOLOGY - GENERAL ORD ERABLES Final Result [facility] [address] [place] [address], from Last 3 Months Insurance MEDICAID - [place] Care Teams [place] Laboratory Assistant Relationship Specialty Start Date End Date Gilmer Silverio MD [address] [place] [address] PCP - General Internal Medicine 08/07/24
--- OUTSIDE RECORDS SUMMARY | 2024-11-19 14:28 | XMS_ITS | Encounter Summary ---
Author Organization [employer] Address [address] [place] [address] Care Team Providers Care Biofuels Production Manager Name Role Phone Gilmer Alvarez MD Primary Care Provide r Reason for Visit * Reason Onset Date Comments Med Refill 04/26/2024 Encounter Details Date Type Department Care Team ([facility] st Contact Info) Description 04/26/2024 Telephone [facility] [address] [place], [place] [phone] Gilmer Alvarez MD [address] [place] [address] Med Refill Social History Tobacco Use Types [...] by PCP. * Telephone Encounter - Jey Garcai - 04/26/2024 10:01 AM EDT TC from pt requesting medication refill. Medications needing refill : topiramate 50 MG tablet To be sent to: [facility] - [place], [place] - [address] documented in this encounter Plan of Treatment Not on file documented as of this encounter Visit Diagnoses Not on filedocumented in this encounter Additional Health Concerns Assessment Noted Time PHQ-9 Depression Total Score: 0 04/06/20 23 3:23 PM EDT documented as of this encounter Care Teams Biofuels Production Manager Relationship Specialty Start Date End Date Gilmer Alvarez MD [address] [place] [address] PCP - General Internal Medicine 06/18/14 documented as of this encounter
== END 2024-11-19 11:41 | disposition home or self-care (01) ==
LOC: HO.HHCL 11:40
PROVIDERS: Visit Provider Internal Medicine
DX: R10.31 Right lower quadrant pain (principal)
CPT/HCPCS: 36415; 80053; 85025

== ENCOUNTER 2025-03-20 11:52 | Outpatient (REF) | payer MEDICAID, SELFPAY ==
--- OUTSIDE RECORDS SUMMARY | 2025-03-20 11:30 | XMS_ITS | Encounter Summary ---
Author Organization [employer] Address [address] [place] [address] Care Team Providers Care Lead Painter Name Role Phone Gilmer Alvarez MD Primary Care Provide r Reason for Visit * Reason Comments Hypertension Follow-up Pt noticed that she is experiencing an odd, sharp pain that runs from her lower back to the back of her knee and it stops her from being able to do what she needs to do, has been going on for about 3 weeks. Hasn't fallen or hit herself. Encounter Details Date Type Department Care Team (Late st Contact Info) Description 03/20/2025 11:30 AM EDT Office Visit [facility] [address] [place] [address] Gilmer Alvarez MD [address] [place] [address] Primary hypertension (Primary Dx); Subacute cough; Right lower quadrant abdominal pain; Migraine without status migrainosus, not intractable, unspecified migraine type; Preventative health care; Concern about STI in female without diagnosis Social History Tobacco Use Types Packs/Day Years [...] Sign Reading Time Taken Comments Blood Pressure 130/88 03/20/2025 11:33 AM EDT Pulse 80 03/20/2025 11:24 AM EDT Temperature 36.6 C (97.8 F) 03/20/2025 11:24 AM EDT Respiratory Rate 20 03/20/2025 11:24 AM EDT Oxygen Saturation 98% 03/20/2025 11:24 AM EDT Inhaled Oxygen Concentration - - Weight 75.8 kg (167 lb 3.2 oz) 03/20/2025 11:24 AM EDT Height 154.9 cm (5' 1 ) 03/20/2025 11:24 AM EDT Body Mass Index 31.59 03/20/2025 11:24 AM EDT documented in this encounter Progress Notes * Gilmer Garcia MD - 03/20/2025 11:30 AM EDT SUBJECTIVE Purnima Webber is a 49 y.o. female who presents for Hypertension and Follow-up (Pt noticed that she isexperiencing an odd, sharp pain that runs from her lower back to the back of her knee and it stops her from being able to do what she needs to do, has been going on for about 3 weeks. Hasn't fallen or hit herself. ). Hypertension This is a chronic problem. Pertinent negatives include no chest pain, headaches or shortness of breath. Review of Systems Constitutional: Negative for fever. HENT: Negative for sore throat. Respiratory: Negative for cough and shortness of breath. Cardiovascular: Negative for chest pain. Gastrointestinal: Negative for abdominal pain. Neurological: Negative for headaches. Allergies[1] OBJECTIVE Vitals: 03/20/25 1124 03/20/25 1133 BP: (!) 130/94 130/88 BP Location: Left arm Left arm Patient Position: Sitting Sitting BP Cuff Size: Adult Adult Pulse: 80 Resp: 20 Temp: 97.8 ??F (36.6 ??C) TempSrc: Temporal SpO2: 98% Weight: 167 lb 3.2 oz (75.8 kg) Height: 5' 1 (1.549 m) Physical [...] Assessment/Plan Problem List Items Addressed This Visit Primary hypertension - Primary Pt here for a follow up On Amlodipine 2.5mg daily Follow up 3 months Cough Pt with mild non productive cough, lungs CTA B. PFTs 12/20/2024 was Normal Chest x-ray 09/25/2024 Normal ([facility]) Right lower quadrant abdominal pain Patient seen in [facility] ED on 03/14/25 for epigastric and left upper quadrant abdominal pain for 2 to 3days. Denies fever, shortness of breath, hematochezia, or melena. CT scan completed which was unremarkable. Suspected GERD-was discharged with sucralfate and omeprazole. Seen by GI 03/18/2025 scheduled for Colonoscopy Migraine Relevant Medications SUMAtriptan (Imitrex) 50 MG tablet Preventative health care Mammogram:Pt had a Mammogram [...] to the Breast and wellness Ctr at [facility]. She was seen 04/03/2024 and reassured that there was no breast sources of her pain and it was likely referred pain Pap smear: Pap Smear: NL: 12/11/2024 ([facility] ) Colorectal cancer screen: referred Other Visit Diagnoses Concern about STI in female without diagnosis Relevant Orders Chlamydia/N. Gonorrhoeae, PCR, Urine Hepatitis B Core Antibody, Total Hepatitis B Surface Antibody, Qualitative Hepatitis B surface antigen, EIA Hepatitis C Antibody with Reflex to HCV, RNA, Quantitative, Real-Time PCR HIV-1/2 Antigen and Antibodies, Fourth Generation, with Reflexes Syphilis Screen No future appointments. [1] No Known Allergies documented in this encounter Miscellaneous Notes * Addendum Note - Gilmer Garcia MD - 03/20/2025 11:30 AM EDTAddended by: GILMER FLOWERS on: 03/20/2025 11:44 AM Modules accepted: Orders * Assessment & Plan Note - Gilmer Garcia MD - 03/20/2025 11:29 AM EDT Associated Problem(s): Primary hypertension Pt here for a follow up On Amlodipine 2.5mg daily Follow up 3 months * Assessment & Plan Note - Gilmer Garcia MD - 03/20/2025 11:29 AM EDT Associated Problem(s): Right lower quadrant abdominal pain Patient seen in [facility] ED on 03/14/25 for epigastric and left upper quadrant abdominal pain for 2 to 3days. Denies fever, shortness of breath, hematochezia, or melena. CT scan completed which was unremarkable. Suspected GERD-was discharged with sucralfate and omeprazole. Seen by GI 03/18/2025 scheduled for Colonoscopy * Assessment & Plan Note - Gilmer Garcia MD - 03/20/2025 11:26 AM EDT Associated Problem(s): Cough Pt with mild non productive cough, lungs CTA B. PFTs 12/20/2024 was Normal Chest x-ray 09/25/2024 Normal ([facility]) * Assessment & Plan Note - Gilmer Garcia MD - 03/20/2025 11:24 AM EDT Associated Problem(s): Preventative health care [...] to the Breast and wellness Ctr at [facility]. She was seen 04/03/2024 and reassured that there was no breast sources of her pain and it was likely referred pain Pap smear: Pap Smear: NL: 12/11/2024 ([facility] ) Colorectal cancer screen: referred documented in this encounter Plan of Treatment Scheduled Orders Name Type Priority Associated Diagnoses Orde r Schedule Hepatitis B Core Antibody, Total Lab Routine Concern about STI in female without diagnosis Expected: 03/20/2025 (Approximate), Expires: 03/20/2026 Hepatitis B Surface Antibody, Qualitative Lab Routine Concern about STI in female without diagnosis Expected: 03/20/2025 (Approximate), Expires: 03/20/2026 Hepatitis B surface antigen, EIA Lab Routine Concern about STI in female without diagnosis Expected: 03/20/2025 (Approximate), Expires: 03/20/2026 Hepatitis C Antibody with Reflex to HCV, RNA, Quantitative, Real-Time PCR Lab Routine Concern about STI in female without diagnosis Expected: 03/20/2025 (Approximate), Expires: 03/20/2026 HIV-1/2 Antigen and Antibodies, Fourth Generation, with Reflexes Lab Routine Concern about STI in female without diagnosis Expected: 03/20/2025 (Approximate), Expires: 03/20/2026 Syphilis Screen Lab Routine Concern about STI in female without diagnosis Expected: 03/20/2025 (Approximate), Expires: 03/20/2026 Chlamydia/N. Gonorrhoeae, PCR, Urine Lab Routine Concern about STI in female without diagnosis Ordered: 03/20/2025 documented as of this encounter Visit Diagnoses Diagnosis Primary hypertension- Primary Unspecified essential hypertension Subacute cough Right lower quadrant abdominal pain Migraine without status migrainosus, not intractable, unspecified migraine type Preventative health care Routine general medical examination at a health care facility Concern about STI in female without diagnosis documented in this encounter Additional Health Concerns Assessment Noted Time PHQ-9 Depression Total Score: 0 09/17/19 25 2:35 PM EST documented as of this encounter Care Teams Lead Painter Relationship Specialty Start Date End Date Gilmer Alvarez MD [address] [place] [phone] PCP - General Internal Medicine 06/18/14 documented as of this encounter
--- OUTSIDE RECORDS SUMMARY | 2025-03-20 12:22 | XMS_ITS | Encounter Summary ---
Author Organization [employer] Address [address] [place] [address] Care Team Providers Care Health Promotion Officer Name Role Phone Gilmer Silverio MD Primary Care Provi kirsty Encounter Details Date Type Department Care Team (Latest Contact Info) Description 12/11/2024 Lab Requisition [facility] - Main Lab [address] [facility] [place] [address] Vanessa Maier MD 299 [facility] [address] [place] [phone] Encounter for screening for infections with a predominantly sexual mode of transmission Social History Tobacco Use Types Packs/Day Years Used Date Smoking Tobacco: Never Smokeless Tobacco: Never Alcohol Use Standard Drinks/Week Comments Never 0 (1 standard drink = 0.6 oz pur e alcohol) Comments Unknown Sex and Gender Information Value Date Recorded Sex Assigned at Female 08/07/2024 10:56 AM EST Legal Sex Female 1:18 AM EST Gender Identity Female 08/07/2024 10:56 AM EST Sexual Orientation Straight 08/07/2024 10 :56 AM EST documented as of this encounter Functional Status * Are you deaf or do you have serious difficulty hearing? Answer Date of Assessment Author No 09/25/2024 9:06 PM Roge Baker RN * Are you blind or do you have serious difficulty seeing, even when wearing glasses? Answer Date of Assessment Author No 09/25/2024 9:06 PM Roge Baker RN * Do you have serious difficulty walking or climbing stairs? Answer Date of Assessment Author No 09/25/2024 9:06 PM Roge Baker RN * Do you have serious difficulty dressing or bathing? Answer Date of Assessment Author No 09/25/2024 9:06 PM Roge Baker RN * Because of a physical, mental, or emotional condition, do you have serious difficulty doing errandsalone such as visiting the doctor? Answer Date of Assessment Author No 09/25/2024 9:06 PM Roge Baker RN documented as of this encounter Mental Status * Because of a physical, mental, or emotional condition, do you have serious difficulty concentrating, remembering, or making decisions? (5 years old or older) Answer Entry Date Author No 09/25/2024 9:06 PM Roge Baker RN documented in this encounter Plan of Treatment Upcoming Encounters Date Type Department Care Team (Late st Contact Info) Description 05/28/2025 8:00 AM EDT Appointment [facility] Endoscopy [address] [place] [address] Chuy Wallace MD [address] [address] documented as of this encounter Procedures Procedure Name Priority Date/Time Associated Diagnosis Comments CHLAMYDIA TRACHOMATIS AND NEISSERIA GONORRHOEAE PCR Routine 12/11/2024 12:00 AM EDT Encounter for screening for infections with a predominantly sexual mode of transmission documented in this encounter Results * Chlamydia trachomatis and Neisseria gonorrhoeae molecular study (12/11/2024 12:00 AM EDT) Neisseria gonorrhoeae PCR Negative Negative LAB MOLECULAR DIAGNOSTICS METHOD 12/12/2024 10:58 AM EDT [facility] Chlamydia trachomatis PCR Negative Negative LAB MOLECULAR DIAGNOSTICS METHOD 12/12/2024 10:58 AM EDT [facility] Swab Cervix uteri structure / Unknown 12/11/2024 12/11/2024 12:49 PM EDT us Vanessa Maier MD LAB MICROBIOLOGY - GENER AL ORDERABLES Final Result [facility] [address] [place] [address], documented in this encounter Visit Diagnoses Diagnosis Encounter for screening for infections with a predominantly sexual mode of transmission documented in this encounter Care Teams Health Promotion Officer Relationship Specialty Start Date End Date Gilmer Silverio MD [address] [place] [address] PCP - General Internal Medicine 08/07/24 documented as of this encounter
[2025-03-20 15:53] LABS: CT PCR Urine NOT DETECTED (Not Detect.); NG PCR Urine NOT DETECTED (Not Detect.)
[2025-03-21 08:12] LABS: Syphilis Screen Nonreactive (Nonreactive)
[2025-03-21 08:30] LABS: HBS Num1 3.71 mIU/mL (0-7.99); HBc Num1 0.14 S/CO (0.00-0.79); HBsAGNum1 0.31 S/CO (0.00-0.99); HIV Num 1 0.06 S/CO (0.00-0.99); Hepatitis B Surface Antigen Negative (Negative); ~HepC Num1 0.09 S/CO (0.00-0.79); ~Hepatitis B Surface Antibody NONREACTIVE (Nonreactive); ~Hepatitis C Antibody Nonreactive (Nonreactive)
== END 2025-03-20 11:53 | disposition home or self-care (01) ==
LOC: HO.HHCL 11:52
PROVIDERS: PCP Internal Medicine; Visit Provider Internal Medicine
DX: Z71.1 Person with feared health complaint in whom no diagnosis is made (principal)
CPT/HCPCS: 36415; 86704; 86706; 86780; 86803; 87340; 87389; 87491; 87591

== ENCOUNTER 2025-07-10 10:00 | Outpatient (AMB) | payer MEDICAID, SELFPAY ==
--- NOTE | 2025-07-10 10:23 | MHC.OFFVIS ---
Intake Visit Reasons: Migranes follow up Allergies No Known Allergies Allergy (Mild, Unverified 05/28/20 16:27) NONE HPI Comments Details: 49 years old woman with anxiety, depression, and headaches since she was 14 years old. She is here for chronic migraine without aura. She experiences headaches 6 to 7 times per month, each lasting two to three days. Stress appears to be a contributing factor in the frequency of these episodes. The patient manages her migraines with a 40 mg medication that she reports as effective. Her insurance covers this medication. She anticipates pharmacy coordination for refills, maintaining a consistent management strategy. Current treatment seems to alleviate her migraine symptoms effectively. COUNT INCLUDES [facility] Medical History (Updated 07/10/25 @ 10:24 by Dana Galindo MD) Other chronic pain Sinusitis Paresthesia of skin Tension headache Migraine Review of Systems Narrative Constitutional:?No fever, chills, fatigue, weight loss, or night sweats. HEENT:?No vision changes, hearing loss, nasal congestion, sore throat. Neurological:?C/o headaches Psychiatric:?c/o stress Endocrine:?No heat/cold intolerance, polydipsia, polyuria, or hair/skin changes. Hematologic/Lymphatic:?No easy bruising, bleeding, or lymphadenopathy. Integumentary (Skin):?No rash, lesions, itching, or color changes. ? Physical Exam Neuro Other: Mental Status: Alert and oriented to person, place, and time. Normal attention. Normal spontaneous speech, fluency, and comprehension. Cranial Nerves: CN II: Visual allan full to confrontation, visual acuity intact. CN III, IV, : Pupils equal, round, reactive to light and accommodation. Extraocular movements are normal. CN V: Facial sensation is normal. CN VII: Facial movements symmetrical. CN VIII: Hearing intact to bedside conversation is normal. CN IX, X: Palate elevates symmetrically. CN XI: Shoulder shrug and head turn symmetrical. CN XII: Tongue midline without atrophy or fasciculations. Extrapyramidal: Full facial expressions and blinking. No rigidity. Movements are appropriate with no tremor or abnormality. Speech: Normal; no dysarthria or tremor. Assessment & Plan Assessment & Plan (1) Migraine: Comment: Meds tried: Sumatriptan, rizatriptan. Code(s): G43.909 - Migraine, unspecified, not intractable, without status migrainosus Category: Medical Qualifiers: Migraine type: without aura Status migrainosus presence: without status migrainosus Intractability: not intractable Qualified Code(s): G43.009 - Migraine without aura, not intractable, without status migrainosus Plan Impression: Chronic migraine without aura happening few times a month. Recommendations: Eletriptan 40 mg 1 a day as needed. Coding Level of Care Code Est Pt Level 3 (11279) Diagnoses Migraine without aura and without status migrainosus, not intractable G43.009 Migraine type: without aura Status migrainosus presence: without status migrainosus Intractability: not intractable
--- OUTSIDE RECORDS SUMMARY | 2025-07-10 11:56 | XMS_ITS | Encounter Summary ---
Author Organization [employer] Address [address] [facility] 7[address] [place] [address] Care Team Providers Care Silk Blocker Name Role Phone Gilmer Alvarez MD Primary Care Provide r Reason for Visit * Reason Onset Date Comments Med Refill 04/26/2024 Encounter Details Date Type Department Care Team ([facility] st Contact Info) Description 04/26/2024 Telephone [facility] MEDICINE [address] [place], [place] [phone] Gilmer Alvarez MD [address] [place] [address] Med Refill Social History Tobacco Use Types [...] prescribed by PCP. * Telephone Encounter - Jye Garcia - 04/26/2024 10:01 AM EDT TC from pt requesting medication refill. Medications needing refill : topiramate 50 MG tablet To be sent to: [facility] - [place], [place] - [address] [facility] documented in this encounter Plan of Treatment Not on file documented as of this encounter Visit Diagnoses Not on filedocumented in this encounter Additional Health Concerns Assessment Noted Time PHQ-9 Depression Total Score: 0 04/06/20 23 3:23 PM EDT documented as of this encounter Care Teams Silk Blocker Relationship Specialty Start Date End Date Gilmer Alvarez MD [address] [place] [address] PCP - General Internal Medicine 06/18/14 documented as of this encounter
--- OUTSIDE RECORDS SUMMARY | 2025-07-10 11:56 | XMS_ITS | Encounter Summary ---
Author Organization [employer] Address [address] [place] [address] [address]t [place] [address] Care Team Providers Care Hand Inspector Name Role Phone Gilmer Alvarez MD Primary Care Provide r Encounter Details Date Type Department Care Team (Late st Contact Info) Description 10/26/2022 Orders Only [facility] MED[facility]INE [address] [place], [place] [phone] Provider, MD Christo Social History Tobacco Use [...] on filedocumented in this encounter Care Teams Hand Inspector Relationship Specialty Start Date End Date Gilmer Alvarez MD [address] [place] [address] PCP - General Internal Medicine 06/18/14 documented as of this encounter
--- OUTSIDE RECORDS SUMMARY | 2025-07-10 11:56 | XMS_ITS | Encounter Summary ---
Author Organization [employer] Address [address] [place] [address] [address]t [place] [address] Care Team Providers Care Cutter Tender Name Role Phone Gilmer Alvarez MD Primary Care Provide r Encounter Details Date Type Department Care Team ([facility] st Contact Info) Description 09/08/2022 Telephone [facility] MEDICINE [address] [place], [place] [phone] Gilmer Alvarez MD [address] [place] [address] Social History Tobacco Use Types Packs/Day Years [...] on filedocumented in this encounter Care Teams Cutter Tender Relationship Specialty Start Date End Date Gilmer Alvarez MD [address] [place], [place] [phone] PCP - General Internal Medicine 06/18/14 documented as of this encounter
--- OUTSIDE RECORDS SUMMARY | 2025-07-10 11:56 | XMS_ITS | Encounter Summary ---
Author Organization [facility] Address [address] [place] [address] Care Team Providers Care Library Clerical Assistant Name Role Phone Gilmer Silverio MD Primary Care Provi kirsty Encounter Details Date Type Department Care Team (Latest Contact Info) Description 12/11/2024 Lab Requisition [facility] - Main Lab 299 [facility] [place] [address] Vanessa Maier MD 299 [facility] [address] [place] [address] Encounter for screening for infections with a [...] MOLECULAR DIAGNOSTICS METHOD 12/12/2024 10:58 AM EDT [facility] Chlamydia trachomatis PCR Negative Negative LAB MOLECULAR DIAGNOSTICS METHOD 12/12/2024 10:58 AM EDT [facility] Swab Cervix uteri structure / Unknown 12/11/2024 12/11/2024 12:49 PM EDT us Vanessa Maier MD LAB MICROBIOLOGY - GENER AL ORDERABLES Final Result [facility] [address] [place] [address], documented in this encounter Visit Diagnoses Diagnosis Encounter for screening for infections with a predominantly sexual mode of transmission documented in this encounter Care Teams Library Clerical Assistant Relationship Specialty Start Date End Date Gilmer Silverio MD [address] [place] [address] PCP - General Internal Medicine 08/07/24 documented as of this encounter
--- OUTSIDE RECORDS SUMMARY | 2025-07-10 11:56 | XMS_ITS | Encounter Summary ---
Author Organization [employer] Address [address] [facility] 7t [place] [address] Care Team Providers Care Summer Law Associate Name Role Phone Gilmer Alvarez MD Primary Care Provide r Encounter Details Date Type Department Care Team (Late st Contact Info) Description 10/16/2024 Orders Only [facility] [address] [place] [address] Provider, MD Christo Social History Tobacco Use [...] documented as of this encounter Care Teams Summer Law Associate Relationship Specialty Start Date End Date Gilmer Alvarez MD [address] [place] [address] PCP - General Internal Medicine 06/18/14 documented as of this encounter
--- OUTSIDE RECORDS SUMMARY | 2025-07-10 11:56 | XMS_ITS | Encounter Summary ---
Author Organization [employer] Address [address] [facility] [address] [place] [address] Care Team Providers Care Child Nutrition Director Name Role Phone Gilmer Alvarez MD Primary Care Provide r Reason for Visit * Reason Onset Date Comments Med Refill 08/10/2023 Encounter Details Date Type Department Care Team ([facility] st Contact Info) Description 08/10/2023 Telephone [facility] MEDICINE [address] [place], [place] [phone] Gilmer Alvarez MD 230 [place] [address] Med Refill Social History Tobacco Use Types [...] documented as of this encounter Care Teams Child Nutrition Director Relationship Specialty Start Date End Date Gilmer Alvarez MD [address] [place] [address] PCP - General Internal Medicine 06/18/14 documented as of this encounter
--- OUTSIDE RECORDS SUMMARY | 2025-07-10 11:56 | XMS_ITS | Encounter Summary ---
Author Organization [facility] Address [address] [place] [address] Care Team Providers Care Product Director Name Role Phone Gilmer Silverio MD Primary Care Provi kirsty Encounter Details Date Type Department Care Team (Latest Contact Info) Description 12/11/2024 Lab Requisition [facility] - Main Lab 299 [facility] [place] [address] Vanessa Maier MD 299 [facility] [address] [place] [address] Encounter for gynecological examination (general) (routine) without abnormal findings Social History Tobacco Use Types Packs/Day Years [...] Procedure Name Priority Date/Time Associated Diagnosis Comments PAP SMEAR Routine 12/11/2024 12:00 AM EDT Encounter for gynecological examination (general) (routine) without abnormal findings documented in this encounter Results * Pap smear (12/11/2024 12:00 AM EDT) Interpretation Negative for intraepithelial lesion or malignancy 12/13/2024 9:43 AM [facility] General Categorization Negative 12/13/2024 9:43 AM [facility] LMP 12/04/2024 12/13/2024 9:43 AM [facility] Specimen Adequacy Satisfactory for evaluation, endocervical/pollock sformation zone component present 12/13/2024 9:43 AM [facility] Pap Methodology Liquid Based Pap Test 12/13/2024 9:43 AM [facility] Disclaimer The Pap test is a screening test which carries an inherent false negative rate. These test results should be correlated with the patient's clinical findings and history. This Pap test was processed using an automated screening system. Technical cytopathology services provided by [facility], at [address] [place] [address] (CLIA # [id number]/Lima Rodriges MD, Pewter Caster.) 12/13/2024 9:43 AM EDT [facility] Console Pap Interpretation Reported 12/13/2024 9:43 AM EDT [facility]) [facility] Brushing/Spatula Cervix uteri structure / Unknown 12/11/2024 12/11/2024 3:00 PM EDT us Vanessa Maier MD LAB CYTOLOGY ORDERABLES Final Result [facility] [address] [place] [address], documented in this encounter Visit Diagnoses Diagnosis Encounter for gynecological examination (general) (routine) without abnormal findings documented in this encounter Care Teams Product Director Relationship Specialty Start Date End Date Gilmer Silverio MD 230 [place] [address] PCP - General Internal Medicine 08/07/24 documented as of this encounter
--- OUTSIDE RECORDS SUMMARY | 2025-07-10 11:56 | XMS_ITS | Clinical Summary ---
Author Organization [employer] Address [address] [place] [address] [address] [place] [address] Care Team Providers Care Market Asset Protection Manager Name Role Phone Gilmer Alvarez MD Primary Care Provide r Allergies No known active allergies Medications * This document contains information received from the source organization and may not represent a complete record from that organization. ibuprofen 800 MG tablet TAKE 1 TABLET BY MOUTH THREE TIMES DAILY NEEDED FOR PAIN 2 Active polyethylene glycol, PEG, 3350 (Glycolax) 17 GM/SCOOP powder TAKE 17 GM MIXED IN 8 OUNCES OF WATER ONCE DAILY 2 Active FeroSul 325 (65 Fe) MG tablet TAKE 1 TABLET BY MOUTH EVERY OTHER DAY 90 tablet 3 Active topiramate 50 MG tablet Take 1 tablet by mouth at bedtime. 4 Active ondansetron ODT (Zofran-ODT) 4 MG disintegrating tablet DISSOLVE 1 TABLET BY MOUTH EVERY DAY NEEDED FOR NAUSEA 20 tablet 4 Active buPROPion XL (Wellbutrin XL) 150 MG 24 hr tabletIndications: Depressive disorder Take 1 tablet (150 mg) by mouth Once per day. Do not crush, chew, or split. 30 tablet 6 4 Active hydrOXYzine pamoate (Vistaril) 25 MG capsuleIndications :Anxiety TAKE 1 CAPSULE BY MOUTH EVERY 8 HOURS NEEDED FOR ANXIETY 90 capsule 1 4 Active fluticasone (Flonase) 50 MCG/ACT nasal sprayIndications:R ight ear pain Administer 1-2 sprays into each nostril Once per day. Shake gently. Before first use, prime pump. After use, clean tip and replace cap. 16 g 2 4 025 Active cetirizine (ZyrTEC) 10 MG tabletIndications: Right ear pain Take 1 tablet (10 mg) by mouth Once per day. 30 tablet 5 4 Active clotrimazole (Lotrimin) 1 % creamIndications:T inea corporis Apply to affected area of skin twice a day until resolved, between 1-3 weeks. 60 g 1 4 Active Blood Pressure kitIndications:Lucia trey hypertension Use once a week 1 kit 5 Active predniSONE (Deltasone) 20 MG tabletIndications: Cough, unspecified type 2 tabs po daily for 5 days 10 tablet 5 Active amLODIPine (Norvasc) 2.5 MG tabletIndications: Primary hypertension TAKE 1 TABLET BY MOUTH ONCE DAILY 90 tablet 1 5 Active SUMAtriptan (Imitrex) 50 MG tabletIndications: Migraine without status migrainosus, not intractable, unspecified migraine type TAKE 1 TABLET BY MOUTH AT ONSET OF MIGRAINE. MAY REPEAT ONCE AFTER 2 HOURS IF NEEDED DO NOT EXCEED 4 TABLETS IN 24 HOURS 6 tablet 5 Active omeprazole (PriLOSEC) [address] capsule TAKE 1 CAPSULE BY MOUTH EVERY DAY 30 MINUTES TO 1 HOUR BEFORE A MEAL 90 capsule 5 Active Active Problems Problem Noted Date Diagnosed Date Right lower quadrant abdominal pain 11/19/2024 Assessment & Plan (03/20/2025 11:29 AM EDT): Patient seen in [facility] ED on 03/14/25 for epigastric and left upper quadrant abdominal pain for 2 to 3 days. Denies fever, shortness of breath, hematochezia, or melena. CT scan completed which was unremarkable. Suspected GERD-was discharged with sucralfate and omeprazole. Seen by GI 03/18/2025 scheduled for Colonoscopy Assessment & Plan (11/19/2024 11:35 AM EDT): [...] out radiculopathy Cough 09/17/2024 Assessment & Plan (03/20/2025 11:26 AM EDT): Pt with mild non productive cough, lungs CTA B. PFTs 12/20/2024 was Normal Chest x-ray 09/25/2024 Normal ([facility]) Assessment & Plan (11/19/2024 11:33 AM EDT): [...] -no other symptoms -appointment for tomorrow with [facility] eye care 3:30 -Advised to go to ER for increased pain, vision changes, worsening symptoms or concerns. She agrees with the plan. Primary hypertension 08/15/2024 Assessment & Plan (03/20/2025 11:29 AM EDT): Pt here for a follow up On Amlodipine 2.5mg daily Follow up 3 months Assessment & Plan (11/19/2024 11:15 AM EDT): Pt here for a follow up On Amlodipine 2.5mg daily Follow up 3 months Assessment & Plan (09/17/2024 2:57 PM EST): Pt's blood pressure elevated recently started on Amlodipine 2.5mg daily 08/15/24. At [facility] Pt did not take it today Plan: [...] to the [facility] and wellness Ctr at [facility]. She was seen 04/03/2024 and reassured that [...] to the Breast and wellness Ctr at [facility] Adjustment disorder with anxiety 12/13/2023 Assessment & [...] intervention , Patient to reach out to [facility] team as needed, Comply with medication , [...] to the Breast and wellness Ctr at [facility]. She was seen 04/03/2024 and reassured that [...] to the Breast and wellness Ctr at [facility] Breast mass, left 09/01/2022 Assessment & Plan [...] in 01/2023. Pt was also referred to [facility], seen 08/10/2022 Complex cyst of [...] the same cyst. Pt was referred to PBX MANAGER . Pt tells me she is going to schedule an appointment. She tells me she is seeing someone at [facility] Repeat Pelvic US 10/2023 showed:A small [...] the same cyst. Pt was referred to PBX MANAGER . Pt tells me she is going to schedule an appointment. She tells me she is seeing someone at [facility] Will repeat Pelvic US Assessment & [...] the same cyst. Pt was referred to [facility] care 09/01/2022 Assessment & Plan (03/20/2025 11:24 AM EDT): Mammogram:Pt had a Mammogram 07/2022 [...] to the Breast and wellness Ctr at [facility]. She was seen 04/03/2024 and reassured that there was no breast sources of her pain and it was likely referred pain Pap smear: Pap Smear: NL: 12/11/2024 ([facility] ) Colorectal cancer screen: referred Assessment & Plan (11/19/2024 11:25 AM EDT): [...] to the Breast and wellness Ctr at [facility]. She was seen 04/03/2024 and reassured that [...] for a follow up, previously seen at [facility] treated with Sumatriptan with good results Last [...] did not go because the lack of boom man. Pt was seen by a different neurologist at [facility] who mentioned pt had compliance issues. recommended Sumatriptan and Amitriptyline and f/u last seen 10/2013 Assessment & Plan (09/12/2023 10:58 AM EST): Recently seen at [facility] treated with Sumatriptan with good results Will [...] did not go because the lack of boom man. Pt was seen by a different neurologist at [facility] who mentioned pt had compliance issues. recommended Sumatriptan and Amitriptyline and f/u last seen 10/2013 Posttraumatic stress disorder 01/31/2013 Encounters Date Type Department Care Team Description 06/02/2025 Patient Outreach [facility] [address] [place] [id number] Gilmer Alvarez MD Transition Of Care (Tcm) (HDF- Unscheduled - patient does not need HDF. ) from Last 3 Months Immunizations Immunization Administration Dates Next Due Hep B, adult [...] your housing situation today? I have veronica maik 09/05/[address] you li [...] Mass Index 31.59 03/20/2025 11:24 AM EDT Plan of Treatment Health Maintenance Due Date Last Done Comments CT Colonography 1975 Colonoscopy 1975 Colorectal Cancer Screening 1975 FIT DNA/Cologuard 1975 FIT 1975 FOBT 1975 Sigmoidoscopy 1975 Family Planning (PISQ) 12/04/1990 Pneumococcal Vaccine: Pediatrics (0 to 5 Years) and At-Risk Patients (6 to 49) Years (1 of 2 - PCV) 12/04/1994 Mammogram 01/12/2024 01/11/2023, 07/12, 07/22/2022, Additional history exists COVID-19 Vaccine (4 - 2025-26 season) 2025 09/17/2021, 02/23/2021, 01/26/2021 Influenza Vaccine (#1) 2025 06/23/2021 Alcohol/Substance Use Screening 09/17/2025 09/17/2024 Depression Screening 09/17/2025 09/17/2024, 09/17/19 25 Zoster Vaccines (1 of 2) 12/04/2025 SDOH Screening 03/11/2026 03/11/2025 Disability Screening 03/20/2026 03/20/2025 Tobacco Screening 03/20/2026 03/20/2025 Cervical Cancer Screening 06/23/2026 HPV/Cotest 06/23/2026 06/23/2021 Lipid Panel 09/16/2028 09/16/2023, 12/01/2021 Pap Smear 12/11/2029 12/11/2024, 06/23/2021 DTaP/Tdap/Td Vaccines (2 - Td or Tdap) 06/23/2031 06/23/2021 RSV Patients and Patients Aged 60 years or older (1 - 1-dose 75+ series) 12/04/2050 Hepatitis B Vaccines Completed 02/18/2009, 08/26/2008, 07/10/2008 HIV Screening Completed 03/20/2025, 09/02/2022 Hepatitis C Screening Completed 03/20/2025 , 09/02/2022, 12/01/2021 HIB Vaccines Aged Out No longer eligi [...] age to complete this topic Meningococcal B Vaccine Aged Out No l onger eligible based on patient's age to complete [...] Procedure Name Priority Date/Time Associated Diagnosis Comments AMB REFERRAL TO GASTROENTEROLOGY Routine 05/28/2025 Right lower quadrant abdominal pain Colon cancer screening HEPATITIS C AB W/REFL TO HCV RNA, QN, PCR Routine 03/20/2025 11:57 AM EDT Concern about STI in female without diagnosis HIV 1/2 ANTIGEN/ANTIBODY, FOURTH GENERATION W/RFL Routine 03/20/2025 11:57 AM EDT Concern about STI in female without diagnosis HM PAP/HPV Routine 12/11/2024 12:00 AM EDT LIPID PANEL WITH REFLEX TO DIRECT LDL Routine 09/16/2023 8:58 AM EST Physical exam, routine HM MAMMOGRAPHY Routine 01/11/2023 11:46 AM EDT HPV MRNA E6/E7 Routine 06/23/2021 11:17 AM EDT from Last 3 Months or Most Recently Relevant to Health Maintenance Results * Referral to Gastroenterology (05/28/2025) Gilmer Garcia MD OUTPATIENT REFERRAL O RDERABLES Final Result * Hepatitis C Antibody with Reflex to HCV, RNA, Quantitative, Real-Time PCR (03/20/2025 11:57 AM EDT) Hepatitis C Antibody Nonreactive Nonreactive [facility] Comment:Antibodies to HCV no t detected; does not exclude early acuteHCV infection. Blood Venous blood specimen / Unknown 03/20/2025 11:57 AM EDT 03/20/2025 2:10 PM EDT Gilmer Garcia MD LAB BLOOD ORDERABLES Final Result [facility] [address] [place] [phone] * HIV-1/2 Antigen and Antibodies, Fourth Generation, with Reflexes (03/20/2025 11:57 AM EDT) HIV AB/AG Nonreactive Nonreactive [facility] Comment:HIV-1 p24 Ag and/or HIV-1/HIV-2 Ab not detected.A test result that is nonreactive does not exclude thepossibility of exposure to or infection with HIV-1 and/orHIV-2. Nonreactive results in this assay for individualswith prior exposure to HIV-1 and/or HIV-2 may be due toantigen and antibody levels that are below the limit ofdetection of this assay.The [employer] HIV Ag/Ab Combo assay result andsupplemental assay results should be interpreted inconjunction with the patient's clinical presentation,history and other laboratory results. If the results areinconsistent with clinical evidence, additional testing issuggested to confirm the result. Blood Venous blood specimen / Unknown 03/20/2025 11:57 AM EDT 03/20/2025 2:10 PM EDT Gilmer Garcia MD LAB BLOOD ORDERABLES Final Result [facility] [address] [place] [phone] * HM PAP/HPV (12/11/2024 12:00 AM EDT) Pap Smear 1. NILM 1. NILM Cervix 12/11/2024 Gilmer Garcia MD [facility] nal Result * (ABNORMAL) Lipid Panel with Reflex to Direct LDL (09/16/2023 8:58 AM EST) Triglycerides 69 <150 mg/dL [facility] Comment:Desirable Triglyceri de: less than 150 mg/dLBorderline High Triglyceride 150-199 mg/dLHigh Triglyceride: 200-499 mg/dLVery High Triglyceride: greater than or equal to 5OO mg/dL Cholesterol 196 <200 mg/dL [facility] Comment:Desirable Cholestero l: less than 200 mg/dLBorderline High Cholesterol: 200-239 mg/dLHigh Cholesterol: greater than 239 mg/dL LDL Cholesterol Calculated 121(H) <100 mg/dL [facility] Comment:Desirable LDL: less than 100 mg/dLNear Optimal/Above Optimal LDL: 110- 129 mg/dLBorderline High LDL: 130-159 mg/dLHigh LDL: 160-189 mg/dLVery High LDL: greater than or equal to 190 mg/dL HDL Cholesterol 62 >40 mg/dL [facility] Comment:Desirable HDL: great er than 40 mg/dL Note: This HDL assay may give artificially low results in patients with liver disease. Blood 09/16/2023 8:58 AM EST 09/16/2023 8:58 AM EST Gilmer Garcia MD LAB BLOOD ORDERABLES Final Result [facility] [address] [place] [phone] * Mammography (01/11/2023 11:46 AM EDT) Mammogram Birads-1 Anatomical Region Laterality Modality Other Historical Provider HEALTH MAINTENANCE Final Result * HPV mRNA E6/E7 (06/23/2021 11:17 AM EDT) HPV nRNA E6/E7 Not Detected Not Detected [facility] Comment: Methodology: Pet Stylist-Mediated Amplification This assay detects E6/E7 viral messenger RNA (mRNA) from 14 high-risk HPV types (16,18,31,33,35,39,45,51,52,56,58,59,66,68). The analytical performance characteristics of this assay have been determined by [employer]. The modifications have not been cleared or approved by the FDA. This assay has been validated pursuant to the CLIA regulations and is used for clinical purposes. For additional information, please refer to http://education.[employer].FanFueled/faq/YIB915j0 (This link if provided for information/ educational purposes only.) 06/23/2021 11:1 7 AM EDT us Shadia Gutierresbabatunde CNM LAB BLOOD ORDERABLES Makayla latosha Result [facility] [address] from Last 3 Months or Most Recently Relevant to Health Maintenance Insurance [email or web address] C3 Care Teams Market Asset Protection Manager Relationship Specialty Start Date End Date Gilmer Alvarez MD [address] [place] [id number] PCP - General Internal Medicine 06/18/14
--- OUTSIDE RECORDS SUMMARY | 2025-07-10 11:56 | XMS_ITS | Clinical Summary ---
Author Organization [facility] Address [address] [place] [address] Phone Care Team Providers Care Diesel Maintenance Technician Name Role Phone Gilmer Silverio MD Primary Care Provi kirsty Allergies Active Allergy Reactions Criticality Noted Date Comments Morphine Other High 03/31/2022 Chest tightness Medications diphenhydrAMINE (BENADRYL) 25 mg capsule Take 1 capsule (25 mg total) by mouth every 4 (four) hours if needed for itching for up to 4 days. 16 capsule 4 Active amLODIPine (NORVASC) 2.5 mg tablet Take 1 tablet (2.5 mg total) by mouth daily. 5 Active eletriptan (RELPAX) 40 mg tablet TAKE 1 TABLET BY MOUTH EVERY DAY NEEDED FOR MIGRAINE 5 Active ondansetron (ZOFRAN) 4 mg tablet Take 1 tablet (4 mg total) by mouth. Active polyethylene glycol (MIRALAX) 17 gram packetIndication s:Generalized abdominal pain,Constipatio n, unspecified constipation type Take 17 g by mouth 1 (one) time each day. 510 g 11 5 026 Active polyethylene glycol (Golytely) 236-22.74-6.74 -5.86 gram solution Take 4L by mouth once for one dose. May substitue any PEG. Starting at 2PM the day before your procedure drink 1 8oz glasses at your own pace until you complete half of the gallon. Finish 2nd half of the gallon at 8PM. 4000 mL 5 Active bisacodyL (DULCOLAX) 5 mg EC tablet Take 2 tablets by mouth right before beginning bowel prep. See instructions provided by the office 2 tablet 5 Active omeprazole (PriLOSEC) [address] capsule TAKE 1 CAPSULE BY MOUTH EVERY DAY 30 TO 60 MINUTES BEFORE A MEAL Active cetirizine (ZyrTEC) 10 mg tablet Take 1 tablet (10 mg total) by mouth daily. 4 Active topiramate (TOPAMAX) 50 mg tablet Take 1 tablet (50 mg total) by mouth 2 (two) times a day. Active SUMAtriptan (IMITREX) 50 mg tablet TAKE 1 TABLET BY MOUTH AT ONSET OF MIGRAINE. MAY REPEAT ONCE AFTER 2 HOURS IF NEEDED. DO NOT EXCEED 4 TABLETS IN 24 HOURS Active ibuprofen (ADVIL,MOTRIN) 800 mg tablet TAKE 1 TABLET BY MOUTH EVERY 8 HOURS NEEDED FOR PAIN. TAKE WITH FOOD. Active hydrOXYzine pamoate (VISTARIL) 25 mg capsule Take 1 capsule (25 mg total) by mouth every 8 (eight) hours if needed. 4 Active Active Problems Problem Noted Date Diagnosed Date Right lower quadrant abdominal pain 11/19/2024 Kidney stone 10/15/2024 Acute pain of left shoulder 09/17/2024 Cough 09/17/2024 Neck pain on left side 09/17/2024 Primary hypertension 08/15/2024 Subconjunctival hemorrhage of left eye 4 Breast pain, left 03/05/2024 Adjustment disorder with anxiety 12/13/2023 Complex cyst of breast 09/12/2023 Varicose vein of leg 09/12/2023 Breast mass, left 09/01/2022 Complex cyst of left ovary 09/01/2022 Cervical spondylosis 07/05/2021 Depressive disorder 01/31/2013 Migraine 01/31/2013 Posttraumatic stress disorder 01/31/2013 Encounters Date Type Department Care Team Description 05/28/2025 7:55 AM EDT Anesthesia Event [facility] Endoscopy [address] [place] [phone] Golden Morales MD 05/28/2025 6:45 AM EDT - 05/28/2025 11:59 PM EDT Hospital Encounter [facility] Endoscopy [address] [place] [phone] Chuy Wallace MD Saliga, Jesse L, MD Mounsey, Sarah, CRNA Constipation, unspecified constipation type; Generalized abdominal pain Discharge Disposition: Home or Self Care from Last 3 Months Medical History Medical History Date Comments Migraines Asthma Hypertension Family History Medical History Relation Name Comments gastric cancer Father Breast cancer Mother's Sister Colon cancer Neg Hx Relation Name Status Comments Father Mother's Sister Social History Tobacco Use Types Packs/Day Years Used Date Smoking Tobacco: Never Smokeless Tobacco: Never Tobacco Cessation:Counseling Given: Not Answered Alcohol Use Standard Drinks/Week Comments Not Currently 0 (1 standard drink = 0.6 oz pur e alcohol) Interpersonal Safety Answer Date Record ed Physical Abuse Unrecognized value 05/28/2025 Verbal Abuse Unrecognized value 05/28/2025 Comments Unknown Sex and Gender Information Value Date Recorded Sex Assigned at Female 08/07/2024 10:56 AM EST Legal Sex Female 1:18 AM EST Gender Identity Female 08/07/2024 10:56 AM EST Sexual Orientation Straight 08/07/2024 10 :56 AM EST Obstetrics History Last Filed Vital Signs Vital Sign Reading Time Taken Comments Blood Pressure 122/78 05/28/2025 8:30 AM EDT Pulse 66 05/28/2025 8:30 AM EDT Temperature 36.6 C (97.8 F) 05/28/2025 8:10 AM EDT Respiratory Rate 16 05/28/2025 8:30 AM EDT Oxygen Saturation 98% 05/28/2025 8:30 AM EDT Inhaled Oxygen Concentration - - Weight 74.4 kg (164 lb) 05/28/2025 7:07 AM EDT Height 154.9 cm (5' 1 ) 05/28/2025 7:07 AM EDT Body Mass Index 30.99 05/28/2025 7:07 AM EDT Plan of Treatment Health Maintenance Due Date Last Done Comments Breast Cancer Screening 1975 Cholesterol Screening (Lipid Panel) 08/14/2022 Social Influencers of Health Screening 08/14/2022 Depression Screening 09/11/2024 COVID-19 Vaccine ( season) 2025 09/17/2021, 02/23/2021, 01/26/2021 Influenza Vaccine (#1) 2025 06/23/2021 Hypertension/CHF/CAD Annual BMP Blood Test 03/14/2026 03/14/2025, 11/19/2024, 10/15/2024, Additional history exists Cervical Cancer Screening: Pap Smear 12/12/2027 12/11/2024 DTaP,Tdap,and Td Vaccines (2 - Td or Tdap) 06/23/2031 06/23/2021 Colorectal Cancer Screening: Colonoscopy 05/28/2035 05/28/2025 RSV Immunization Adult Patients (1 - 1-dose 75+ series) 12/04/2050 Hepatitis B Vaccines Completed 02/18/2009, 08/26/2008, 07/10/2008 HIV Screening Completed 03/20/2025, 09/02/2022 Hepatitis C Screening Completed 03/20/2025, 022 HIB Vaccines Aged Out No longer [...] on patient's age to complete this topic Pneumococcal Vaccine: Pediatrics (0 to 5 Years) and At-Risk Patients (6 to 49 Years) Aged Out No longer eligible based on patient's age to complete this topic RSV Immunization Patients Under 20 months Aged Out No longer eligible based on patient's age to complete this topic Varicella Vaccines Aged Out No longer eligible based on patient's age to complete this topic Procedures Procedure Name Priority Date/Time Associated Diagnosis Comments COLONOSCOPY Routine 05/28/2025 8:09 AM EDT Constipation, unspecified constipation type Generalized abdominal pain COMPREHENSIVE METABOLIC PANEL STAT 03/14/2025 11:51 AM EDT PAP SMEAR Routine 12/11/2024 12:00 AM EDT Encounter for gynecological examination (general) (routine) without abnormal findings from Last 3 Months or Most Recently Relevant to Health Maintenance Results * COLONOSCOPY Anesthesia - MAC; [facility] ENDOSCOPY (05/28/2025 8:09 AM EDT) Anatomical Region Laterality Modality Endoscopy 05/28/2025 7:50 AM EDT Impressions 05/28/2025 8:11 AM EDT - Non-bleeding internal hemorrhoids. - The examination was otherwise normal on direct and retroflexion views. - No specimens collected. Recommendation: - Discharge patient to home. - Resume previous diet. - Continue present medications. - Repeat colonoscopy in 5-10 years for surveillance. - Return to GI clinic as previously scheduled. Narrative 05/28/2025 8:11 AM EDT [facility] GI Patient Name: Priti Vo Procedure Date: 05/28/2025 7:50 AM Date of : 1975 Age: 49 Room: ROOM 16 Gender: Female Note Status: Finalized Attending MD: Chuy Wallace MD, Procedure Date No Time: 05/28/2025 Procedure: Colonoscopy Indications: Screening for colorectal malignant neoplasm Providers: Chuy Wallace MD Referring MD: Chuy Wallace MD Medicines: Monitored Anesthesia Care Complications: No immediate complications. Estimated Blood Loss: Estimated blood loss: none. Procedure: Pre-Anesthesia Assessment: - ASA Grade Assessment: II - A patient with mild systemic disease. - After reviewing the risks and benefits, the patient was deemed in satisfactory condition to undergo the procedure. After I obtained informed consent, the scope was passed under direct vision. Throughout the procedure, the patient's blood pressure, pulse, and oxygen saturations were monitored continuously.The Olympus Pediatric Colonoscope was introduced through the anus and advanced to the cecum, identified by appendiceal orifice and ileocecal valve. The colonoscopy was performed without difficulty. The patient tolerated the procedure well. The quality of the bowel preparation was adequate. Findings: Non-bleeding internal hemorrhoids were found during retroflexion. The hemorrhoids were small. The exam was otherwise without abnormality on direct and retroflexion views. Procedure Code(s): --- Professional --- G0121, Colorectal cancer screening; colonoscopy on individual not meeting criteria for high risk Diagnosis Code(s): --- Professional --- Z12.11, Encounter for screening for malignant neoplasm of colon CPT copyright 2020 [employer]. All rights reserved. The codes documented in this report are preliminary and upon bulk materials handling plant operator review may be revised to meet current compliance requirements. Chuy Wallace MD 05/28/2025 8:11:10 AM This report has been signed electronically.Chuy Wallace MD Number of Addenda: 0 Note Initiated On: 05/28/2025 7:50 AM Scope In: Scope Out: Endoscopy Department at [facility] - [address] [place] [phone] Procedure Note Chuy Wallace MD - 05/28/2025 [facility] GI Patient Name: Priti Vo Procedure Date: 05/28/2025 7:50 AM Date of : 1975 Age: 49 Room: ROOM 16 Gender: Female Note Status: Finalized Attending MD: Chuy Wallace MD, Procedure Date No Time: 05/28/2025 Procedure: Colonoscopy Indications: Screening for colorectal malignant neoplasm Providers: Chuy Wallace MD Referring MD: Chuy Wallace MD Medicines: Monitored Anesthesia Care Complications: No immediate complications. Estimated Blood Loss: Estimated blood loss: none. Procedure: Pre-Anesthesia Assessment: - ASA Grade Assessment: II - A patient with mild systemic disease. - After reviewing the risks and benefits, thepatient was deemed in satisfactory condition to undergo the procedure. After I obtained informed consent, the scope was passed under direct vision. Throughout theprocedure, the patient's blood pressure, pulse, and oxygen saturations were monitored continuously.The Olympus Pediatric Colonoscope was introduced through theanus and advanced to the cecum, identified byappendiceal orifice and ileocecal valve. The colonoscopy was performed without difficulty. The patient tolerated the procedure well. The quality of the bowel preparation was adequate. Findings: Non-bleeding internal hemorrhoids were found during retroflexion. The hemorrhoids were small. The exam was otherwise without abnormality ondirect and retroflexion views. Procedure Code(s): --- Professional --- G0121, Colorectal cancer screening; colonoscopy on individual not meeting criteria for high risk Diagnosis Code(s): --- Professional --- Z12.11, Encounter for screening for malignantneoplasm of colon CPT copyright 2020 [employer]. All rights reserved. The codes documented in this report are preliminary and upon bulk materials handling plant operator reviewmay be revised to meet current compliance requirements. Chuy Wallace MD 05/28/2025 8:11:10 AM This report has been signed electronically.Chuy Wallace MD Number of Addenda: 0 Note Initiated On: 05/28/2025 7:50 AM Scope In: Scope Out: Endoscopy Department at [facility] - [address] [place] [phone] IMPRESSION: - Non-bleeding internal hemorrhoids. - The examination was otherwise normal on directand retroflexion views. - No specimens collected. Recommendation: - Discharge patient to home. - Resume previous diet. - Continue present medications. - Repeat colonoscopy in 5-10 years forsurveillance. - Return to GI clinic as previously scheduled. us Chuy Wallace MD GI~PROCEDURE ORDERABLES Final Result * Comprehensive metabolic panel (03/14/2025 11:51 AM EDT) Sodium 137 133 - 145 mmol/L LAB CHEMISTRY METHOD 03/14/2025 12:22 PM [facility] Potassium 4.5 3.5 - 5.5 mmol/L LAB CHEMISTRY METHOD 03/14/2025 12:22 PM [facility] Chloride 105 96 - 110 mmol/L LAB CHEMISTRY METHOD 03/14/2025 12:22 PM [facility] CO2 27 21 - 32 mmol/L LAB CHEMISTRY METHOD 03/14/2025 12:22 PM [facility] Anion Gap 5 3 - 11 LAB CHEMISTRY METHOD 03/14/2025 12:22 PM [facility] Glucose 95 70 - 100 mg/dL LAB CHEMISTRY METHOD 03/14/2025 12:22 PM [facility] BUN 12 5 - 25 mg/dL LAB CHEMISTRY METHOD 03/14/2025 12:22 PM [facility] Creatinine 0.82 0.50 - 1.10 mg/dL LAB CHEMISTRY METHOD 03/14/2025 12:22 PM [facility] eGFR 88 >=60 mL/min/1. 73m2 LAB CHEMISTRY METHOD 03/14/2025 12:22 PM [facility] Comment:Calculation based on the Chronic Kidney Disease Epidemiology Collaboration (CKD-EPI) equation refit without adjustment for race. BUN/Creatinine Ratio 14.6 LAB CHEMISTRY METHOD 03/14/2025 12:22 PM [facility] Calcium 9.6 8.5 - 10.5 mg/dL LAB CHEMISTRY METHOD 03/14/2025 12:22 PM [facility] AST (SGOT) 21 10 - 42 unit/L LAB CHEMISTRY METHOD 03/14/2025 12:22 PM [facility] ALT (SGPT) 29 10 - 60 unit/L LAB CHEMISTRY METHOD 03/14/2025 12:22 PM [facility] Alkaline Phosphatase 98 42 - 121 unit/L LAB CHEMISTRY METHOD 03/14/2025 12:22 PM [facility] Total Protein 8.0 6.0 - 8.0 g/dL LAB CHEMISTRY METHOD 03/14/2025 12:22 PM [facility] Albumin 4.0 3.2 - 5.0 g/dL LAB CHEMISTRY METHOD 03/14/2025 12:22 PM [facility] Total Bilirubin 0.3 0.0 - 1.4 mg/dL LAB CHEMISTRY METHOD 03/14/2025 12:22 PM [facility] Blood Venous blood specimen / Unknown Venipuncture / Unknown 03/14/2025 11:51 AM EDT 03/14/2025 11:55 AM EDT us Yogi Carrillo DO LAB BLOOD ORDERABLES Final Res ult [facility] [address] [place] [id number], * Pap smear (12/11/2024 12:00 AM EDT) Interpretation Negative for intraepithelial lesion or malignancy 12/13/2024 9:43 AM EDT [facility] General Categorization Negative 12/13/2024 9:43 AM EDT [facility] LMP 12/04/2024 12/13/2024 9:43 AM EDT [facility] Specimen Adequacy Satisfactory for evaluation, endocervical/pollock sformation zone component present 12/13/2024 9:43 AM EDT [facility] Pap Methodology Liquid Based Pap Test 12/13/2024 9:43 AM EDT [facility] Disclaimer The Pap test is a screening test which carries an inherent false negative rate. These test results should be correlated with the patient's clinical findings and history. This Pap test was processed using an automated screening system. Technical cytopathology services provided by [facility], at [address] [place] [id number] (CLIA # [id number]/Lima Rodriges MD, Poultry Scalder.) 12/13/2024 9:43 AM EDT [facility] Console Pap Interpretation Reported 12/13/2024 9:43 AM EDT [facility] Brushing/Spatula Cervix uteri structure / Unknown 12/11/2024 12/11/2024 3:00 PM EDT Vanessa Maier MD LAB CYTOLOGY ORDERABLES Final Result [facility] [address] [place] [address], from Last 3 Months or Most Recently Relevant to Health Maintenance Insurance MEDICAID - [place] Care Teams Diesel Maintenance Technician Relationship Specialty Start Date End Date Gilmer Silverio MD [address] [place] [address] PCP - General Internal Medicine 08/07/24
== END 2025-07-10 10:29 | disposition home or self-care (01) ==
LOC: HO.HSM 10:01
PROVIDERS: PCP Internal Medicine; Visit Provider Psychiatry & Neurology Neurology
DX: G43.009 Migraine without aura, not intractable, without status migrainosus (principal)
CPT/HCPCS: 99213

== ENCOUNTER → 2025-07-10 10:00 | Outpatient (BNVA) | payer MEDICAID, SELFPAY | PROVIDERS: PCP Internal Medicine; Visit Provider Psychiatry & Neurology Neurology | DX: G43.009 Migraine without aura, not intractable, without status migrainosus (principal); Z79.899 Other long term (current) drug therapy | CPT/HCPCS: 99212 ==